=== PATIENT | male | born 1985 | race African-American/Black ===

== ENCOUNTER 2021-06-07 03:09 | Inpatient (IN) | payer MEDICAID ==
[~2021-06-07] VITALS: Ht 170.2 cm; Wt 75.0 kg
[2021-06-07 03:46] LABS: CLARITY,URINE CLEAR (Clear); COLOR,URINE YELLOW (Yellow); GLUCOSE, URINE NEGATIVE (Neg); KETONES,URINE NEGATIVE (Neg); LEUKOCYTE ESTERASE ,URINE NEGATIVE (Neg); NITRITES, URINE NEGATIVE (Neg); OCCULT BLOOD,URINE SMALL (Neg); PROTEIN,URINE 100 mg/dl (Neg); UROBILINOGEN,URINE 0.2 E.U/dL (0.2-1.0)
[2021-06-07 04:01] LABS: UA COLLECTION TYPE NON-SPECIFIED
[2021-06-07 04:18] LABS: SQUAMOUS EPITHELIAL CELL,UR FEW /LPF (FEW)
[2021-06-07 04:19] LABS: HYALINE CASTS 0-3 /LPF (NEGATIVE); WBC CLUMPS,URINE FEW /HPF (NEGATIVE)
[2021-06-07 04:22] LABS: BACTERIA,URINE NONE SEEN /HPF (Neg); SPERM FEW /HPF (NEGATIVE)
[2021-06-07 04:25] LABS: BASOPHILS # (AUTO) 0.1 X10'3 (0-0.2); BASOPHILS % (AUTO) 0.5 % (0-1); EOSINOPHILS # (AUTO) 0.1 X10'3 (0-0.9); EOSINOPHILS % (AUTO) 0.7 % (0-6); HEMOGLOBIN 14.4 g/dl (14.0-17.9); LYMPHOCYTES % (AUTO) 13.8 % (21-51); MEAN CORPUSCULAR HEMOGLOBIN 32.1 PG (27.0-31.0); MEAN CORPUSCULAR HGB CONC 33.5 g/dL (33.0-36.5); MEAN CORPUSCULAR VOLUME 95.9 FL (78-98); MEAN PLATELET VOLUME 7.2 FL (7.4-10.4); MONOCYTES # (AUTO) 2.2 X10'3 (0-0.9); MONOCYTES % (AUTO) 15.2 % (2-12); NEUTROPHILS # (AUTO) 9.9 X10'3 (1.8-7.7); NEUTROPHILS % (AUTO) 69.8 % (42-75); PLATELET COUNT 272 X10'3 (140-440); RED BLOOD COUNT 4.48 X10'6 (4.70-6.10); RED CELL DISTRIBUTION WIDTH 14.5 % (11.5-14.5); WHITE BLOOD COUNT 14.3 X10'3 (4.5-11.0)
[2021-06-07 04:38] LABS: ALANINE AMINOTRANSFERASE 15 U/L (12-78); ALBUMIN 3.4 G/DL (3.4-5.0); ALKALINE PHOSPHATASE 77 IU/L (46-116); ANION GAP 10 (8-16); ASPARTATE AMINO TRANSFERASE 18 U/L (10-37); BILIRUBIN,TOTAL 0.5 MG/DL (0.1-1.0); BLOOD UREA NITROGEN 32 MG/DL (7-18); BUN/CREATININE RATIO 6.9 (5.4-32.0); CHLORIDE 102 MMOL/L (99-107); CREATININE 4.64 MG/DL (0.60-1.10); GLUCOSE 85 MG/DL (70-104); POTASSIUM 4.3 MMOL/L (3.5-5.1); SODIUM 135 MMOL/L (135-145); TOTAL CARBON DIOXIDE 23.1 MMOL/L (24-32); TOTAL PROTEIN 6.8 G/DL (6.4-8.2); eGFR 17 ML/MIN
[2021-06-07] MEDS ORDERED: morphine 4 MG/ML inj SYRINge IV ONE (04:45)
[2021-06-07] MEDS ORDERED: ondansetron/PF 4mg/2ml inj IV ONE (04:45)
[2021-06-07 05:11] LABS: TOTAL CELLS COUNTED 100
[2021-06-07 05:12] LABS: PLATELET ESTIMATE NORMAL; STOMATOCYTES FEW
[2021-06-07] MEDS ORDERED: CefTRIAXone/D5W-Rocephin 1gm 50 ML IV ONE ×2 (06:05→07:00)
--- NOTE | 2021-06-07 06:30 | NUR ---
first contact with pt. found supine in bed, reports abd pain 02/05. will inform md. no distress. awaiting bed assignement.
[2021-06-07] MEDS ORDERED: normal saline 1000ml 1,000 ML IV ONE (07:05)
[2021-06-07] MEDS ORDERED: magnesium 2GM in 50ml NS 50 ML IV PRN (07:15)
[2021-06-07] MEDS ORDERED: bisacodyl 10mg suppository rectal RC PRN (07:15)
[2021-06-07] MEDS ORDERED: potassium Cl 20 mEq SR tablet PO PRN ×2 (07:15)
[2021-06-07] MEDS ORDERED: HYDROcodone/acetaminophen 5mg/325mg tablet PO PRN (07:15)
[2021-06-07] MEDS ORDERED: acetaminophen 325mg tablet PO PRN ×2 (07:15)
[2021-06-07] MEDS ORDERED: magnesium 4gm in 100ml NS 100 ML IV PRN (07:15)
[2021-06-07] MEDS ORDERED: mag hydrox/Alum hydrox/simeth 30ml oral suspension PO PRN (07:15)
[2021-06-07] MEDS ORDERED: magnesium Cl slow-release 64mg tablet PO PRN (07:15)
[2021-06-07] MEDS ORDERED: magnesium hydroxide 30ml (MOM) UD suspension PO PRN (07:15)
[2021-06-07] MEDS: normal saline 1000ml 1,000 ML IV SCH ×3 (07:15→22:58)
[2021-06-07] MEDS ORDERED: potassium CL 10mEq/100ml bag 100 ML IV PRN (07:15)
[2021-06-07] MEDS ORDERED: HYDROcodone/acetaminophen 10/325mg tab PO PRN (07:15)
[2021-06-07] MEDS ORDERED: ondansetron/PF 4mg/2ml inj IV PRN (07:15)
[2021-06-07] MEDS: docusate sod 100mg capsule PO SCH ×2 (07:42→20:30)
--- NOTE | 2021-06-07 07:56 | NUR ---
SPOKE WITH DR ALFREDO AND RECEIVED ORDER FOR REGULAR DIET FOR PATIENT.
[2021-06-07] MEDS ORDERED: CefTRIAXone/D5W-Rocephin 1gm 50 ML IV SCH (08:00)
[2021-06-07] MEDS: K and/or MAG REPLACEMENT MC SCH ×2 (08:00→20:00)
[2021-06-07 08:23] LABS: MAGNESIUM 1.6 MG/DL (1.5-2.4); POTASSIUM 5.1 MMOL/L (3.5-5.1)
--- NOTE | 2021-06-07 08:30 | NUR ---
breakfast tray provided for pt.
[2021-06-07] MEDS: heparin, porcine 5000 units/ml vial SQ SCH ×3 (09:15→20:26)
[2021-06-07] MEDS ORDERED: SERT-433 PO (09:29)
[2021-06-07] MEDS ORDERED: FLO0.4C PO (09:29)
[2021-06-07] MEDS ORDERED: SILD100T70 PO (09:29)
--- NOTE | 2021-06-07 10:00 | NUR ---
HOSPITALIST PAGED REGARDING IV PAIN MEDS. PT REQUESTING IV PAIN MEDS, STATES NORCO DID NOT WORK AND DOES NOT WANT NORCO.
--- NOTE | 2021-06-07 12:00 | NUR ---
LAB AT BEDSIDE.
--- NOTE | 2021-06-07 13:15 | NUR ---
DR CALDERA AT BEDSIDE FOR EVALUATION
--- NOTE | 2021-06-07 13:30 | NUR ---
IV PAIN MED ORDER RECEIVED, WILL CARRY OUT.
[2021-06-07] MEDS ORDERED: piperacillin/tazo 3.375gm/50ml 50 ML IV SCH (14:25)
[2021-06-07] MEDS: HYDROmorphone inj. 0.5 MG/0.5 ML DISP.SYRIN IV PRN ×2 (15:33→20:24)
[2021-06-07 15:42] LABS: TOTAL PROTEIN,URINE RANDOM 202.7 MG/DL
[2021-06-07] MEDS ORDERED: non-formulary drug (Sildenafil Citrate 1 TAB) PO PRN (16:25)
--- NOTE | 2021-06-07 16:52 | NUR ---
TELEPHONE REPORT TO PHIL DOSS.
[2021-06-07] MEDS ORDERED: thiamine 100mg tablet PO ONE (17:10)
--- NOTE | 2021-06-07 17:37 | NUR ---
TELEPHONE REPORT received from ER NURSE PHIL LANE.
--- NOTE | 2021-06-07 17:38 | NUR ---
Patient admitted to room 355A AAOX4. no distress noted at this time, denied pain V/S as follow T98.3 P88 R20 02 98RA B/P 184/91
[2021-06-07 17:55] VITALS: BP 180/88
[2021-06-07 20:00] VITALS: BP 182/118
[2021-06-07] MEDS ORDERED: temazepam 15mg capsule PO PRN (21:00)
[2021-06-08] VITALS: BP 163/99
[2021-06-08] MEDS: HYDROmorphone inj. 0.5 MG/0.5 ML DISP.SYRIN IV PRN ×3 (01:14→09:23)
[2021-06-08] MEDS: folic acid/vitamin B complex w/vitamin C 0.8mg tablet PO SCH ×2 (05:19→08:21)
[2021-06-08] MEDS: normal saline 1000ml 1,000 ML IV SCH ×3 (05:38→21:20)
[2021-06-08 06:16] LABS: BASOPHILS % (AUTO) 0.4 % (0-1); EOSINOPHILS # (AUTO) 0.1 X10'3 (0-0.9); EOSINOPHILS % (AUTO) 0.6 % (0-6); HEMATOCRIT 40.9 % (42.0-52.0); HEMOGLOBIN 13.7 g/dl (14.0-17.9); LYMPHOCYTES # (AUTO) 1.3 X10'3 (1.1-4.8); LYMPHOCYTES % (AUTO) 11.6 % (21-51); MEAN CORPUSCULAR HEMOGLOBIN 31.9 PG (27.0-31.0); MEAN CORPUSCULAR HGB CONC 33.5 g/dL (33.0-36.5); MEAN CORPUSCULAR VOLUME 95.1 FL (78-98); MEAN PLATELET VOLUME 7.4 FL (7.4-10.4); MONOCYTES # (AUTO) 1.3 X10'3 (0-0.9); MONOCYTES % (AUTO) 11.9 % (2-12); NEUTROPHILS # (AUTO) 8.6 X10'3 (1.8-7.7); NEUTROPHILS % (AUTO) 75.5 % (42-75); PLATELET COUNT 248 X10'3 (140-440); RED CELL DISTRIBUTION WIDTH 14.1 % (11.5-14.5); WHITE BLOOD COUNT 11.4 X10'3 (4.5-11.0)
[2021-06-08 06:46] LABS: ALANINE AMINOTRANSFERASE 13 U/L (12-78); ALBUMIN 3.1 G/DL (3.4-5.0); ALKALINE PHOSPHATASE 84 IU/L (46-116); ANION GAP 10 (8-16); ASPARTATE AMINO TRANSFERASE 14 U/L (10-37); BILIRUBIN,TOTAL 0.8 MG/DL (0.1-1.0); BLOOD UREA NITROGEN 41 MG/DL (7-18); BUN/CREATININE RATIO 8.1 (5.4-32.0); CALCIUM 7.3 MG/DL (8.5-10.1); CHLORIDE 102 MMOL/L (99-107); CREATININE 5.09 MG/DL (0.60-1.10); GLUCOSE 104 MG/DL (70-104); MAGNESIUM 1.5 MG/DL (1.5-2.4); POTASSIUM 4.2 MMOL/L (3.5-5.1); SODIUM 135 MMOL/L (135-145); TOTAL CARBON DIOXIDE 22.7 MMOL/L (24-32); TOTAL PROTEIN 6.1 G/DL (6.4-8.2); eGFR 16 ML/MIN
[2021-06-08] MEDS: heparin, porcine 5000 units/ml vial SQ SCH ×2 (08:00→19:42)
[2021-06-08] MEDS: K and/or MAG REPLACEMENT MC SCH ×2 (08:00→20:00)
[2021-06-08] MEDS: sertraline 50mg tablet PO SCH (08:21)
[2021-06-08] MEDS: tamsulosin 0.4mg capsule PO SCH (08:21)
[2021-06-08] MEDS: docusate sod 100mg capsule PO SCH ×2 (08:21→20:39)
[2021-06-08 09:09] VITALS: BP 171/98
[2021-06-08] MEDS: hydrALAZINE 20mg/ml inj. IV PRN (09:32)
[2021-06-08] MEDS: piperacillin/tazo 3.375gm/50ml 50 ML IV SCH ×2 (11:48)
[2021-06-08 13:08] VITALS: BP 164/107
[2021-06-08] MEDS: HYDROmorphone 1 mg/ml syringe IV PRN ×3 (13:21→21:17)
[2021-06-08 14:40] LABS: CREATINE KINASE 52 U/L (39-308)
[2021-06-08 20:52] VITALS: BP 154/97
[2021-06-09] MEDS: piperacillin/tazo 3.375gm/50ml 50 ML IV SCH ×3 (00:10→11:38)
[2021-06-09] MEDS: normal saline 1000ml 1,000 ML IV SCH ×3 (01:38→20:48)
[2021-06-09] MEDS: HYDROmorphone 1 mg/ml syringe IV PRN ×6 (02:07→20:52)
[2021-06-09] MEDS: hydrALAZINE 20mg/ml inj. IV PRN ×2 (04:15→11:39)
[2021-06-09 05:50] LABS: BASOPHILS % (AUTO) 0.3 % (0-1); EOSINOPHILS # (AUTO) 0.1 X10'3 (0-0.9); EOSINOPHILS % (AUTO) 0.8 % (0-6); HEMATOCRIT 42.5 % (42.0-52.0); HEMOGLOBIN 14.2 g/dl (14.0-17.9); LYMPHOCYTES # (AUTO) 1.8 X10'3 (1.1-4.8); MEAN CORPUSCULAR HEMOGLOBIN 32.1 PG (27.0-31.0); MEAN CORPUSCULAR HGB CONC 33.5 g/dL (33.0-36.5); MEAN CORPUSCULAR VOLUME 95.7 FL (78-98); MEAN PLATELET VOLUME 7.5 FL (7.4-10.4); MONOCYTES # (AUTO) 1.2 X10'3 (0-0.9); MONOCYTES % (AUTO) 10.1 % (2-12); NEUTROPHILS # (AUTO) 8.8 X10'3 (1.8-7.7); NEUTROPHILS % (AUTO) 73.8 % (42-75); PLATELET COUNT 256 X10'3 (140-440); RED BLOOD COUNT 4.44 X10'6 (4.70-6.10); RED CELL DISTRIBUTION WIDTH 13.9 % (11.5-14.5)
[2021-06-09 06:34] LABS: ALANINE AMINOTRANSFERASE 16 U/L (12-78); ALBUMIN 3.2 G/DL (3.4-5.0); ALBUMIN/GLOBULIN RATIO 0.9 (1.1-1.5); ALKALINE PHOSPHATASE 85 IU/L (46-116); ANION GAP 12 (8-16); ASPARTATE AMINO TRANSFERASE 14 U/L (10-37); BILIRUBIN,TOTAL 0.7 MG/DL (0.1-1.0); BLOOD UREA NITROGEN 38 MG/DL (7-18); BUN/CREATININE RATIO 8.6 (5.4-32.0); CALCIUM 8.1 MG/DL (8.5-10.1); CHLORIDE 105 MMOL/L (99-107); GLUCOSE 106 MG/DL (70-104); MAGNESIUM 1.8 MG/DL (1.5-2.4); POTASSIUM 3.7 MMOL/L (3.5-5.1); SODIUM 139 MMOL/L (135-145); TOTAL CARBON DIOXIDE 21.7 MMOL/L (24-32); TOTAL PROTEIN 6.7 G/DL (6.4-8.2); eGFR 19 ML/MIN
[2021-06-09] MEDS: tamsulosin 0.4mg capsule PO SCH (07:36)
[2021-06-09] MEDS: folic acid/vitamin B complex w/vitamin C 0.8mg tablet PO SCH (07:36)
[2021-06-09] MEDS: docusate sod 100mg capsule PO SCH ×2 (07:37→19:58)
[2021-06-09] MEDS: sertraline 50mg tablet PO SCH (07:37)
[2021-06-09] MEDS: heparin, porcine 5000 units/ml vial SQ SCH ×2 (07:37→19:54)
[2021-06-09] MEDS: K and/or MAG REPLACEMENT MC SCH ×2 (08:00→20:00)
[2021-06-09] MEDS ORDERED: LORazepam 0.5 MG tablet PO PRN (15:00)
[2021-06-09] MEDS: amLODIPine 5mg tablet PO SCH (15:38)
[2021-06-09 20:00] VITALS: BP 175/95
[2021-06-09] MEDS: diatr meglu/diatrizoate 30ml oral sol.-(3 dose) bottle PO SCH (21:25)
[2021-06-10] VITALS: BP 180/102
[2021-06-10 00:02] VITALS: BP 160/94
[2021-06-10] MEDS: piperacillin/tazo 3.375gm/50ml 50 ML IV SCH ×2 (00:24→12:33)
[2021-06-10] MEDS: HYDROmorphone 1 mg/ml syringe IV PRN ×5 (01:21→21:06)
[2021-06-10] MEDS: normal saline 1000ml 1,000 ML IV SCH ×2 (05:02→21:04)
[2021-06-10 06:32] LABS: BASOPHILS % (AUTO) 0.3 % (0-1); EOSINOPHILS # (AUTO) 0.2 X10'3 (0-0.9); HEMATOCRIT 39.9 % (42.0-52.0); HEMOGLOBIN 13.4 g/dl (14.0-17.9); LYMPHOCYTES # (AUTO) 1.3 X10'3 (1.1-4.8); LYMPHOCYTES % (AUTO) 14.3 % (21-51); MEAN CORPUSCULAR HEMOGLOBIN 32.3 PG (27.0-31.0); MEAN CORPUSCULAR HGB CONC 33.6 g/dL (33.0-36.5); MEAN PLATELET VOLUME 7.7 FL (7.4-10.4); MONOCYTES # (AUTO) 1.2 X10'3 (0-0.9); NEUTROPHILS # (AUTO) 6.4 X10'3 (1.8-7.7); NEUTROPHILS % (AUTO) 70.4 % (42-75); PLATELET COUNT 272 X10'3 (140-440); RED BLOOD COUNT 4.16 X10'6 (4.70-6.10); RED CELL DISTRIBUTION WIDTH 14.1 % (11.5-14.5); WHITE BLOOD COUNT 9.1 X10'3 (4.5-11.0)
[2021-06-10] MEDS: hydrALAZINE 20mg/ml inj. IV PRN ×2 (06:32→19:43)
[2021-06-10 06:57] LABS: ALANINE AMINOTRANSFERASE 11 U/L (12-78); ALBUMIN 2.9 G/DL (3.4-5.0); ALKALINE PHOSPHATASE 67 IU/L (46-116); ANION GAP 14 (8-16); ASPARTATE AMINO TRANSFERASE 13 U/L (10-37); BILIRUBIN,TOTAL 0.5 MG/DL (0.1-1.0); BLOOD UREA NITROGEN 28 MG/DL (7-18); BUN/CREATININE RATIO 10.3 (5.4-32.0); CALCIUM 8.2 MG/DL (8.5-10.1); CHLORIDE 109 MMOL/L (99-107); CREATININE 2.73 MG/DL (0.60-1.10); GLUCOSE 99 MG/DL (70-104); MAGNESIUM 1.6 MG/DL (1.5-2.4); POTASSIUM 4.3 MMOL/L (3.5-5.1); SODIUM 142 MMOL/L (135-145); TOTAL CARBON DIOXIDE 19.3 MMOL/L (24-32); TOTAL PROTEIN 5.8 G/DL (6.4-8.2); eGFR 32 ML/MIN
[2021-06-10] MEDS: diatr meglu/diatrizoate 30ml oral sol.-(3 dose) bottle PO SCH ×2 (07:27→10:01)
[2021-06-10 07:47] VITALS: BP 137/84
[2021-06-10] MEDS: heparin, porcine 5000 units/ml vial SQ SCH ×2 (08:20→19:37)
[2021-06-10] MEDS: tamsulosin 0.4mg capsule PO SCH (08:21)
[2021-06-10] MEDS: folic acid/vitamin B complex w/vitamin C 0.8mg tablet PO SCH (08:21)
[2021-06-10] MEDS: sertraline 50mg tablet PO SCH (08:21)
[2021-06-10] MEDS: amLODIPine 5mg tablet PO SCH (08:21)
[2021-06-10] MEDS: docusate sod 100mg capsule PO SCH ×2 (08:21→19:44)
[2021-06-10] MEDS: K and/or MAG REPLACEMENT MC SCH ×2 (08:36→19:45)
[2021-06-10 12:00] VITALS: BP 157/101
[2021-06-10 20:42] VITALS: BP 171/97
[2021-06-11] VITALS: BP 150/90
[2021-06-11] MEDS: piperacillin/tazo 3.375gm/50ml 50 ML IV SCH ×4 (00:42→23:46)
[2021-06-11] MEDS: HYDROmorphone 1 mg/ml syringe IV PRN ×3 (01:05→09:19)
[2021-06-11 06:36] LABS: BASOPHILS % (AUTO) 0.3 % (0-1); EOSINOPHILS # (AUTO) 0.2 X10'3 (0-0.9); EOSINOPHILS % (AUTO) 2.1 % (0-6); HEMATOCRIT 44.1 % (42.0-52.0); HEMOGLOBIN 14.7 g/dl (14.0-17.9); LYMPHOCYTES # (AUTO) 1.1 X10'3 (1.1-4.8); LYMPHOCYTES % (AUTO) 11.5 % (21-51); MEAN CORPUSCULAR HEMOGLOBIN 32.1 PG (27.0-31.0); MEAN CORPUSCULAR HGB CONC 33.2 g/dL (33.0-36.5); MEAN CORPUSCULAR VOLUME 96.7 FL (78-98); MEAN PLATELET VOLUME 7.5 FL (7.4-10.4); MONOCYTES # (AUTO) 1.3 X10'3 (0-0.9); MONOCYTES % (AUTO) 13.4 % (2-12); NEUTROPHILS # (AUTO) 6.9 X10'3 (1.8-7.7); NEUTROPHILS % (AUTO) 72.7 % (42-75); PLATELET COUNT 319 X10'3 (140-440); RED BLOOD COUNT 4.57 X10'6 (4.70-6.10); RED CELL DISTRIBUTION WIDTH 14.4 % (11.5-14.5); WHITE BLOOD COUNT 9.5 X10'3 (4.5-11.0)
[2021-06-11 06:48] LABS: ALANINE AMINOTRANSFERASE 12 U/L (12-78); ALBUMIN/GLOBULIN RATIO 0.9 (1.1-1.5); ALKALINE PHOSPHATASE 71 IU/L (46-116); ANION GAP 12 (8-16); ASPARTATE AMINO TRANSFERASE 11 U/L (10-37); BILIRUBIN,TOTAL 0.4 MG/DL (0.1-1.0); BLOOD UREA NITROGEN 16 MG/DL (7-18); BUN/CREATININE RATIO 9.4 (5.4-32.0); CALCIUM 8.5 MG/DL (8.5-10.1); CHLORIDE 110 MMOL/L (99-107); GLUCOSE 92 MG/DL (70-104); MAGNESIUM 1.2 MG/DL (1.5-2.4); POTASSIUM 4.4 MMOL/L (3.5-5.1); SODIUM 143 MMOL/L (135-145); TOTAL CARBON DIOXIDE 21.2 MMOL/L (24-32); TOTAL PROTEIN 6.2 G/DL (6.4-8.2); eGFR 55 ML/MIN
[2021-06-11 07:00] VITALS: BP 163/97
[2021-06-11] MEDS: K and/or MAG REPLACEMENT MC SCH ×2 (08:00→20:00)
[2021-06-11] MEDS: sertraline 50mg tablet PO SCH (08:19)
[2021-06-11] MEDS: docusate sod 100mg capsule PO SCH ×2 (08:19→19:38)
[2021-06-11] MEDS: tamsulosin 0.4mg capsule PO SCH (08:20)
[2021-06-11] MEDS: heparin, porcine 5000 units/ml vial SQ SCH ×2 (08:20→19:39)
[2021-06-11] MEDS: folic acid/vitamin B complex w/vitamin C 0.8mg tablet PO SCH (08:20)
[2021-06-11] MEDS: amLODIPine 5mg tablet PO SCH (08:20)
[2021-06-11] MEDS ORDERED: amLODIPine 5mg tablet PO ONE (08:35)
[2021-06-11] MEDS: normal saline 1000ml 1,000 ML IV SCH ×2 (09:19→23:31)
--- NOTE | 2021-06-11 09:53 | NUR ---
VO from dr jailene khalil for PO mg replacement
[2021-06-11] MEDS ORDERED: magnesium 4gm in 100ml NS 100 ML IV PRN (10:55)
[2021-06-11] MEDS ORDERED: potassium Cl 40MEQ/1/2NS 520ml 520 ML IV PRN (10:55)
[2021-06-11 11:49] VITALS: BP 167/101
[2021-06-11] MEDS: magnesium Cl slow-release 64mg tablet PO PRN ×3 (12:11→23:18)
[2021-06-11] MEDS: hydrALAZINE 20mg/ml inj. IV PRN (12:11)
--- NOTE | 2021-06-11 12:39 | NUR ---
message to dr jailene hernandez"PAGER ID: [phone] MESSAGE: [place] requesting Letcher be changed to another PO med, maybe Percocet. ~Jeannette [phone]"
[2021-06-11] MEDS: oxyCODONE/APAP 5-325mg tablet PO PRN (17:39)
[2021-06-11 18:00] VITALS: BP 135/89
[2021-06-11 20:47] VITALS: BP 135/89
[2021-06-12 00:10] VITALS: BP 145/85
[2021-06-12] MEDS: oxyCODONE/APAP 5-325mg tablet PO PRN ×3 (00:44→09:34)
[2021-06-12 06:12] LABS: BASOPHILS % (AUTO) 0.2 % (0-1); EOSINOPHILS # (AUTO) 0.2 X10'3 (0-0.9); EOSINOPHILS % (AUTO) 2.2 % (0-6); HEMOGLOBIN 15.1 g/dl (14.0-17.9); LYMPHOCYTES # (AUTO) 1.9 X10'3 (1.1-4.8); LYMPHOCYTES % (AUTO) 20.9 % (21-51); MEAN CORPUSCULAR HEMOGLOBIN 32.7 PG (27.0-31.0); MEAN CORPUSCULAR HGB CONC 34.3 g/dL (33.0-36.5); MEAN CORPUSCULAR VOLUME 95.1 FL (78-98); MEAN PLATELET VOLUME 7.1 FL (7.4-10.4); MONOCYTES # (AUTO) 1.3 X10'3 (0-0.9); MONOCYTES % (AUTO) 15.1 % (2-12); NEUTROPHILS # (AUTO) 5.5 X10'3 (1.8-7.7); NEUTROPHILS % (AUTO) 61.6 % (42-75); PLATELET COUNT 340 X10'3 (140-440); RED BLOOD COUNT 4.63 X10'6 (4.70-6.10); RED CELL DISTRIBUTION WIDTH 14.1 % (11.5-14.5); WHITE BLOOD COUNT 8.9 X10'3 (4.5-11.0)
[2021-06-12 06:39] LABS: ALANINE AMINOTRANSFERASE 14 U/L (12-78); ALBUMIN 2.9 G/DL (3.4-5.0); ALBUMIN/GLOBULIN RATIO 0.9 (1.1-1.5); ANION GAP 8 (8-16); ASPARTATE AMINO TRANSFERASE 15 U/L (10-37); BILIRUBIN,TOTAL 0.4 MG/DL (0.1-1.0); BLOOD UREA NITROGEN 10 MG/DL (7-18); BUN/CREATININE RATIO 7.2 (5.4-32.0); CALCIUM 8.2 MG/DL (8.5-10.1); CHLORIDE 109 MMOL/L (99-107); CREATININE 1.39 MG/DL (0.60-1.10); GLUCOSE 81 MG/DL (70-104); POTASSIUM 3.9 MMOL/L (3.5-5.1); SODIUM 141 MMOL/L (135-145); TOTAL CARBON DIOXIDE 23.8 MMOL/L (24-32); TOTAL PROTEIN 6.2 G/DL (6.4-8.2); eGFR 70 ML/MIN
[2021-06-12 06:48] LABS: PLATELET ESTIMATE NORMAL; TOTAL CELLS COUNTED 100
--- NOTE | 2021-06-12 06:48 | NUR ---
Patient in room NADIA 351. I have received report from VENITA VILLARREAL, and had the opportunity to ask questions and assume patient care.
[2021-06-12 06:49] LABS: ALKALINE PHOSPHATASE 64 IU/L (46-116)
[2021-06-12 07:26] VITALS: BP 138/96
[2021-06-12] MEDS: K and/or MAG REPLACEMENT MC SCH (07:37)
[2021-06-12] MEDS: docusate sod 100mg capsule PO SCH (07:49)
[2021-06-12] MEDS: tamsulosin 0.4mg capsule PO SCH (07:49)
[2021-06-12] MEDS: sertraline 50mg tablet PO SCH (07:49)
[2021-06-12] MEDS: folic acid/vitamin B complex w/vitamin C 0.8mg tablet PO SCH (07:52)
[2021-06-12] MEDS: heparin, porcine 5000 units/ml vial SQ SCH (07:52)
[2021-06-12] MEDS ORDERED: amLODIPine 5mg tablet PO SCH (08:00)
[2021-06-12] MEDS: normal saline 1000ml 1,000 ML IV SCH (11:18)
[2021-06-12 11:52] VITALS: BP 133/81
[2021-06-12] MEDS: piperacillin/tazo 3.375gm/50ml 50 ML IV SCH (12:33)
[2021-06-12] MEDS ORDERED: CIPR-260 PO (14:41)
--- NOTE | 2021-06-12 15:26 | NUR ---
Patient discharged home with friend BRENDA4. no distress/SOB noted at this time.
== END 2021-06-12 15:17 | disposition home or self-care (01) | DRG 463 ==
LOC: ER 03:11 → ED HOLD 07:20 → EEVIPCON 07:20 → SUR 3N 17:32
PROVIDERS: ADMIT Family Medicine; ATTEND Family Medicine
DX: N10 Acute pyelonephritis (principal); N17.9 Acute kidney failure, unspecified; F10.20 Alcohol dependence, uncomplicated; F14.90 Cocaine use, unspecified, uncomplicated; I10 Essential (primary) hypertension; F17.210 Nicotine dependence, cigarettes, uncomplicated; Z56.0 Unemployment, unspecified; Z79.899 Other long term (current) drug therapy
CPT/HCPCS: 36415; 74176; 76770; 80053; 81001; 82550; 82570; 83605; 83735; 83935; 84132; 84133; 84156; 84300; 85007; 85025; 87040; 87081; 87088; 93975; 96365; 99285; G0378; J0360; J0696; J1170; J1644; J2270; J2405; J2543; J7030; Q9963

== ENCOUNTER 2022-01-31 11:00 | Emergency (ER) | payer MEDICAID ==
[~2022-01-31] VITALS: Ht 170.2 cm; Wt 79.5 kg
[~2022-01-31 11:00] MED LIST: CIPR-260 PO; FLO0.4C PO; SERT-433 PO; SILD100T70 PO
[2022-01-31 11:22] VITALS: BP 158/90
--- NOTE | 2022-01-31 11:36 | NUR ---
per vicky briggs in triage, removed catheter, there was 8cc fluid in blub. 50cc red urine in leg bag. pt is a smoker.
--- NOTE | 2022-01-31 11:46 | NUR ---
pt reports relief from pain after catheter removed. pt voided 50cc in cup
[2022-01-31] MEDS ORDERED: HYDROcodone/acetaminophen 5mg/325mg tablet PO ONE (13:50)
== END 2022-01-31 14:11 | disposition home or self-care (01) ==
LOC: ER 11:01
DX: T85.9XXA Unspecified complication of internal prosthetic device, implant and graft, initial encounter (principal); R33.9 Retention of urine, unspecified; N32.89 Other specified disorders of bladder
CPT/HCPCS: 99283

== ENCOUNTER 2022-02-14 16:22 | Emergency (ER) | payer MEDICAID ==
[~2022-02-14] VITALS: Ht 167.6 cm; Wt 74.3 kg
[2022-02-14 16:49] VITALS: BP 145/100
--- NOTE | 2022-02-14 21:10 | NUR ---
pt. bladder scanned. no urine seen. pt stated that he has kidney failure.
[2022-02-14 21:52] LABS: CLARITY,URINE SLIGHTLY CLOUDY (Clear); COLOR,URINE YELLOW (Yellow); GLUCOSE, URINE NEGATIVE (Neg); KETONES,URINE NEGATIVE (Neg); LEUKOCYTE ESTERASE ,URINE NEGATIVE (Neg); NITRITES, URINE NEGATIVE (Neg); OCCULT BLOOD,URINE NEGATIVE (Neg); PROTEIN,URINE TRACE mg/dl (Neg); UROBILINOGEN,URINE 0.2 E.U/dL (0.2-1.0)
[2022-02-14 21:59] LABS: UA COLLECTION TYPE CLN CATCH MIDSTREAM
[2022-02-14 22:13] LABS: BACTERIA,URINE FEW /HPF (Neg); MUCUS STRANDS FEW /LPF (Neg); SPERM MANY /HPF (NEGATIVE); SQUAMOUS EPITHELIAL CELL,UR NONE SEEN /LPF (FEW)
[2022-02-15 01:37] LABS: URINE AMPHETAMINE SCREEN POSITIVE (Neg); URINE BARBITUATE SCREEN NEGATIVE (Neg); URINE BENZODIAZEPINES SCREEN NEGATIVE (Neg); URINE CANNABINOID SCREEN NEGATIVE (Neg); URINE COCAINE SCREEN NEGATIVE (Neg); URINE METHADONE SCREEN NEGATIVE (Neg); URINE OPIATE SCREEN NEGATIVE (Neg); URINE PHENCYCLIDINE SCREEN NEGATIVE (Neg)
--- NOTE | 2022-02-15 01:48 | NUR ---
blood sent to lab
[2022-02-15 01:56] LABS: BASOPHILS # (AUTO) 0.1 X10'3 (0-0.2); BASOPHILS % (AUTO) 0.9 % (0-1); EOSINOPHILS # (AUTO) 0.1 X10'3 (0-0.9); EOSINOPHILS % (AUTO) 1.3 % (0-6); HEMATOCRIT 42.8 % (42.0-52.0); HEMOGLOBIN 15.1 g/dl (14.0-17.9); LYMPHOCYTES # (AUTO) 2.9 X10'3 (1.1-4.8); MEAN CORPUSCULAR HEMOGLOBIN 33.7 PG (27.0-31.0); MEAN CORPUSCULAR HGB CONC 35.2 g/dL (33.0-36.5); MEAN CORPUSCULAR VOLUME 95.8 FL (78-98); MEAN PLATELET VOLUME 6.4 FL (7.4-10.4); MONOCYTES % (AUTO) 11.5 % (2-12); NEUTROPHILS # (AUTO) 4.7 X10'3 (1.8-7.7); NEUTROPHILS % (AUTO) 53.3 % (42-75); PLATELET COUNT 327 X10'3 (140-440); RED BLOOD COUNT 4.46 X10'6 (4.70-6.10); RED CELL DISTRIBUTION WIDTH 14.1 % (11.5-14.5); WHITE BLOOD COUNT 8.8 X10'3 (4.5-11.0)
[2022-02-15 02:06] LABS: ALANINE AMINOTRANSFERASE 23 U/L (12-78); ALBUMIN 3.7 G/DL (3.4-5.0); ALBUMIN/GLOBULIN RATIO 1.1 (1.1-1.5); ALKALINE PHOSPHATASE 88 IU/L (46-116); ANION GAP 3 (8-16); ASPARTATE AMINO TRANSFERASE 36 U/L (10-37); BILIRUBIN,TOTAL 0.6 MG/DL (0.1-1.0); BLOOD UREA NITROGEN 22 MG/DL (7-18); BUN/CREATININE RATIO 23.4 (5.4-32.0); CALCIUM 9.1 MG/DL (8.5-10.1); CHLORIDE 100 MMOL/L (99-107); CREATININE 0.94 MG/DL (0.60-1.10); GLUCOSE 99 MG/DL (70-104); POTASSIUM 4.2 MMOL/L (3.5-5.1); SODIUM 133 MMOL/L (135-145); TOTAL CARBON DIOXIDE 29.7 MMOL/L (24-32); TOTAL PROTEIN 7.2 G/DL (6.4-8.2); eGFR > 90 ML/MIN
[2022-02-15] MEDS ORDERED: levoFLOXACIN 250mg tablet PO ONE (02:20)
[2022-02-15] MEDS ORDERED: CIPR-202 PO (02:20)
== END 2022-02-15 02:42 | disposition home or self-care (01) ==
LOC: ER 16:23
DX: N39.0 Urinary tract infection, site not specified (principal); M54.89 Other dorsalgia; F14.90 Cocaine use, unspecified, uncomplicated; Z72.89 Other problems related to lifestyle; Z56.0 Unemployment, unspecified; Z88.8 Allergy status to other drugs, medicaments and biological substances; Z79.2 Long term (current) use of antibiotics; Z79.899 Other long term (current) drug therapy
CPT/HCPCS: 36415; 80053; 80305; 81001; 85025; 87088; 99283

== ENCOUNTER 2022-03-16 14:31 | Emergency (ER) | payer MEDICAID ==
[~2022-03-16] VITALS: Ht 167.6 cm; Wt 90.0 kg
[~2022-03-16 14:31] MED LIST changes: +CIPR-202 PO
[2022-03-16 14:40] VITALS: BP 154/82
== END 2022-03-16 16:45 | disposition left against medical advice (07) ==
LOC: ER 14:32
DX: Z76.0 Encounter for issue of repeat prescription (principal); Z53.21 Procedure and treatment not carried out due to patient leaving prior to being seen by health care provider

== ENCOUNTER 2022-06-27 17:57 | Emergency (ER) | payer MEDICAID ==
[~2022-06-27] VITALS: Ht 167.6 cm; Wt 77.3 kg
[~2022-06-27 17:57] MED LIST changes: -CIPR-202 PO
[2022-06-27 18:07] VITALS: BP 138/109
== END 2022-06-27 20:43 | disposition home or self-care (01) ==
LOC: ER 17:58
DX: M25.562 Pain in left knee (principal); R07.89 Other chest pain; M25.552 Pain in left hip; F17.210 Nicotine dependence, cigarettes, uncomplicated; F14.90 Cocaine use, unspecified, uncomplicated; Z72.89 Other problems related to lifestyle; Z56.0 Unemployment, unspecified; Z88.8 Allergy status to other drugs, medicaments and biological substances; Z79.899 Other long term (current) drug therapy; W01.0XXA Fall on same level from slipping, tripping and stumbling without subsequent striking against object, initial encounter; Y93.89 Activity, other specified; Y92.89 Other specified places as the place of occurrence of the external cause; Y99.8 Other external cause status
CPT/HCPCS: 71250; 74176; 99284

== ENCOUNTER 2022-09-14 10:45 | Emergency (ER) | payer MEDICAID, OTHER ==
[~2022-09-14] VITALS: Ht 167.6 cm; Wt 77.3 kg
[2022-09-14 10:47] VITALS: BP 139/96
[2022-09-14] MEDS ORDERED: ibuprofen tablet 400 MG TABLET PO ONE (11:15)
[2022-09-14] MEDS ORDERED: IBUP-1986 PO (11:18)
== END 2022-09-14 11:31 | disposition home or self-care (01) ==
LOC: ER 10:46
DX: M25.562 Pain in left knee (principal); F11.10 Opioid abuse, uncomplicated; Z79.899 Other long term (current) drug therapy; Z88.6 Allergy status to analgesic agent; Z79.1 Long term (current) use of non-steroidal anti-inflammatories (NSAID); W19.XXXA Unspecified fall, initial encounter; Y93.89 Activity, other specified; Y92.89 Other specified places as the place of occurrence of the external cause; Y99.8 Other external cause status
CPT/HCPCS: 73564; 99283

== ENCOUNTER 2023-10-19 12:12 | Emergency (ER) | payer MEDICAID ==
[~2023-10-19] VITALS: Ht 167.6 cm; Wt 68.5 kg
[~2023-10-19 12:12] MED LIST changes: +IBUP-1986 PO
[2023-10-19 14:04] VITALS: BP 137/100; PULSE 83; RESP 16; TEMP 98; O2SAT 99
== END 2023-10-19 14:01 | disposition home or self-care (01) ==
LOC: ER 12:13
DX: G56.01 Carpal tunnel syndrome, right upper limb (principal); R00.2 Palpitations; F10.90 Alcohol use, unspecified, uncomplicated; F14.90 Cocaine use, unspecified, uncomplicated; Z79.899 Other long term (current) drug therapy; Z79.2 Long term (current) use of antibiotics; Z88.8 Allergy status to other drugs, medicaments and biological substances
CPT/HCPCS: 93005; 99283

== ENCOUNTER 2023-11-06 00:31 | Emergency (ER) | payer MEDICAID ==
[~2023-11-06] VITALS: Ht 170.2 cm; Wt 68.4 kg
[2023-11-06 01:10] LABS: BASOPHILS % (AUTO) 0.6 % (0-1); EOSINOPHILS # (AUTO) 0.1 X10'3 (0-0.9); HEMATOCRIT 38.8 % (42.0-52.0); HEMOGLOBIN 13.1 g/dl (14.0-17.9); LYMPHOCYTES # (AUTO) 2.5 X10'3 (1.1-4.8); LYMPHOCYTES % (AUTO) 32.3 % (21-51); MEAN CORPUSCULAR HEMOGLOBIN 35.7 PG (27.0-31.0); MEAN CORPUSCULAR HGB CONC 33.8 g/dL (33.0-36.5); MEAN CORPUSCULAR VOLUME 105.6 FL (78-98); MEAN PLATELET VOLUME 6.9 FL (7.4-10.4); MONOCYTES # (AUTO) 0.8 X10'3 (0-0.9); MONOCYTES % (AUTO) 10.5 % (2-12); NEUTROPHILS # (AUTO) 4.3 X10'3 (1.8-7.7); NEUTROPHILS % (AUTO) 55.6 % (42-75); PLATELET COUNT 252 X10'3 (140-440); RED BLOOD COUNT 3.68 X10'6 (4.70-6.10); RED CELL DISTRIBUTION WIDTH 13.2 % (11.5-14.5); WHITE BLOOD COUNT 7.7 X10'3 (4.5-11.0)
[2023-11-06 01:28] LABS: ALANINE AMINOTRANSFERASE 50 U/L (12-78); ALBUMIN 3.6 G/DL (3.4-5.0); ALBUMIN/GLOBULIN RATIO 0.9 (1.1-1.5); ALKALINE PHOSPHATASE 99 IU/L (46-116); ANION GAP 9 (8-16); ASPARTATE AMINO TRANSFERASE 76 U/L (10-37); BILIRUBIN,TOTAL 0.8 MG/DL (0.1-1.0); BLOOD UREA NITROGEN 10 MG/DL (7-18); BUN/CREATININE RATIO 13.9 (10.0-20.0); CALCIUM 8.7 MG/DL (8.5-10.1); CHLORIDE 107 MMOL/L (99-107); CREATININE 0.72 MG/DL (0.60-1.10); GLUCOSE 96 MG/DL (70-104); POTASSIUM 3.3 MMOL/L (3.5-5.1); SODIUM 142 MMOL/L (135-145); TOTAL CARBON DIOXIDE 25.7 MMOL/L (24-32); TOTAL PROTEIN 7.7 G/DL (6.4-8.2); eCRCL 129 ML/MIN; eGFR > 90 ML/MIN
[2023-11-06 06:56] VITALS: BP 128/55; PULSE 72; RESP 16; O2SAT 98
[2023-11-06 07:09] VITALS: TEMP 98.1
[2023-11-06] MEDS ORDERED: LEVO-65 PO (08:24)
[2023-11-06] MEDS ORDERED: CefTRIAXone 2gm/D5W 50ml BAG 50 ML IV ONE (08:25)
[2023-11-06 08:37] LABS: BILIRUBIN,URINE SMALL (Neg); CLARITY,URINE SLIGHTLY CLOUDY (Clear); COLOR,URINE YELLOW (Yellow); GLUCOSE, URINE NEGATIVE (Neg); KETONES,URINE TRACE mg/dl (Neg); LEUKOCYTE ESTERASE ,URINE NEGATIVE (Neg); NITRITES, URINE NEGATIVE (Neg); OCCULT BLOOD,URINE NEGATIVE (Neg); PROTEIN,URINE TRACE mg/dl (Neg)
[2023-11-06 08:39] LABS: UA COLLECTION TYPE NON-SPECIFIED
[2023-11-06 08:45] LABS: CAL OXALATE CRYSTALS FEW /HPF (NEGATIVE); SQUAMOUS EPITHELIAL CELL,UR NONE SEEN /LPF (FEW)
[2023-11-06 08:46] LABS: BACTERIA,URINE FEW /HPF (Neg); MUCUS STRANDS FEW /LPF (Neg); RBC,URINE NONE SEEN /HPF (0-2)
== END 2023-11-06 09:19 | disposition home or self-care (01) ==
LOC: ER 00:32
DX: K52.89 Other specified noninfective gastroenteritis and colitis (principal); F10.90 Alcohol use, unspecified, uncomplicated; Z88.8 Allergy status to other drugs, medicaments and biological substances; Z79.2 Long term (current) use of antibiotics; Z79.899 Other long term (current) drug therapy; Z79.1 Long term (current) use of non-steroidal anti-inflammatories (NSAID)
CPT/HCPCS: 36415; 74176; 80053; 81001; 85025; 87088; 87186; 99285

== ENCOUNTER 2024-03-14 16:13 | Emergency (ER) | payer MEDICAID ==
[~2024-03-14] VITALS: Ht 167.6 cm; Wt 68.9 kg
[2024-03-14 16:14] VITALS: BP 168/116; PULSE 106; O2SAT 100
[2024-03-14 17:05] VITALS: RESP 16
[2024-03-14] MEDS: ondansetron 4mg rapidly disintigrating tab PO ONE (17:05)
[2024-03-14] MEDS: proparacaine 0.5% ophthalmic drops 15ml EACHEYE ONE (17:05)
[2024-03-14] MEDS: oxyCODONE/APAP 5-325mg tablet PO ONE (17:05)
[2024-03-14] MEDS: LIDOcaine 1% W/epiNEPHrine 1:100,000 20ml vial SQ ONE (17:20)
[2024-03-14] MEDS ORDERED: CIPR10DR RIGHT EAR (17:52)
[2024-03-14 17:57] VITALS: TEMP 98.6
== END 2024-03-14 17:58 | disposition home or self-care (01) ==
LOC: ER 16:13
DX: T16.1XXA Foreign body in right ear, initial encounter (principal); F14.90 Cocaine use, unspecified, uncomplicated; F10.90 Alcohol use, unspecified, uncomplicated; Z88.8 Allergy status to other drugs, medicaments and biological substances; Z79.899 Other long term (current) drug therapy; Z79.1 Long term (current) use of non-steroidal anti-inflammatories (NSAID); W44.8XXA Other foreign body entering into or through a natural orifice, initial encounter; Y93.89 Activity, other specified; Y92.89 Other specified places as the place of occurrence of the external cause; Y99.8 Other external cause status
CPT/HCPCS: 99283

== ENCOUNTER 2024-03-15 03:07 | Emergency (ER) | payer MEDICAID ==
[~2024-03-15] VITALS: Ht 167.6 cm; Wt 71.2 kg
[~2024-03-15 03:07] MED LIST changes: +CIPR10DR RIGHT EAR
[2024-03-15 03:09] VITALS: TEMP 98.2
[2024-03-15] MEDS: mag hydrox/Alum hydrox/simeth 30ml oral suspension PO ONE (04:53)
[2024-03-15] MEDS: LIDOcaine 2% Viscous 15ml cup MM ONE (04:53)
[2024-03-15 04:59] VITALS: BP 176/118; PULSE 86; RESP 16; O2SAT 98
== END 2024-03-15 05:01 | disposition home or self-care (01) ==
LOC: ER 03:07
DX: K14.0 Glossitis (principal); F17.210 Nicotine dependence, cigarettes, uncomplicated; F14.90 Cocaine use, unspecified, uncomplicated; F10.90 Alcohol use, unspecified, uncomplicated; Z88.8 Allergy status to other drugs, medicaments and biological substances; Z79.1 Long term (current) use of non-steroidal anti-inflammatories (NSAID); Z79.899 Other long term (current) drug therapy
CPT/HCPCS: 99283

== ENCOUNTER 2024-04-05 11:14 | Emergency (ER) | payer MEDICAID ==
[~2024-04-05] VITALS: Ht 167.6 cm; Wt 69.6 kg
[~2024-04-05 11:14] MED LIST changes: -CIPR10DR RIGHT EAR
[2024-04-05 11:18] VITALS: BP 164/118; PULSE 88; RESP 18; TEMP 97.8; O2SAT 100
[2024-04-05 12:17] LABS: APTT 28 SECONDS (22-32); BASOPHILS # (AUTO) 0.1 X10'3 (0-0.2); BASOPHILS % (AUTO) 1.3 % (0-1); EOSINOPHILS # (AUTO) 0.1 X10'3 (0-0.9); EOSINOPHILS % (AUTO) 1.7 % (0-6); HEMATOCRIT 40.8 % (42.0-52.0); HEMOGLOBIN 13.9 g/dl (14.0-17.9); LYMPHOCYTES # (AUTO) 2.5 X10'3 (1.1-4.8); LYMPHOCYTES % (AUTO) 47.7 % (21-51); MEAN CORPUSCULAR HEMOGLOBIN 36.9 PG (27.0-31.0); MEAN CORPUSCULAR HGB CONC 34.2 g/dL (33.0-36.5); MEAN CORPUSCULAR VOLUME 107.9 FL (78-98); MEAN PLATELET VOLUME 7.4 FL (7.4-10.4); MONOCYTES # (AUTO) 0.8 X10'3 (0-0.9); MONOCYTES % (AUTO) 14.9 % (2-12); NEUTROPHILS # (AUTO) 1.8 X10'3 (1.8-7.7); NEUTROPHILS % (AUTO) 34.4 % (42-75); PLATELET COUNT 203 X10'3 (140-440); PROTHROMBIN TIME 10.6 SECONDS (9.0-12.0); RED BLOOD COUNT 3.78 X10'6 (4.70-6.10); RED CELL DISTRIBUTION WIDTH 15.5 % (11.5-14.5); WHITE BLOOD COUNT 5.2 X10'3 (4.5-11.0)
[2024-04-05 12:21] LABS: ALBUMIN 3.4 G/DL (3.4-5.0); ANION GAP 10 (8-16); BLOOD UREA NITROGEN 9 MG/DL (7-18); BUN/CREATININE RATIO 11.1 (10.0-20.0); CALCIUM 8.3 MG/DL (8.5-10.1); CHLORIDE 103 MMOL/L (99-107); CREATININE 0.81 MG/DL (0.60-1.10); GLUCOSE 93 MG/DL (70-104); POTASSIUM 3.5 MMOL/L (3.5-5.1); SODIUM 139 MMOL/L (135-145); TOTAL CARBON DIOXIDE 25.7 MMOL/L (24-32); eCRCL 110 ML/MIN; eGFR > 90 ML/MIN
== END 2024-04-05 13:05 | disposition left against medical advice (07) ==
LOC: ER 11:14
DX: H53.8 Other visual disturbances (principal); I10 Essential (primary) hypertension; H57.13 Ocular pain, bilateral; R79.1 Abnormal coagulation profile; Z88.6 Allergy status to analgesic agent; Z79.2 Long term (current) use of antibiotics; Z79.899 Other long term (current) drug therapy; Z53.21 Procedure and treatment not carried out due to patient leaving prior to being seen by health care provider
CPT/HCPCS: 70450; 71045; 80048; 82948; 84484; 85025; 85610; 85730; 93005

== ENCOUNTER 2024-06-10 01:48 | Emergency (ER) | payer MEDICAID ==
[~2024-06-10] VITALS: Ht 167.6 cm; Wt 65.9 kg
[2024-06-10 02:29] LABS: BASOPHILS # (AUTO) 0.1 X10'3 (0-0.2); EOSINOPHILS % (AUTO) 0.6 % (0-6); HEMATOCRIT 36.6 % (42.0-52.0); HEMOGLOBIN 12.6 g/dl (14.0-17.9); LYMPHOCYTES % (AUTO) 35.1 % (21-51); MEAN CORPUSCULAR HEMOGLOBIN 35.8 PG (27.0-31.0); MEAN CORPUSCULAR HGB CONC 34.5 g/dL (33.0-36.5); MEAN CORPUSCULAR VOLUME 103.8 FL (78-98); MEAN PLATELET VOLUME 9.1 FL (7.4-10.4); MONOCYTES % (AUTO) 17.6 % (2-12); NEUTROPHILS # (AUTO) 2.5 X10'3 (1.8-7.7); NEUTROPHILS % (AUTO) 45.7 % (42-75); PLATELET COUNT 173 X10'3 (140-440); RED BLOOD COUNT 3.53 X10'6 (4.70-6.10); RED CELL DISTRIBUTION WIDTH 17.4 % (11.5-14.5); WHITE BLOOD COUNT 5.6 X10'3 (4.5-11.0)
[2024-06-10 02:48] LABS: ALBUMIN 3.4 G/DL (3.4-5.0); ANION GAP 10 (8-16); BLOOD UREA NITROGEN 5 MG/DL (7-18); BUN/CREATININE RATIO 5.3 (10.0-20.0); CALCIUM 8.2 MG/DL (8.5-10.1); CHLORIDE 95 MMOL/L (99-107); CREATININE 0.95 MG/DL (0.60-1.10); GLUCOSE 90 MG/DL (70-104); MAGNESIUM 1.1 MG/DL (1.5-2.4); POTASSIUM 3.2 MMOL/L (3.5-5.1); PRO BRAIN NATRIURETIC PEPTIDE < 30 PG/ML (0-125); SODIUM 132 MMOL/L (135-145); eCRCL 94 ML/MIN; eGFR > 90 ML/MIN
[2024-06-10 03:05] LABS: NUCLEATED RED BLOOD CELLS 1 /100WBC (0-0); TOTAL CELLS COUNTED 100
[2024-06-10] MEDS: potassium Cl 20 mEq SR tablet PO STA (03:17)
[2024-06-10] MEDS ORDERED: AMLO-315 PO (03:19)
[2024-06-10 03:25] VITALS: BP 114/79; PULSE 68; RESP 17; TEMP 97; O2SAT 99
== END 2024-06-10 03:32 | disposition home or self-care (01) ==
LOC: ER 01:48
DX: I10 Essential (primary) hypertension (principal); R00.2 Palpitations; F14.90 Cocaine use, unspecified, uncomplicated; F10.90 Alcohol use, unspecified, uncomplicated; Y90.9 Presence of alcohol in blood, level not specified; Z88.8 Allergy status to other drugs, medicaments and biological substances; Z79.1 Long term (current) use of non-steroidal anti-inflammatories (NSAID); Z79.899 Other long term (current) drug therapy
CPT/HCPCS: 71045; 80048; 83735; 83880; 84484; 85007; 85025; 93005; 99285

== ENCOUNTER 2024-06-17 17:47 | Emergency (ER) | payer MEDICAID ==
[~2024-06-17] VITALS: Ht 167.6 cm; Wt 66.0 kg
[~2024-06-17 17:47] MED LIST changes: +AMLO-315 PO
[2024-06-17 17:58] VITALS: BP 117/85; PULSE 89; RESP 18; TEMP 98.3; O2SAT 98
[2024-06-17 18:29] LABS: BASOPHILS # (AUTO) 0.1 X10'3 (0-0.2); BASOPHILS % (AUTO) 0.8 % (0-1); EOSINOPHILS % (AUTO) 0.1 % (0-6); HEMATOCRIT 34.7 % (42.0-52.0); HEMOGLOBIN 11.6 g/dl (14.0-17.9); LYMPHOCYTES # (AUTO) 4.5 X10'3 (1.1-4.8); LYMPHOCYTES % (AUTO) 36.4 % (21-51); MEAN CORPUSCULAR HEMOGLOBIN 35.3 PG (27.0-31.0); MEAN CORPUSCULAR HGB CONC 33.4 g/dL (33.0-36.5); MEAN CORPUSCULAR VOLUME 105.9 FL (78-98); MEAN PLATELET VOLUME 9.4 FL (7.4-10.4); MONOCYTES # (AUTO) 1.1 X10'3 (0-0.9); MONOCYTES % (AUTO) 8.9 % (2-12); NEUTROPHILS # (AUTO) 6.6 X10'3 (1.8-7.7); NEUTROPHILS % (AUTO) 53.8 % (42-75); PLATELET COUNT 277 X10'3 (140-440); RED BLOOD COUNT 3.27 X10'6 (4.70-6.10); RED CELL DISTRIBUTION WIDTH 19.4 % (11.5-14.5); WHITE BLOOD COUNT 12.3 X10'3 (4.5-11.0)
[2024-06-17 18:37] LABS: ALANINE AMINOTRANSFERASE 124 U/L (12-78); ALBUMIN 3.3 G/DL (3.4-5.0); ALKALINE PHOSPHATASE 256 IU/L (46-116); ANION GAP 10 (8-16); ASPARTATE AMINO TRANSFERASE 392 U/L (10-37); BILIRUBIN,TOTAL 4.9 MG/DL (0.1-1.0); BLOOD UREA NITROGEN 9 MG/DL (7-18); BUN/CREATININE RATIO 9.9 (10.0-20.0); CALCIUM 7.6 MG/DL (8.5-10.1); CHLORIDE 91 MMOL/L (99-107); CREATININE 0.91 MG/DL (0.60-1.10); GLUCOSE 109 MG/DL (70-104); POTASSIUM 3.4 MMOL/L (3.5-5.1); SODIUM 129 MMOL/L (135-145); TOTAL CARBON DIOXIDE 28.4 MMOL/L (24-32); eCRCL 98 ML/MIN; eGFR > 90 ML/MIN
[2024-06-17 18:44] LABS: PRO BRAIN NATRIURETIC PEPTIDE 36 PG/ML (0-125)
[2024-06-17 18:45] LABS: ALBUMIN/GLOBULIN RATIO 0.8 (1.1-1.5); TOTAL PROTEIN 7.5 G/DL (6.4-8.2)
== END 2024-06-17 19:19 | disposition left against medical advice (07) ==
LOC: ER 17:48
DX: R42 Dizziness and giddiness (principal); R00.2 Palpitations; Z53.21 Procedure and treatment not carried out due to patient leaving prior to being seen by health care provider
CPT/HCPCS: 36415; 71045; 80053; 83880; 84484; 85025; 93005

== ENCOUNTER 2024-09-05 09:55 | Inpatient (IN) | payer MEDICAID ==
[~2024-09-05] VITALS: Ht 167.6 cm; Wt 64.8 kg
--- NOTE | 2024-09-05 10:23 | ELECTROCARDIOGRAPH REPORT ---
[facility] Test Date: 2024-09-05 Test Time: 10:21:32 Pat Name: TOMMY WHITE Department: [facility] Patient ID: [id number] Room: [place] [address] Gender: M Vp Client Services: : 1985 Requested By: PARVEZ FLORES Order Number: [id number] Reading MD: Dr. South Chaparro Measurements Intervals [place] Rate: 101 P: 39 SC: 133 QRS: 51 QRSD: 92 T: -77 QT: 340 QTc: 441 Interpretive Statements Sinus tachycardia Borderline repolarization abnormality Electronically Signed On 09-16-2024 21:42:[address] [place] Chaparro Please click the below link to view image of tracing.
--- NOTE | 2024-09-05 10:46 | RADIOLOGY REPORT ---
EXAM: XR Chest, 1 View CLINICAL INDICATION: aloc TECHNIQUE: Frontal view of the chest. COMPARISON: DI CHEST,SINGLE VIEW on DOS: 06/17/24, DI CHEST,SINGLE VIEW on DOS: 06/10/24, DI CHEST,SI NGLE VIEW on DOS: 04/05/24 FINDINGS: LUNGS AND PLEURAL SPACES: Unremarkable. No consolidation. No pneumothorax. HEART: Unremarkable. No cardiomegaly. MEDIASTINUM: Unremarkable. Normal mediastinal contour. BONES/JOINTS: Unremarkable. No acute fracture. OTHER FINDINGS: . IMPRESSION: No acute cardiopulmonary process.
[2024-09-05 10:48] LABS: BASOPHILS # (AUTO) 0.2 X10'3 (0-0.2); BASOPHILS % (AUTO) 1.2 % (0-1); EOSINOPHILS # (AUTO) 0.1 X10'3 (0-0.9); EOSINOPHILS % (AUTO) 0.5 % (0-6); HEMATOCRIT 33.6 % (42.0-52.0); HEMOGLOBIN 11.5 g/dl (14.0-17.9); LYMPHOCYTES # (AUTO) 2.7 X10'3 (1.1-4.8); LYMPHOCYTES % (AUTO) 19.6 % (21-51); MEAN CORPUSCULAR HEMOGLOBIN 34.6 PG (27.0-31.0); MEAN CORPUSCULAR HGB CONC 34.2 g/dL (33.0-36.5); MEAN PLATELET VOLUME 8.1 FL (7.4-10.4); MONOCYTES % (AUTO) 14.1 % (2-12); NEUTROPHILS % (AUTO) 64.6 % (42-75); PLATELET COUNT 287 X10'3 (140-440); RED BLOOD COUNT 3.32 X10'6 (4.70-6.10); RED CELL DISTRIBUTION WIDTH 22.6 % (11.5-14.5); WHITE BLOOD COUNT 13.9 X10'3 (4.5-11.0)
[2024-09-05] MEDS: lactulose 20gm/30ml cup PO ONE (10:50)
[2024-09-05] MEDS: normal saline 1000ML IV soln IVB ONE (10:50)
[2024-09-05 11:00] LABS: ALANINE AMINOTRANSFERASE 57 U/L (12-78); ALBUMIN 2.1 G/DL (3.4-5.0); ALKALINE PHOSPHATASE 436 IU/L (46-116); ANION GAP 17 (8-16); BLOOD UREA NITROGEN 7 MG/DL (7-18); CALCIUM 7.2 MG/DL (8.5-10.1); CHLORIDE 91 MMOL/L (99-107); ETHANOL 65 MG/DL (<10); LIPASE 30 U/L (16-77); SODIUM 132 MMOL/L (135-145); TOTAL CARBON DIOXIDE 24.2 MMOL/L (24-32); eCRCL 128 ML/MIN; eGFR > 90 ML/MIN
[2024-09-05 11:01] LABS: ALBUMIN/GLOBULIN RATIO 0.4 (1.1-1.5); ASPARTATE AMINO TRANSFERASE 346 U/L (10-37); GLUCOSE 93 MG/DL (70-104)
[2024-09-05 11:07] LABS: POTASSIUM 2.7 MMOL/L (3.5-5.1)
--- NOTE | 2024-09-05 11:09 | RADIOLOGY REPORT ---
CT CT HEAD INDICATION: aloc EXAM DATE: 09/05/2024 10:40 AM COMPARISON: CT CT STROKE ALERT on DOS: 04/05/24 RADIATION DOSE: CTDIvol: 58 mGy, DLP: 988 mGy*cm PROCEDURE: CT scans of the head were obtained from the vertex to the skull base. Sagittal and coronal reconstructions were provided. All CT scans at this medical facility are performed using dose modulation techniques as appropriate t o a performed exam including the following: Automated exposure control was utilized; adjustment of th e MA and/or KV according to patient size; and use of iterative reconstruction technique. FINDINGS: There is sulcal and ventricular prominence. The brainshows normal morphology and patterson-whi te matter differentiation, without intracranial hemorrhage, extra-axial fluid collection, mass effect or acute large vessel infarct. The ventricles are normal in size. The basal cisterns are patent. The skull and visible facial bones are intact. The paranasal sinuses, mastoid air cells and middle ear c avities are well-aerated. The soft tissues of the scalp are unremarkable. IMPRESSION: No acute intracranial abnormality.
[2024-09-05 11:16] LABS: NUCLEATED RED BLOOD CELLS 1 /100WBC (0-0); TOTAL CELLS COUNTED 100
[2024-09-05 11:17] LABS: ANISOCYTOSIS 3+; PLATELET ESTIMATE NORMAL; ROULEAUX 1+
[2024-09-05 11:19] LABS: POLYCHROMASIA 1+
[2024-09-05 11:20] LABS: TARGET CELLS 2+
--- NOTE | 2024-09-05 11:32 | Physician Documentation ---
History of Present Illness ~ General Chief Complaint: Multiple Medical Complaints Stated Complaint: VISION ISSUES Time Seen by MD: 10:15 OK to notify your PCP?: Yes Primary Medical Doctor: NO PMD Source: patient, family Mode of Arrival: POV, Wheelchair Exam Limitations: no limitations History of Present Illness Initial Comments Chief Complaint: Eyes have turned yellow, lethargy Caveat: None Independent Historians: Girlfriend History of Present Illness: Patient is a 38-year-old man brought in by girlfriend because she noticed him to becoming more ill over the last week and noticed his eyes were yellow 4-5 days ago. Patient drinks alcohol daily. Patient's last alcohol consumption was a pt at 5:00 a.m.. Review of systems: All systems were reviewed and are negative except for what is indicated in the history of present illness. Past Medical History: Alcoholism Past Surgical History: Social History: Daily alcohol use, denies other drug use, no tobacco use Medications: Reviewed as documented Nursing Notes Allergies: Reviewed as documented in Nursing Notes Medication Reconciliation Allergies: Coded Allergies: ketorolac (Verified Allergy, Severe, Hives, 04/05/24) hydroxyzine (Unverified Allergy, Mild, hives, 04/05/24) Scheduled Amlodipine Besylate (Amlodipine Besylate), 1 TAB PO DAILY Ciprofloxacin HCl (Cipro), 1 TAB PO DAILY Ibuprofen (Ibuprofen), 1 TAB PO Q8H Sertraline HCl (Sertraline HCl), 1 TAB PO DAILY, (Reported) Tamsulosin Hcl (Flomax), 1 CAP PO DAILY, (Reported) Scheduled PRN Sildenafil Citrate (Sildenafil Citrate), 1 TAB PO DAILY PRN for ERECTILE DYSFUNCTION, (Reported) Past Medical History Past Medical History: No Pertinent History Past Surgical History: noncontributory Alcohol Use: Heavy Drug Use: cocaine Lives with: S/O Lives In: Home Occupation: employed Review of Systems All Other Systems at this time: Reviewed and Negative ROS Patient denies any other acute symptoms other than above. All other systems are negative Physical Exam Physical Exam Vital Signs: RN Vital Signs have been reviewed: Yes, Temperature: 98.0, Heart Rate: 113, Respiratory Rate: 16, BP: 120/86, Pulse Oximetry: 99, Weight: 64.750 Oxygen Flow Rate: 0 Pulse Oximetry Reflects: adequate oxygenation Physical Exam General Appearance: MODERATE DISTRESS, ACUTELY AND CHRONICALLY ILL-APPEARING HEENT: Normal OP, moist oral mucosa, PERRL, EOMI, AND FACE APPEAR ATRAUMATIC, SCLERAL ICTERUS Neck: supple, normal ROM, trachea midline Pulmonary: No respiratory distress, CTA, BS equal Cardiac: RRR, no murmur, rub or gallop, GI: DISTENDED AND SOFT, nontender, normal bowel sounds, no guarding, no rebound Extremities: normal ROM, no swelling, non-tender Skin: intact, dry, warm, JAUNDICE Neuro: LETHARGIC ORIENTED X3, SPEECH IS SLOW BUT CLEAR, NO FOCAL MOTOR WEAKNESS BUT IS GENERALLY AND DIFFUSELY WEAK Psych: normal affect, good eye contact, no apparent hallucination, normal speech Progress Results/Orders Results/Orders Orders - PARVEZ FLORES MD Urinalysis, Cult If Indicated (09/05/24 10:07) Accucheck (09/05/24 10:15) Chest,Single View (09/05/24 10:15) Ct Head (09/05/24 10:15) Drug Screen, Urine (09/05/24 10:15) Monitor (09/05/24 10:15) Saline Lock (09/05/24 10:15) Potassium Cl 40meq/1/2ns 520ml ([place] (09/05/24 11:25) Page Hospitalist (09/05/24 11:36) Fill Out Med Reconciliation (09/05/24 11:36) Ct Abdomen Pelvis (09/05/24 11:40) Normal Saline 1000ml (Sodium Chloride 10 (09/05/24 11:40) Completed Orders - PARVEZ FLORES MD Cbc/Diff (09/05/24 10:07) Lipase (09/05/24 10:07) CMP (09/05/24 10:07) Ammonia (09/05/24 10:07) Electrocardiogram (09/05/24 10:15) Chest,Single View (09/05/24 10:15) Ct Head (09/05/24 10:15) Ethanol (09/05/24 10:15) Normal Saline 1000ml (Sodium Chloride 10 (09/05/24 10:15) Lactulose Oral Solution (Cephulac Oral S (09/05/24 10:15) Man Diff (09/05/24 10:23) Potassium Bicarb 20meq Eff Tab (Effer-K (09/05/24 11:25) Ct Abdomen Pelvis (09/05/24 11:40) Medications Received in ER Medications (Trade) Dose Ordered Sig/Katie Route PRN Reason Start Time Stop Time Status Last Admin Dose Admin (sodium chloride 1000ml IV soln) 500 ml ONCE ONCE IVB 09/05/24 10:15 09/05/24 10:17 DC 09/05/24 10:50 500 ML (cephulac oral solution) 20 gm ONCE ONCE PO 09/05/24 10:15 09/05/24 10:17 DC 09/05/24 10:50 20 GM (Effer-K 20 Meq Tablet Eff) 20 meq ONCE ONCE PO 09/05/24 11:25 09/05/24 11:29 DC 09/05/24 12:07 20 MEQ Potassium Chloride 520 ml @ 130 mls/hr ONCE ONCE IV 09/05/24 11:25 09/05/24 15:24 09/05/24 12:07 130 MLS/HR Sodium Chloride 1,000 ml @ 200 mls/hr Q5H ONCE IV 09/05/24 11:40 09/05/24 16:39 09/05/24 11:48 200 MLS/HR Vital Signs 09/05/24 09/05/24 09/05/24 09:57 10:15 11:41 Temp 98.0 Pulse 113 106 Resp 16 15 B/P (MAP) 120/86 106/81 (89) Pulse Ox 99 96 O2 Flow Rate 0 0 Laboratory Tests Test 09/05/24 10:00 09/05/24 10:23 09/05/24 10:27 Glucometer 147 H White Blood Count 13.9 H Red Blood Count 3.32 L Hemoglobin 11.5 L Hematocrit 33.6 L Mean Corpuscular Volume 101.0 H Mean Corpuscular Hemoglobin 34.6 H Mean Corpuscular Hemoglobin Concent 34.2 Red Cell Distribution Width 22.6 H Platelet Count 287 Mean Platelet Volume 8.1 Neutrophils (%) (Auto) 64.6 Lymphocytes (%) (Auto) 19.6 L Monocytes (%) (Auto) 14.1 H Eosinophils (%) (Auto) 0.5 Basophils (%) (Auto) 1.2 H Neutrophils # (Auto) 9.0 H Lymphocytes # (Auto) 2.7 Monocytes # (Auto) 2.0 H Eosinophils # (Auto) 0.1 Basophils # (Auto) 0.2 CBC Comment Differential Total Cells Counted 100 Neutrophils % (Manual) 62.0 Band Neutrophils % 1.0 Lymphocytes % (Manual) 18.0 L Monocytes % (Manual) 13.0 H Eosinophils % (Manual) 2.0 Basophils % (Manual) 1.0 Metamyelocytes % 1.0 H Nucleated Red Blood Cells 1 H Reactive Lymphocytes 2.0 H Platelet Estimate Normal Red Blood Cell Morphology Perf Polychromasia 1+ Basophilic Stippling Anisocytosis 3+ Macrocytosis 1+ Target Cells 2+ Rouleau 1+ Sodium Level 132 L Potassium Level 2.7 *L Chloride Level 91 L Carbon Dioxide Level 24.2 Anion Gap 17 H Blood Urea Nitrogen 7 Creatinine 0.70 Estimated GFR/1.73 m2 > 90 BUN/Creatinine Ratio 10.0 Glucose Level 93 Calcium Level 7.2 L Total Bilirubin 15.0 H Aspartate Amino Transf (AST/SGOT) 346 H Alanine Aminotransferase (ALT/SGPT) 57 Alkaline Phosphatase 436 H Ammonia 95 H Total Protein 7.0 Albumin 2.1 L Globulin 4.9 H Albumin/Globulin Ratio 0.4 L Lipase 30 Chemistry Comments Ethyl Alcohol Level 65 H Prothrombin Time 15.5 H INR International Normalized Ratio 1.6 Coagulation Comments Medical Decision Making Additional info obtained from: old records, family Findings Differential diagnosis includes but is not limited to: Hepatic encephalopathy, hemorrhagic stroke, subdural, sepsis, urinary tract infection, subacute bacterial peritonitis, hepatitis, gastritis, GI bleed EKG independent interpretation: Performed at 10:21 a.m.. Sinus tachycardia, heart rate 101, normal axis, nonspecific ST segments Chest x-ray, single view, indication: Altered mental status Independent interpretation: Lungs are clear, normal mediastinum, normal cardiac silhouette, normal soft tissues and bones. No acute cardiopulmonary process Head CT without IV contrast, indication: Altered mental status Impression: No acute intracranial abnormality Laboratory data independent interpretation: CBC: Leukocytosis of 13.9. Mild anemia with a hemoglobin of 11.5 and hematocrit 33.6, platelet count is normal at 287 CMP: Sodium is mildly low at 132, potassium is low at 2.7, bicarb is normal at 24, anion gap of 17, BUN normal at seven, creatinine normal at 0.7, serum glucose is normal at 93 LFTs: Total bilirubin elevated at 15, AST elevated at 346, ALT normal at 57, alk-phos elevated at 436 Toxicology: Alcohol 65 Ammonia level: 95 Coags: PT 15.5, INR 1.6 which is elevated. Emergency department course/medical decision-making: Patient is a 38-year-old man who presents with lethargy and jaundice. Patient is a heavy alcohol drinker and presents with hepatic encephalopathy. Patient has a mild leukocytosis with no infection source identified. Chest x-ray is clear. Head CT is negative acute. Patient is afebrile and hemodynamically sta ble. Patient is mildly hypokalemic. Oral and IV potassium has been ordered. Lactulose has also been ordered. Patient will require admission. Patient's abdominal exam is remarkable for some mild ascites but no significant tenderness. Do not suspect subacute bacterial peritonitis. Patient will require admission. Hospitalist/resident in his aware. Departure Time of Disposition: 11:29 Admission Level of Care: Med/Surg with Tele Impression: Primary Impression: Hepatic encephalopathy Additional Impressions: Hypokalemia Leukocytosis Qualified Codes: D72.829 - Elevated white blood cell count, unspecified Alcoholism Condition: Guarded Education Educated: Patient, Family Educated regarding: diagnosis, treatment Signature Scribe Signature: No scribe Attestation: No scribe PARVEZ FLORES MD September 05, 2024 11:32
[2024-09-05] MEDS: normal saline 1000ml 1,000 ML IV ONE (11:48)
[2024-09-05] MEDS ORDERED: acetaminophen 325mg tablet PO PRN (12:05)
[2024-09-05] MEDS ORDERED: CefTRIAXone/D5W-Rocephin 1gm 50 ML IV ONE (12:05)
[2024-09-05] MEDS ORDERED: mag hydrox/Alum hydrox/simeth 30ml oral suspension PO PRN (12:05)
[2024-09-05] MEDS ORDERED: ondansetron/PF 4mg/2ml inj IV PRN (12:05)
[2024-09-05] MEDS: POTASSIUM BICARB 20meq eff tab 20 MEQ TABLET.EFF PO ONE (12:07)
[2024-09-05] MEDS: potassium Cl 40MEQ/1/2NS 520ml 520 ML IV ONE (12:07)
[2024-09-05 12:32] LABS: INR 1.6 INR; PROTHROMBIN TIME 15.5 SECONDS (9.0-12.0)
--- NOTE | 2024-09-05 12:42 | RADIOLOGY REPORT ---
EXAM: CT Abdomen and Pelvis Without Intravenous Contrast CLINICAL INDICATION: Abdominal Pain TECHNIQUE: Axial computed tomography images of the abdomen and pelvis without intravenous contrast. This CT exam was performed using one or more of the following dose reduction techniques: automated exposure control, adjustment of the mA and/or kV according to patient size, and/or use of iterative r econstruction technique. CONTRAST: COMPARISON: CT CT ABDOMEN PELVIS on DOS: 11/06/23, CT CHEST ABDOMEN PELVIS on DOS: 06/27/22, CT ABDOME N PELVIS on DOS: 06/10/21, CT ABDOMEN PELVIS on DOS: 06/07/21 FINDINGS: LUNG BASES: Unremarkable. No mass. No consolidation. ABDOMEN: LIVER: Hepatomegaly with fatty infiltration. GALLBLADDER AND BILE DUCTS: Distended gallbladder with possible mild fat stranding. Correlation fo r acute cholecystitis recommended. If indicated, further evaluation with ultrasound would be benefici al. No ductal dilation. PANCREAS: Unremarkable. No ductal dilation. SPLEEN: Unremarkable. No splenomegaly. ADRENALS: Unremarkable. No mass. KIDNEYS AND URETERS: Unremarkable. No stones within either kidney. No hydronephrosis. STOMACH AND BOWEL: Fecal retention in the colon consistent with constipation. No obstruction. No mucosal thickening. PELVIS: APPENDIX: No findings to suggest acute appendicitis. BLADDER: Unremarkable. No stones. REPRODUCTIVE: Unremarkable as visualized. ABDOMEN and PELVIS: INTRAPERITONEAL SPACE: Small ascites. No free air. BONES/JOINTS: No acute fracture. No dislocation. SOFT TISSUES: Umbilical hernia containing fat. VASCULATURE: Unremarkable. No abdominal aortic aneurysm. LYMPH NODES: Unremarkable. No enlarged lymph nodes. OTHER FINDINGS: . . . . IMPRESSION: 1. Distended gallbladder with possible mild fat stranding. Correlation for acute cholecystitis clarence mmended. If indicated, further evaluation with ultrasound would be beneficial. 2. Hepatomegaly with fatty infiltration. 3. Fecal retention in the colon consistent with constipation. 4. No obstructive uropathy. 5. Umbilical hernia containing fat.
[2024-09-05] MEDS ORDERED: HYDROmorphone inj. 0.5 MG/0.5 ML DISP.SYRIN IV PRN (13:40)
[2024-09-05] MEDS: lactulose 20gm/30ml cup PO SCH (14:33)
[2024-09-05] MEDS ORDERED: metroNIDAZOLE-Flagyl 500mg/NS 100 ML IV SCH (16:00)
[2024-09-05] MEDS: heparin, porcine 5000 units/ml vial SQ SCH (16:00)
[2024-09-05] MEDS: diazepam inj 5 MG/ML inj. IV PRN (16:55)
[2024-09-05] MEDS: piperacillin/tazo 4.5gm/100ml 100 ML IV SCH (17:00)
[2024-09-05 17:18] VITALS: RESP 18
[2024-09-05 17:24] VITALS: BP 143/105; PULSE 97; RESP 16; O2SAT 95
[2024-09-05 18:00] VITALS: BP 143/105; PULSE 96; RESP 15; TEMP 97.5; O2SAT 95
[2024-09-05] MEDS: LORazepam 1 MG tablet PO PRN (19:50)
[2024-09-05] MEDS: docusate sod 100mg capsule PO SCH (19:50)
[2024-09-05] MEDS: potassium Cl 40MEQ/1/2NS 520ml 520 ML IV PRN (19:51)
[2024-09-05] MEDS: K and/or MAG REPLACEMENT MC SCH (19:57)
--- NOTE | 2024-09-05 21:00 | HISTORY AND PHYSICAL ---
History & Physical Providers to CC ~ History of Present Illness Reason for Admit\\Complaint: Hepatic encephalopathy\\blurry vision History of Present Illness This is a 38-year-old male who was brought in by his girlfriend this morning the patient has been getting more weak and has been jaundice. The patient is a heavy alcoholic though he has cut back to a pt today used to drink a 5th of vodka a day last time the patient drank any alcohol was at 5:00 a.m.. The patient states that his vision was blurry this morning however it is improving- pertinent findings serum ammonia level of 95 serum potassium 2.7 bilirubin of 15 and a INR of 1.6, CT scan of the abdomen and pelvis demonstrated distended gallbladder possible mild fat stranding likely secondary to cholecystitis. The patient is admitted to the ortho floor on a phototypesetting equipment monitor with the alcohol withdrawal protocol in place Allergies: Coded Allergies: ketorolac (Verified Allergy, Severe, Hives, 04/05/24) hydroxyzine (Unverified Allergy, Mild, hives, 04/05/24) heparin (Verified Adverse Reaction, Intermediate, 09/05/24) "makes my head feel weird" Home Medications Home Medications Active Amlodipine Besylate 5 Mg Tablet 1 Tab PO DAILY 30 Days Ibuprofen 800 Mg Tablet 1 Tab PO Q8H 10 Days Cipro (Ciprofloxacin HCl) 250 Mg Tablet 1 Tab PO DAILY 30 Days Reported Sertraline HCl 50 Mg Tablet 1 Tab PO DAILY Sildenafil Citrate 100 Mg Tablet 1 Tab PO DAILY PRN Flomax (Tamsulosin HCl) 0.4 Mg Cap.sr.24h 1 Cap PO DAILY Past Medical History Past Medical History Alcoholism Past Surgical History Surgical History Comment Hip surgery, appendectomy, right inguinal hernia repair Family History Family History: Patient reports no known family medical history. Past Social History Social History Comment Quit smoking cigarettes 1/2 months ago, drinks one pt of vodka daily previously drank a 5th of vodka daily, previous cocaine use clean. Full code status. ROS ROS Except for positives in the HPI the rest of the 14 point review systems is negative Exam Vitals: Vital Signs Date Time Temp Pulse Resp B/P (MAP) Pulse Ox O2 Delivery O2 Flow Rate FiO2 09/05/24 18:30 85 09/05/24 17:24 16 143/105 (118) 95 09/05/24 17:18 Room Air 09/05/24 11:41 0 09/05/24 09:57 98.0 General: Gen. No acute distress alert and oriented 4 HEENT: Significant scleral icterus is present Lungs clear to ascultation bilaterally, no wheezes rales or rhonchi appreciated Heart normal sinus rhythm no murmurs rubs or clicks noted Abdomen distended, significant right upper quadrant tenderness, bowel sounds are normoactive Lower extremities no clubbing cyanosis, nor edema appreciated bilaterally Diagnostic Data Last Recorded Lab Results: 09/05/24 1023 09/05/24 1023 Diagnostic Data: Laboratory Tests Test 09/05/24 10:27 Prothrombin Time 15.5 SECONDS (9.0-12.0) H INR International Normalized Ratio 1.6 INR Coagulation Comments Advance Care Planning Advanced Care plannin - 30 Minutes Problems: (1) Hepatic encephalopathy Status: Acute Additional Plan # hepatic encephalopathy/ metabolic encephalopathy- Daily ammonia levels Lactulose #alcoholic hepatitis Strongly advise the patient to quit drinking alcohol MELD score of 22- which gives the patient has a three-month mortality rate of 19.6% # likely cholecystitis- Abdominal ultrasounds ordered IV Zosyn # hypokalemia On potassium replacement protocol # DVT prophylaxis SQ heparin I spent a total of 17 minutes on reviewing various resuscitative measures/ ACP with the patient at the time of admission. The patient has decided on full code status. Date of Service: September 05, 2024 Billing Provider: ROHAN GEORGE DO Common Visit Codes: [id number] INP/OBS CARE (HIGH) Secondary Visit Codes: [id number] CARE PLAN 30 MINUTES ROHAN GEORGE DO September 05, 2024 21:00
[2024-09-05 22:00] VITALS: BP 101/66; PULSE 95; RESP 16; TEMP 98.8; O2SAT 97
[2024-09-05] MEDS: normal saline 1000ml 1,000 ML IV SCH (23:35)
[2024-09-06 02:57] LABS: BILIRUBIN,URINE LARGE (Neg); CLARITY,URINE CLEAR (Clear); COLOR,URINE YELLOW (Yellow); GLUCOSE, URINE NEGATIVE (Neg); KETONES,URINE NEGATIVE (Neg); LEUKOCYTE ESTERASE ,URINE NEGATIVE (Neg); NITRITES, URINE NEGATIVE (Neg); OCCULT BLOOD,URINE TRACE-INTACT (Neg); PROTEIN,URINE NEGATIVE (Neg); UROBILINOGEN,URINE 0.2 E.U/dL (0.2-1.0)
[2024-09-06 03:02] LABS: UA COLLECTION TYPE CLN CATCH MIDSTREAM
[2024-09-06 03:05] LABS: BACTERIA,URINE NONE SEEN /HPF (Neg); RBC,URINE 0-2 /HPF (0-2); SQUAMOUS EPITHELIAL CELL,UR NONE SEEN /LPF (FEW); WBC,URINE NONE SEEN /HPF (0-4)
[2024-09-06 03:19] LABS: URINE AMPHETAMINE SCREEN NEGATIVE (Neg); URINE BARBITUATE SCREEN NEGATIVE (Neg); URINE BENZODIAZEPINES SCREEN NEGATIVE (Neg); URINE CANNABINOID SCREEN NEGATIVE (Neg); URINE COCAINE SCREEN NEGATIVE (Neg); URINE METHADONE SCREEN NEGATIVE (Neg); URINE OPIATE SCREEN NEGATIVE (Neg); URINE PHENCYCLIDINE SCREEN NEGATIVE (Neg)
[2024-09-06 06:00] VITALS: BP 134/93; PULSE 97; RESP 18; TEMP 97.6; O2SAT 97
[2024-09-06 06:30] LABS: BASOPHILS # (AUTO) 0.1 X10'3 (0-0.2); BASOPHILS % (AUTO) 0.7 % (0-1); EOSINOPHILS # (AUTO) 0.1 X10'3 (0-0.9); EOSINOPHILS % (AUTO) 0.4 % (0-6); HEMATOCRIT 32.1 % (42.0-52.0); HEMOGLOBIN 10.9 g/dl (14.0-17.9); LYMPHOCYTES # (AUTO) 1.2 X10'3 (1.1-4.8); LYMPHOCYTES % (AUTO) 10.3 % (21-51); MEAN CORPUSCULAR HEMOGLOBIN 34.5 PG (27.0-31.0); MEAN CORPUSCULAR HGB CONC 34.1 g/dL (33.0-36.5); MEAN CORPUSCULAR VOLUME 101.3 FL (78-98); MONOCYTES # (AUTO) 1.2 X10'3 (0-0.9); MONOCYTES % (AUTO) 9.6 % (2-12); NEUTROPHILS # (AUTO) 9.6 X10'3 (1.8-7.7); PLATELET COUNT 296 X10'3 (140-440); RED BLOOD COUNT 3.17 X10'6 (4.70-6.10); WHITE BLOOD COUNT 12.1 X10'3 (4.5-11.0)
[2024-09-06 06:49] LABS: ALANINE AMINOTRANSFERASE 50 U/L (12-78); ALBUMIN 1.9 G/DL (3.4-5.0); ALKALINE PHOSPHATASE 363 IU/L (46-116); ANION GAP 13 (8-16); BILIRUBIN,TOTAL 15.1 MG/DL (0.1-1.0); BLOOD UREA NITROGEN 5 MG/DL (7-18); BUN/CREATININE RATIO 7.5 (10.0-20.0); CHLORIDE 101 MMOL/L (99-107); CREATININE 0.67 MG/DL (0.60-1.10); LIPASE 28 U/L (16-77); MAGNESIUM 1.2 MG/DL (1.5-2.4); SODIUM 141 MMOL/L (135-145); TOTAL CARBON DIOXIDE 27.5 MMOL/L (24-32); eCRCL 134 ML/MIN; eGFR > 90 ML/MIN
[2024-09-06 06:55] LABS: INR 1.7 INR; PROTHROMBIN TIME 16.2 SECONDS (9.0-12.0)
[2024-09-06 06:57] LABS: ALBUMIN/GLOBULIN RATIO 0.4 (1.1-1.5); ASPARTATE AMINO TRANSFERASE 298 U/L (10-37); GLUCOSE 78 MG/DL (70-104); PHOSPHORUS 1.4 MG/DL (2.3-4.5); POTASSIUM 3.2 MMOL/L (3.5-5.1); TOTAL PROTEIN 6.2 G/DL (6.4-8.2)
[2024-09-06] MEDS: amLODIPine 5mg tablet PO SCH (07:36)
[2024-09-06] MEDS: sertraline 50mg tablet PO SCH (07:36)
[2024-09-06] MEDS: tamsulosin 0.4mg capsule PO SCH (07:36)
[2024-09-06] MEDS: multivitamins, therapeutics tablet PO SCH (07:37)
[2024-09-06] MEDS: folic acid 1mg/0.2ml inj IV SCH (07:37)
[2024-09-06 08:00] VITALS: RESP 16; O2SAT 98
[2024-09-06] MEDS ORDERED: CefTRIAXone/D5W-Rocephin 1gm 50 ML IV SCH (08:00)
[2024-09-06] MEDS: sodium phosphate inj. 30 MMOL in dextrose 5%-water 250 ML IV ONE (08:15)
[2024-09-06] MEDS: magnesium Cl slow-release 64mg tablet PO PRN (08:32)
[2024-09-06] MEDS: potassium Cl 20 mEq SR tablet PO PRN (08:32)
--- NOTE | 2024-09-06 08:50 | RADIOLOGY REPORT ---
EXAM: US ULTRASOUND OF ABDOMEN HISTORY: Eval for cholecystitis COMPARISON: None TECHNIQUE: Right upper quadrant ultrasound was performed. FINDINGS: Sludge and gallstones are identified in the gallbladder, with wall thickening measuring 3-5 mm. The patient was not tender to transducer pressure over the gallbladder. No intrahepatic biliary ductal dilatation or liver mass. The liver is echogenic with nodular margins. The liver measures 18 c m longitudinal. There is moderate volume perihepatic free fluid. There is hepatopetal portal venous c olor Doppler flow. The common duct measures 7.1 mm in diameter. The pancreas, IVC, and abdominal aort a are not well visualized sonographically, possibly due to overlying bowel gas. The right kidney pedro ures 9.5 cm in length and is normal in appearance. IMPRESSION: 1. Hepatomegaly and nodular hepatic margins suggestive of cirrhosis. The liver may be diffusely fatt y density. 2. Moderate volume upper abdominal ascites. 3. Cholelithiasis with gallbladder wall thickening, which may be due to acute cholecystitis or relate d to hepatic cirrhosis or ascites.
[2024-09-06 10:00] VITALS: BP 103/73; PULSE 104; RESP 15; TEMP 97.1; O2SAT 92
[2024-09-06] MEDS ORDERED: diazepam inj 5 MG/ML inj. IV PRN (17:10)
--- NOTE | 2024-09-06 17:12 | PROGRESS NOTE ---
Daily Progress Note Providers to CC ~ Antibiotic Timeout Antibiotic Ordered?: Yes Subjective The patient is more confused today and significantly tremulous I am going to add scheduled Librium 100 mg q.6 hours and increase the PRN dose of diazepam IV to 10 mg every 4 hours as needed and the PRN lorazepam dose to 2 mg every 1 hour as needed. The patient had six loose stools today I am backing down on his lactulose to every 8 hours. Objective Vital Signs Date Time Temp Pulse Resp B/P (MAP) Pulse Ox O2 Delivery O2 Flow Rate FiO2 09/06/24 10:00 97.1 104 15 103/73 (83) 92 Room Air 09/05/24 11:41 0 Result Diagram: 09/06/2441 09/06/24 0541 Gen. Significant generalized tremors, confused. HEENT significant scleral icterus appreciated Lungs clear to ascultation bilaterally, no wheezes rales or rhonchi appreciated Heart normal sinus rhythm no murmurs rubs or clicks noted Abdomen soft nontender bowel sounds are normoactive Lower extremities no clubbing cyanosis, nor edema appreciated bilaterally Coagulation Studies Laboratory Tests Test 09/06/24 05:41 Prothrombin Time 16.2 SECONDS (9.0-12.0) H INR International Normalized Ratio 1.7 INR Coagulation Comments Problem\Assessment\Plan Problems/Diagnosis: (1) Hepatic encephalopathy # cristel DTs PRN IV diazepam PRN p.o. lorazepam 09/06 Added scheduled Librium 100 mg q.6 hours # hepatic encephalopathy/ metabolic encephalopathy- Daily ammonia levels Lactulose 09/06 ammonia level is downtrending- patient had six loose bowel movements decrease lactulose to every 8 hours #alcoholic hepatitis Strongly advise the patient to quit drinking alcohol MELD score of 22- which gives the patient has a three-month mortality rate of 19.6% #cholecystitis- Abdominal ultrasound is consistent with a acute cholecystitis IV Zosyn Note that the patient is not a candidate for a cholecystectomy due to his cirrhosis of the liver seen on ultrasound # hypokalemia On potassium replacement protocol # hypophosphatemia- Continue monitor daily phosphorus levels IV phosphorus was replaced Date of Service: September 06, 2024 Billing Provider: ROHAN GEORGE DO Common Visit Codes: [id number] INP/OBS CARE(HIGH) ROHAN GEORGE DO September 06, 2024 17:12
[2024-09-06 20:00] VITALS: RESP 14; O2SAT 93
[2024-09-06] MEDS: LORazepam 1 MG tablet PO PRN (20:17)
[2024-09-06] MEDS: chlordiazePOXIDE 25mg capsule PO SCH (20:22)
[2024-09-06] MEDS: lactulose 20gm/30ml cup PO SCH (20:22)
[2024-09-06 22:00] VITALS: BP 97/63; PULSE 88; RESP 17; TEMP 96.9; O2SAT 92
[2024-09-07 06:00] VITALS: BP 114/80; PULSE 103; RESP 16; TEMP 97.4; O2SAT 96
[2024-09-07 06:05] LABS: BASOPHILS # (AUTO) 0.1 X10'3 (0-0.2); BASOPHILS % (AUTO) 0.5 % (0-1); EOSINOPHILS # (AUTO) 0.1 X10'3 (0-0.9); EOSINOPHILS % (AUTO) 0.5 % (0-6); HEMOGLOBIN 9.7 g/dl (14.0-17.9); LYMPHOCYTES # (AUTO) 0.9 X10'3 (1.1-4.8); LYMPHOCYTES % (AUTO) 7.5 % (21-51); MEAN CORPUSCULAR HEMOGLOBIN 34.3 PG (27.0-31.0); MEAN CORPUSCULAR HGB CONC 33.5 g/dL (33.0-36.5); MEAN CORPUSCULAR VOLUME 102.2 FL (78-98); MEAN PLATELET VOLUME 8.1 FL (7.4-10.4); MONOCYTES # (AUTO) 1.2 X10'3 (0-0.9); MONOCYTES % (AUTO) 10.2 % (2-12); NEUTROPHILS # (AUTO) 9.8 X10'3 (1.8-7.7); NEUTROPHILS % (AUTO) 81.3 % (42-75); PLATELET COUNT 275 X10'3 (140-440); RED BLOOD COUNT 2.84 X10'6 (4.70-6.10); RED CELL DISTRIBUTION WIDTH 23.2 % (11.5-14.5); WHITE BLOOD COUNT 12.1 X10'3 (4.5-11.0)
[2024-09-07 06:11] LABS: INR 1.8 INR; PROTHROMBIN TIME 17.3 SECONDS (9.0-12.0)
[2024-09-07 06:31] LABS: ALANINE AMINOTRANSFERASE 44 U/L (12-78); ALBUMIN 1.5 G/DL (3.4-5.0); ALKALINE PHOSPHATASE 261 IU/L (46-116); ANION GAP 11 (8-16); ASPARTATE AMINO TRANSFERASE 237 U/L (10-37); BILIRUBIN,TOTAL 13.3 MG/DL (0.1-1.0); BLOOD UREA NITROGEN 6 MG/DL (7-18); BUN/CREATININE RATIO 7.5 (10.0-20.0); CALCIUM 6.8 MG/DL (8.5-10.1); CHLORIDE 104 MMOL/L (99-107); GLUCOSE 94 MG/DL (70-104); LIPASE 24 U/L (16-77); MAGNESIUM 1.2 MG/DL (1.5-2.4); SODIUM 139 MMOL/L (135-145); TOTAL CARBON DIOXIDE 23.6 MMOL/L (24-32); eCRCL 112 ML/MIN; eGFR > 90 ML/MIN
[2024-09-07 07:22] LABS: ALBUMIN/GLOBULIN RATIO 0.4 (1.1-1.5); PHOSPHORUS 3.1 MG/DL (2.3-4.5); TOTAL PROTEIN 5.4 G/DL (6.4-8.2)
[2024-09-07 07:33] LABS: POTASSIUM 2.8 MMOL/L (3.5-5.1)
[2024-09-07 08:00] VITALS: RESP 17; O2SAT 94
[2024-09-07] MEDS ORDERED: lactulose 20gm/30ml cup PO SCH (08:00)
[2024-09-07] MEDS: potassium Cl 20 mEq SR tablet PO PRN (08:32)
[2024-09-07 10:00] VITALS: BP 92/55; PULSE 92; RESP 15; TEMP 97.6; O2SAT 98
[2024-09-07] MEDS: magnesium sulf-water 2g/50mL 50 ML IV PRN (12:47)
[2024-09-07] MEDS: magnesium sulf-water 4G/100mL 100 ML IV PRN (15:22)
[2024-09-07 18:00] VITALS: BP 114/78; PULSE 92; RESP 16; TEMP 98.3; O2SAT 96
--- NOTE | 2024-09-07 18:39 | PROGRESS NOTE ---
Daily Progress Note Providers to CC ~ Antibiotic Timeout Antibiotic Ordered?: Yes Subjective The patient was asleep today I could not awaken him- his serum ammonia level is downtrending in his having significant less loose stools than yesterday. There were no complaints voiced by nursing staff Objective Vital Signs Date Time Temp Pulse Resp B/P (MAP) Pulse Ox O2 Delivery O2 Flow Rate FiO2 09/07/24 10:00 97.6 92 15 92/55 (67) 98 Room Air 09/06/24 20:00 0.0 Result Diagram: 09/07/24 0530 09/07/24 0530 Gen. Significant generalized tremors, confused. HEENT significant scleral icterus appreciated Lungs clear to ascultation bilaterally, no wheezes rales or rhonchi appreciated Heart normal sinus rhythm no murmurs rubs or clicks noted Abdomen soft nontender bowel sounds are normoactive Lower extremities no clubbing cyanosis, nor edema appreciated bilaterally Coagulation Studies Laboratory Tests Test 09/07/24 05:30 Prothrombin Time 17.3 SECONDS (9.0-12.0) H INR International Normalized Ratio 1.8 INR Coagulation Comments Problem\Assessment\Plan Problems/Diagnosis: (1) Hepatic encephalopathy # cristel DTs PRN IV diazepam PRN p.o. lorazepam 09/06 Added scheduled Librium 100 mg q.6 hours 09/07 the patient was sleeping # hepatic encephalopathy/ metabolic encephalopathy- Daily ammonia levels Lactulose 09/06 ammonia level is downtrending- patient had six loose bowel movements decrease lactulose to every 8 hours 09/07 serum ammonia continues to downtrend #alcoholic hepatitis Strongly advise the patient to quit drinking alcohol MELD score of 22- which gives the patient has a three-month mortality rate of 19.6% #cholecystitis- Abdominal ultrasound is consistent with a acute cholecystitis IV Zosyn Note that the patient is not a candidate for a cholecystectomy due to his cirrhosis of the liver seen on ultrasound # hypokalemia On potassium replacement protocol # hypophosphatemia- Continue monitor daily phosphorus levels IV phosphorus was replaced 09/07 serum phosphorus has normalized. Date of Service: September 07, 2024 Billing Provider: ROHAN GEORGE DO Common Visit Codes: [id number] INP/OBS CARE(HIGH) ROHAN GEORGE DO September 07, 2024 18:39
[2024-09-07 22:00] VITALS: BP 98/68; PULSE 72; RESP 18; TEMP 96.9; O2SAT 98
[2024-09-08 06:00] VITALS: BP 94/65; PULSE 72; RESP 18; TEMP 96.4; O2SAT 97
[2024-09-08 06:08] LABS: BASOPHILS # (AUTO) 0.1 X10'3 (0-0.2); BASOPHILS % (AUTO) 0.8 % (0-1); EOSINOPHILS # (AUTO) 0.1 X10'3 (0-0.9); EOSINOPHILS % (AUTO) 0.7 % (0-6); HEMATOCRIT 28.9 % (42.0-52.0); HEMOGLOBIN 9.7 g/dl (14.0-17.9); LYMPHOCYTES # (AUTO) 1.1 X10'3 (1.1-4.8); LYMPHOCYTES % (AUTO) 8.6 % (21-51); MEAN CORPUSCULAR HEMOGLOBIN 34.3 PG (27.0-31.0); MEAN CORPUSCULAR HGB CONC 33.6 g/dL (33.0-36.5); MEAN CORPUSCULAR VOLUME 102.2 FL (78-98); MEAN PLATELET VOLUME 7.7 FL (7.4-10.4); MONOCYTES # (AUTO) 1.3 X10'3 (0-0.9); MONOCYTES % (AUTO) 10.1 % (2-12); NEUTROPHILS # (AUTO) 10.5 X10'3 (1.8-7.7); NEUTROPHILS % (AUTO) 79.8 % (42-75); PLATELET COUNT 294 X10'3 (140-440); RED BLOOD COUNT 2.83 X10'6 (4.70-6.10); RED CELL DISTRIBUTION WIDTH 23.5 % (11.5-14.5); WHITE BLOOD COUNT 13.1 X10'3 (4.5-11.0)
[2024-09-08 06:15] LABS: INR 1.7 INR; PROTHROMBIN TIME 16.2 SECONDS (9.0-12.0)
[2024-09-08 06:29] LABS: ALANINE AMINOTRANSFERASE 44 U/L (12-78); ALBUMIN 1.4 G/DL (3.4-5.0); ALKALINE PHOSPHATASE 253 IU/L (46-116); ANION GAP 9 (8-16); ASPARTATE AMINO TRANSFERASE 234 U/L (10-37); BILIRUBIN,TOTAL 11.8 MG/DL (0.1-1.0); BLOOD UREA NITROGEN 7 MG/DL (7-18); BUN/CREATININE RATIO 9.2 (10.0-20.0); CALCIUM 7.1 MG/DL (8.5-10.1); CHLORIDE 110 MMOL/L (99-107); CREATININE 0.76 MG/DL (0.60-1.10); GLUCOSE 101 MG/DL (70-104); LIPASE 22 U/L (16-77); MAGNESIUM 2.1 MG/DL (1.5-2.4); SODIUM 142 MMOL/L (135-145); TOTAL CARBON DIOXIDE 23.2 MMOL/L (24-32); eCRCL 118 ML/MIN; eGFR > 90 ML/MIN
[2024-09-08 06:33] LABS: ALBUMIN/GLOBULIN RATIO 0.4 (1.1-1.5); PHOSPHORUS 2.5 MG/DL (2.3-4.5); POTASSIUM 3.6 MMOL/L (3.5-5.1); TOTAL PROTEIN 5.3 G/DL (6.4-8.2)
[2024-09-08 07:48] LABS: ANISOCYTOSIS 3+; PLATELET ESTIMATE NORMAL; TARGET CELLS FEW
[2024-09-08 10:00] VITALS: BP 96/66; PULSE 67; RESP 15; TEMP 97; O2SAT 99
[2024-09-08 11:15] LABS: HBSAG SCREEN Negative (Negative); HEP B CORE AB, IGM Negative (Negative); HEP B CORE AB, TOT Negative (Negative)
[2024-09-08] MEDS: LORazepam 1 MG tablet PO PRN ×2 (16:49→16:50)
[2024-09-08 18:00] VITALS: BP 110/73; PULSE 81; RESP 12; TEMP 97.2; O2SAT 94
[2024-09-08] MEDS: lactulose 20gm/30ml cup PO SCH (18:36)
--- NOTE | 2024-09-08 20:38 | PROGRESS NOTE ---
Daily Progress Note Providers to CC ~ Antibiotic Timeout Antibiotic Ordered?: Yes Subjective The patient is significantly lethargic today he did work with physical therapy a little bit- I have stopped scheduled Librium he continues to have diarrhea and I have back down on scheduled lactulose to b.i.d. dosing. Objective Vital Signs Date Time Temp Pulse Resp B/P (MAP) Pulse Ox O2 Delivery O2 Flow Rate FiO2 09/08/24 10:00 97.0 67 15 96/66 (76) 99 Nasal Cannula 0.5 Result Diagram: 09/08/2451609/08/24516 Gen. Significant generalized tremors, confused. HEENT significant scleral icterus appreciated Lungs clear to ascultation bilaterally, no wheezes rales or rhonchi appreciated Heart normal sinus rhythm no murmurs rubs or clicks noted Abdomen soft nontender bowel sounds are normoactive Lower extremities no clubbing cyanosis, nor edema appreciated bilaterally Coagulation Studies Laboratory Tests Test 09/08/24 05:17 Prothrombin Time 16.2 SECONDS (9.0-12.0) H INR International Normalized Ratio 1.7 INR Coagulation Comments Problem\Assessment\Plan Problems/Diagnosis: (1) Hepatic encephalopathy # cristel DTs PRN IV diazepam PRN p.o. lorazepam 09/06 Added scheduled Librium 100 mg q.6 hours 09/07 the patient was sleeping 09/08 DTs have resolved discontinue scheduled Librium, and PRN p.o. lorazepam and PRN diazepam is continued # hepatic encephalopathy/ metabolic encephalopathy- Daily ammonia levels Lactulose 09/06 ammonia level is downtrending- patient had six loose bowel movements decrease lactulose to every 8 hours 09/07 serum ammonia continues to downtrend 09/08 serum ammonia has normalized- with continuing significant diarrhea I have back down on the patient's lactulose to b.i.d. dosing #alcoholic hepatitis/ cirrhosis Strongly advise the patient to quit drinking alcohol MELD score of 22- which gives the patient has a three-month mortality rate of 19.6% #cholecystitis- Abdominal ultrasound is consistent with a acute cholecystitis IV Zosyn Note that the patient is not a candidate for a cholecystectomy due to his cirrhosis of the liver seen on ultrasound # hypokalemia On potassium replacement protocol # hypophosphatemia- Continue monitor daily phosphorus levels IV phosphorus was replaced 09/07 serum phosphorus has normalized. Date of Service: September 08, 2024 Billing Provider: ROHAN GEORGE DO Common Visit Codes: [id number] INP/OBS CARE(HIGH) ROHAN GEORGE DO September 08, 2024 20:37
[2024-09-08 22:00] VITALS: BP 105/76; PULSE 79; RESP 16; TEMP 97.3; O2SAT 95
[2024-09-09 05:00] VITALS: BP 100/66; PULSE 76; RESP 16; TEMP 97.9; O2SAT 95
[2024-09-09 05:40] LABS: BASOPHILS # (AUTO) 0.1 X10'3 (0-0.2); BASOPHILS % (AUTO) 0.9 % (0-1); EOSINOPHILS # (AUTO) 0.1 X10'3 (0-0.9); EOSINOPHILS % (AUTO) 0.9 % (0-6); HEMATOCRIT 30.4 % (42.0-52.0); HEMOGLOBIN 10.3 g/dl (14.0-17.9); LYMPHOCYTES # (AUTO) 1.6 X10'3 (1.1-4.8); LYMPHOCYTES % (AUTO) 12.8 % (21-51); MEAN CORPUSCULAR HEMOGLOBIN 34.8 PG (27.0-31.0); MEAN CORPUSCULAR HGB CONC 33.8 g/dL (33.0-36.5); MEAN CORPUSCULAR VOLUME 103.1 FL (78-98); MEAN PLATELET VOLUME 7.6 FL (7.4-10.4); MONOCYTES # (AUTO) 1.1 X10'3 (0-0.9); MONOCYTES % (AUTO) 8.8 % (2-12); NEUTROPHILS # (AUTO) 9.7 X10'3 (1.8-7.7); NEUTROPHILS % (AUTO) 76.6 % (42-75); PLATELET COUNT 333 X10'3 (140-440); RED BLOOD COUNT 2.94 X10'6 (4.70-6.10); RED CELL DISTRIBUTION WIDTH 23.8 % (11.5-14.5); WHITE BLOOD COUNT 12.6 X10'3 (4.5-11.0)
[2024-09-09 05:51] LABS: INR 1.6 INR; PROTHROMBIN TIME 15.3 SECONDS (9.0-12.0)
[2024-09-09 05:57] LABS: ALANINE AMINOTRANSFERASE 52 U/L (12-78); ALBUMIN 1.3 G/DL (3.4-5.0); ALKALINE PHOSPHATASE 260 IU/L (46-116); ANION GAP 10 (8-16); ASPARTATE AMINO TRANSFERASE 248 U/L (10-37); BILIRUBIN,TOTAL 9.7 MG/DL (0.1-1.0); BLOOD UREA NITROGEN 9 MG/DL (7-18); BUN/CREATININE RATIO 12.9 (10.0-20.0); CHLORIDE 110 MMOL/L (99-107); GLUCOSE 70 MG/DL (70-104); LIPASE 22 U/L (16-77); MAGNESIUM 1.5 MG/DL (1.5-2.4); SODIUM 143 MMOL/L (135-145); TOTAL CARBON DIOXIDE 23.2 MMOL/L (24-32); eCRCL 128 ML/MIN; eGFR > 90 ML/MIN
[2024-09-09 06:06] LABS: ALBUMIN/GLOBULIN RATIO 0.3 (1.1-1.5); PHOSPHORUS 2.4 MG/DL (2.3-4.5); POTASSIUM 3.4 MMOL/L (3.5-5.1); TOTAL PROTEIN 5.1 G/DL (6.4-8.2)
[2024-09-09 07:08] LABS: ANISOCYTOSIS 3+; PLATELET ESTIMATE NORMAL; TARGET CELLS FEW
[2024-09-09] MEDS: dextrose 50%-water 50ml dispensing syringe IV ONE (07:32)
[2024-09-09 08:00] VITALS: RESP 16; O2SAT 95
[2024-09-09] MEDS: potassium Cl 20 mEq SR tablet PO STA (08:18)
[2024-09-09] MEDS ORDERED: LORazepam 1 MG tablet PO PRN (12:05)
[2024-09-09] MEDS: CefTRIAXone/D5W-Rocephin 1gm 50 ML IV SCH (12:44)
--- NOTE | 2024-09-09 14:34 | PROGRESS NOTE ---
Daily Progress Note Providers to CC ~ Antibiotic Timeout Antibiotic Ordered?: Yes If Yes, Indications: ascites Subjective No acute events overnight. Patient examined at bedside. No new complaints, not in acute distress. Patient is lethargic, arousable, but not alert or oriented. Vss, labs notable for downtrending t.bili. Started ceftriaxone given moderate ascites, started propranolol, Lasix/spironolactone 40mg/100mg. Objective Vital Signs Date Time Temp Pulse Resp B/P (MAP) Pulse Ox O2 Delivery O2 Flow Rate FiO2 09/09/24 08:11 76 09/09/24 08:00 16 95 Room Air 09/09/24 05:00 97.9 100/66 (77) 09/08/24 10:00 0.5 Result Diagram: 09/09/2452409/09/24524 Physical Exam General: Generalized weakness, drowsy, arousable, NAD HEENT: Normocephalic, PERRLA Neck: Supple, trachea midline, no JVD Chest: Clear to auscultation bilaterally Cardiovascular: RRR, S1&S2 GI: Distended, nontender Extremities: No cyanosis/clubbing/or edema POST GRADUATE INTERN: CN II-XII intact, no focal deficits Musculoskeletal: No paraspinal muscle tenderness, no muscle spasm Skin: Warm and intact Coagulation Studies Laboratory Tests Test 09/09/24 05:25 Prothrombin Time 15.3 SECONDS (9.0-12.0) H INR International Normalized Ratio 1.6 INR Coagulation Comments Problem\Assessment\Plan Problems/Diagnosis: (1) Hepatic encephalopathy # Acute decompensated liver failure, MELD score 22- POA # Hepatic encephalopathy # Alcohol-induced hepatitis # Cirrhosis # Alcohol withdrawal # DTs # Hypokalemia # Hypophosphatemia # Ascites, moderate -09/08 DTs have resolved discontinue on scheduled Librium, lactulose, potassium replacement protocol -09/09: start ceftriaxone given moderate upper abd ascites, started propranolol, Lasix/spironolactone 40mg/100mg; paracentesis ordered # Cholecystitis -US shows cholelithiasis with gallbladder wall thickening; lipase normal, t.bili downtrending -Note that the patient is not a candidate for a cholecystectomy due to his cirrhosis of the liver seen on ultrasound -Dorina # Hypokalemia -potassium replacement protocol Code Status: Full code Date of Service: September 09, 2024 Billing Provider: PARAM LAY Common Visit Codes: [id number] INP/OBS CARE(HIGH) PARAM LAY September 09, 2024 14:34
[2024-09-09] MEDS: furosemide 40mg/4ml inj IV ONE (14:40)
[2024-09-09] MEDS: spironolactone 50 MG tablet PO ONE (14:40)
[2024-09-09] MEDS: midodrine 5mg tablet PO PRN (16:45)
[2024-09-09 18:00] VITALS: BP 100/60; PULSE 90; RESP 20; TEMP 97.6; O2SAT 100
[2024-09-09 20:00] VITALS: RESP 20; O2SAT 100
[2024-09-09] MEDS: propranolol 10mg tablet PO SCH (20:00)
[2024-09-09 22:00] VITALS: BP 107/73; PULSE 78; RESP 16; TEMP 98.7; O2SAT 100
[2024-09-10 02:07] VITALS: BP 113/85; PULSE 77; RESP 16; TEMP 97.8; O2SAT 98
[2024-09-10 05:51] LABS: BASOPHILS # (AUTO) 0.1 X10'3 (0-0.2); BASOPHILS % (AUTO) 1.4 % (0-1); EOSINOPHILS # (AUTO) 0.1 X10'3 (0-0.9); EOSINOPHILS % (AUTO) 0.5 % (0-6); HEMATOCRIT 29.9 % (42.0-52.0); HEMOGLOBIN 10.3 g/dl (14.0-17.9); LYMPHOCYTES # (AUTO) 1.5 X10'3 (1.1-4.8); LYMPHOCYTES % (AUTO) 14.1 % (21-51); MEAN CORPUSCULAR HEMOGLOBIN 35.3 PG (27.0-31.0); MEAN CORPUSCULAR HGB CONC 34.3 g/dL (33.0-36.5); MEAN CORPUSCULAR VOLUME 102.9 FL (78-98); MEAN PLATELET VOLUME 7.3 FL (7.4-10.4); MONOCYTES # (AUTO) 1.3 X10'3 (0-0.9); MONOCYTES % (AUTO) 12.2 % (2-12); NEUTROPHILS # (AUTO) 7.5 X10'3 (1.8-7.7); NEUTROPHILS % (AUTO) 71.8 % (42-75); PLATELET COUNT 360 X10'3 (140-440); RED CELL DISTRIBUTION WIDTH 23.5 % (11.5-14.5); WHITE BLOOD COUNT 10.5 X10'3 (4.5-11.0)
[2024-09-10 06:00] VITALS: BP 116/86; PULSE 81; RESP 16; TEMP 97.6; O2SAT 96
[2024-09-10 06:10] LABS: INR 1.6 INR; PROTHROMBIN TIME 15.5 SECONDS (9.0-12.0)
[2024-09-10 06:17] LABS: ALANINE AMINOTRANSFERASE 54 U/L (12-78); ALBUMIN 1.3 G/DL (3.4-5.0); ALKALINE PHOSPHATASE 260 IU/L (46-116); ANION GAP 9 (8-16); ASPARTATE AMINO TRANSFERASE 217 U/L (10-37); BILIRUBIN,TOTAL 7.9 MG/DL (0.1-1.0); BLOOD UREA NITROGEN 11 MG/DL (7-18); BUN/CREATININE RATIO 13.6 (10.0-20.0); CALCIUM 7.6 MG/DL (8.5-10.1); CHLORIDE 114 MMOL/L (99-107); CREATININE 0.81 MG/DL (0.60-1.10); GLUCOSE 105 MG/DL (70-104); LIPASE 22 U/L (16-77); MAGNESIUM 1.4 MG/DL (1.5-2.4); SODIUM 145 MMOL/L (135-145); TOTAL CARBON DIOXIDE 22.3 MMOL/L (24-32); eCRCL 110 ML/MIN; eGFR > 90 ML/MIN
[2024-09-10 06:19] LABS: ALBUMIN/GLOBULIN RATIO 0.3 (1.1-1.5); POTASSIUM 3.1 MMOL/L (3.5-5.1); TOTAL PROTEIN 5.2 G/DL (6.4-8.2)
[2024-09-10 08:00] VITALS: RESP 16; O2SAT 96
[2024-09-10] MEDS ORDERED: furosemide 40mg/4ml inj IV SCH (08:00)
[2024-09-10] MEDS: spironolactone 50 MG tablet PO SCH (08:56)
[2024-09-10] MEDS: folic acid 1mg tablet PO SCH (08:57)
[2024-09-10 10:00] VITALS: BP 123/94; PULSE 85; RESP 14; TEMP 98.8; O2SAT 99
[2024-09-10 10:17] LABS: ANISOCYTOSIS 3+; PLATELET ESTIMATE NORMAL
[2024-09-10 10:18] LABS: TARGET CELLS FEW
[2024-09-10] MEDS ORDERED: spironolactone 25 MG tablet PO ONE (10:25)
[2024-09-10] MEDS ORDERED: potassium Cl 20 mEq SR tablet PO PRN (10:25)
[2024-09-10] MEDS ORDERED: potassium Cl 40MEQ/1/2NS 520ml 520 ML IV PRN (10:25)
--- NOTE | 2024-09-10 10:26 | PROGRESS NOTE ---
Daily Progress Note Providers to CC ~ Antibiotic Timeout Antibiotic Ordered?: Yes If Yes, Indications: ascites Subjective No acute events overnight. Patient examined at bedside. No new complaints, not in acute distress. Patient is lethargic, arousable, but not alert or oriented. Vss, labs notable for downtrending t.bili and normalized white count. On ceftriaxone given moderate ascites, continued on propranolol, Lasix/spironolactone, sodium-restricted diet. Objective Vital Signs Date Time Temp Pulse Resp B/P (MAP) Pulse Ox O2 Delivery O2 Flow Rate FiO2 09/10/24 02:07 97.8 77 16 113/85 (94) 98 Room Air 09/08/24 10:00 0.5 Result Diagram: 09/10/2452709/10/24527 Physical Exam General: Generalized weakness, generalized jaundice, drowsy, arousable, NAD HEENT: Normocephalic, PERRLA Neck: Supple, trachea midline, no JVD Chest: Clear to auscultation bilaterally Cardiovascular: RRR, S1&S2 GI: Distended, nontender Extremities: No cyanosis/clubbing/or edema SCALLOP RAKER: CN II-XII intact, no focal deficits Musculoskeletal: No paraspinal muscle tenderness, no muscle spasm Skin: Warm and intact Coagulation Studies Laboratory Tests Test 09/10/24 05:28 Prothrombin Time 15.5 SECONDS (9.0-12.0) H INR International Normalized Ratio 1.6 INR Coagulation Comments Problem\Assessment\Plan Problems/Diagnosis: (1) Hepatic encephalopathy # Acute decompensated liver failure, MELD score 22- POA # Hepatic encephalopathy # Alcohol-induced hepatitis # Cirrhosis # Alcohol withdrawal # DTs # Hypokalemia # Hypophosphatemia # Ascites, moderate -09/08 DTs have resolved discontinue on scheduled Librium, lactulose, potassium replacement protocol, alcohol withdrawal protocol -09/09: start ceftriaxone given moderate upper abd ascites, started propranolol, Lasix/spironolactone 40mg/100mg; paracentesis ordered -09/10: continued on current regimen, paracentesis pending # Cholecystitis -US shows cholelithiasis with gallbladder wall thickening; lipase normal, t.bili downtrending -Note that the patient is not a candidate for a cholecystectomy due to his cirrhosis of the liver seen on ultrasound -Zosyn # Hypokalemia -potassium replacement protocol Code Status: Full code Diet: Sodium-restricted diet Date of Service: September 10, 2024 Billing Provider: PARAM LAY Common Visit Codes: [id number] INP/OBS CARE(HIGH) PARAM LAY September 10, 2024 10:26
[2024-09-10] MEDS: furosemide 20 MG/2 ML vial IV ONE (10:43)
[2024-09-10] MEDS: magnesium sulf-water 2g/50mL 50 ML IV PRN (10:49)
[2024-09-10] MEDS: potassium Cl 20 mEq SR tablet PO PRN (10:50)
[2024-09-10 11:15] LABS: HEMATOCRIT 31.5 % (42.0-52.0); HEMOGLOBIN 10.5 g/dl (14.0-17.9); MEAN CORPUSCULAR HEMOGLOBIN 34.5 PG (27.0-31.0); MEAN CORPUSCULAR HGB CONC 33.3 g/dL (33.0-36.5); MEAN CORPUSCULAR VOLUME 103.8 FL (78-98); MEAN PLATELET VOLUME 7.8 FL (7.4-10.4); PLATELET COUNT 359 X10'3 (140-440); RED BLOOD COUNT 3.03 X10'6 (4.70-6.10); RED CELL DISTRIBUTION WIDTH 23.6 % (11.5-14.5); WHITE BLOOD COUNT 9.9 X10'3 (4.5-11.0)
[2024-09-10] MEDS: lactose-reduced food (Ensure Enlive) - 237ml bottle PO SCH (13:00)
--- NOTE | 2024-09-10 13:52 | PROGRESS NOTE ---
Progress Note - Angio Providers to CC ~ Angio Progress Note: Bedside ultrasound shows only one usable pocket unfortunately it is RUQ with liver too close for percutaneous access without risk of bleeding. Perhaps rescanning in a week, even as outpatient may be warranted if clinical symptoms persist. NAVARRO WALKER MD September 10, 2024 13:52
--- NOTE | 2024-09-10 13:56 | RADIOLOGY REPORT ---
Limited portable abdominal sonogram: Real-time ultrasound examination of the abdomen was done in order to evaluate for possible paracentesis. Only a small fluid collection is seen near the inferior margin of the liver right upper quadrant scan. All other quadrants demonstrate only small collections. Given the proximity to the liver this one pocket may not be advisable for paracentesis at this time given extra risks of bleeding with injury to the liver capsule. IMPRESSION: Limited abdominal sonogram demonstrates only a small pocket near the right upper quadrant. Perhaps rescanning in 1-2 weeks even as outpatient if clinical symptoms persist would be beneficial.
[2024-09-10 18:00] VITALS: BP 102/64; PULSE 71; RESP 14; TEMP 98.8; O2SAT 95
[2024-09-10 19:17] LABS: HEMOGLOBIN 10.4 g/dl (14.0-17.9); MEAN CORPUSCULAR HEMOGLOBIN 34.7 PG (27.0-31.0); MEAN CORPUSCULAR HGB CONC 33.4 g/dL (33.0-36.5); MEAN CORPUSCULAR VOLUME 103.7 FL (78-98); MEAN PLATELET VOLUME 7.4 FL (7.4-10.4); PLATELET COUNT 345 X10'3 (140-440); RED BLOOD COUNT 2.99 X10'6 (4.70-6.10); RED CELL DISTRIBUTION WIDTH 23.7 % (11.5-14.5); WHITE BLOOD COUNT 11.5 X10'3 (4.5-11.0)
[2024-09-10] MEDS: K and/or MAG REPLACEMENT MC SCH (20:00)
[2024-09-10] MEDS: magnesium sulf-water 4G/100mL 100 ML IV PRN (21:21)
[2024-09-10 22:00] VITALS: BP 132/87; PULSE 84; RESP 16; TEMP 98.7; O2SAT 95
[2024-09-10 22:07] LABS: HEMATOCRIT 31.2 % (42.0-52.0); HEMOGLOBIN 10.4 g/dl (14.0-17.9); MEAN CORPUSCULAR HEMOGLOBIN 34.6 PG (27.0-31.0); MEAN CORPUSCULAR HGB CONC 33.2 g/dL (33.0-36.5); MEAN CORPUSCULAR VOLUME 104.2 FL (78-98); MEAN PLATELET VOLUME 7.5 FL (7.4-10.4); PLATELET COUNT 354 X10'3 (140-440); RED BLOOD COUNT 2.99 X10'6 (4.70-6.10); RED CELL DISTRIBUTION WIDTH 23.5 % (11.5-14.5); WHITE BLOOD COUNT 11.7 X10'3 (4.5-11.0)
[2024-09-11] MEDS: piperacillin/tazobactam inj. 3.375 GM in NS 50ml IV SCH (00:39)
[2024-09-11 06:00] VITALS: BP 127/94; PULSE 65; RESP 16; TEMP 97.4; O2SAT 98
[2024-09-11 06:21] LABS: BASOPHILS # (AUTO) 0.2 X10'3 (0-0.2); BASOPHILS % (AUTO) 1.1 % (0-1); EOSINOPHILS # (AUTO) 0.1 X10'3 (0-0.9); EOSINOPHILS % (AUTO) 0.6 % (0-6); HEMATOCRIT 31.7 % (42.0-52.0); HEMOGLOBIN 10.7 g/dl (14.0-17.9); LYMPHOCYTES # (AUTO) 1.7 X10'3 (1.1-4.8); LYMPHOCYTES % (AUTO) 11.7 % (21-51); MEAN CORPUSCULAR HEMOGLOBIN 34.7 PG (27.0-31.0); MEAN CORPUSCULAR HGB CONC 33.7 g/dL (33.0-36.5); MEAN PLATELET VOLUME 7.6 FL (7.4-10.4); MONOCYTES # (AUTO) 1.5 X10'3 (0-0.9); MONOCYTES % (AUTO) 10.5 % (2-12); NEUTROPHILS # (AUTO) 11.1 X10'3 (1.8-7.7); NEUTROPHILS % (AUTO) 76.1 % (42-75); PLATELET COUNT 392 X10'3 (140-440); RED BLOOD COUNT 3.08 X10'6 (4.70-6.10); RED CELL DISTRIBUTION WIDTH 22.9 % (11.5-14.5); WHITE BLOOD COUNT 14.5 X10'3 (4.5-11.0)
[2024-09-11 06:43] LABS: ALANINE AMINOTRANSFERASE 57 U/L (12-78); ALBUMIN 1.4 G/DL (3.4-5.0); ALKALINE PHOSPHATASE 274 IU/L (46-116); ANION GAP 11 (8-16); ASPARTATE AMINO TRANSFERASE 209 U/L (10-37); BILIRUBIN,TOTAL 7.1 MG/DL (0.1-1.0); BLOOD UREA NITROGEN 10 MG/DL (7-18); BUN/CREATININE RATIO 14.5 (10.0-20.0); CALCIUM 7.9 MG/DL (8.5-10.1); CHLORIDE 111 MMOL/L (99-107); CREATININE 0.69 MG/DL (0.60-1.10); GLUCOSE 90 MG/DL (70-104); SODIUM 144 MMOL/L (135-145); TOTAL CARBON DIOXIDE 22.4 MMOL/L (24-32); eCRCL 130 ML/MIN; eGFR > 90 ML/MIN
[2024-09-11 06:46] LABS: ALBUMIN/GLOBULIN RATIO 0.3 (1.1-1.5); POTASSIUM 3.6 MMOL/L (3.5-5.1); TOTAL PROTEIN 5.5 G/DL (6.4-8.2)
[2024-09-11] MEDS: furosemide 20 MG/2 ML vial IV SCH (07:08)
[2024-09-11 08:00] VITALS: RESP 16; O2SAT 98
[2024-09-11 10:00] VITALS: BP 131/97; PULSE 66; RESP 16; TEMP 97.3; O2SAT 95
[2024-09-11] MEDS: spironolactone 50 MG tablet PO SCH (10:12)
--- NOTE | 2024-09-11 13:36 | PROGRESS NOTE ---
Daily Progress Note Providers to CC ~ Antibiotic Timeout Antibiotic Ordered?: Yes Subjective No acute events overnight. Patient examined at bedside. No new complaints. Patient is lethargic, unable to continue PT, awake but not alert or oriented. Patient denies chest pain, sob, palpitations, abdominal pain, n/v/d. Paracentesis not done due to location of ascites carrying higher risk of adverse events/bleeding with thoracentesis. Vss, labs notable for slightly uptrended white count, procal 0.47. Continued on empirical abx. Objective Vital Signs Date Time Temp Pulse Resp B/P (MAP) Pulse Ox O2 Delivery O2 Flow Rate FiO2 09/11/24 10:00 97.3 66 16 131/97 (108) 95 Room Air 09/08/24 10:00 0.5 Result Diagram: 09/11/2452109/11/24521 Physical Exam General: Generalized weakness, generalized jaundice, awake but not alert or oriented, NAD HEENT: Normocephalic, PERRLA Neck: Supple, trachea midline, no JVD Chest: Clear to auscultation bilaterally Cardiovascular: RRR, S1&S2 GI: Distended, nontender Extremities: No cyanosis/clubbing/or edema PROJECT PRODUCTION ENGINEER: CN II-XII intact, no focal deficits Musculoskeletal: No paraspinal muscle tenderness, no muscle spasm Skin: Warm and intact Coagulation Studies Laboratory Tests Test 09/10/24 05:28 Prothrombin Time 15.5 SECONDS (9.0-12.0) H INR International Normalized Ratio 1.6 INR Coagulation Comments Problem\Assessment\Plan Problems/Diagnosis: (1) Hepatic encephalopathy # Acute decompensated liver failure, MELD score 22- POA # Hepatic encephalopathy # Alcohol-induced hepatitis # Cirrhosis # Alcohol withdrawal # DTs # Hypokalemia # Hypophosphatemia # Ascites, moderate -09/08 DTs have resolved discontinue on scheduled Librium, lactulose, potassium replacement protocol, alcohol withdrawal protocol -09/09: start ceftriaxone given moderate upper abd ascites, started propranolol, Lasix/spironolactone 40mg/100mg; paracentesis ordered -09/10: continued on current regimen, paracentesis pending -09/11: eval for paracentesis done; para not done due to risks>benefits # Cholecystitis -US shows cholelithiasis with gallbladder wall thickening; lipase normal, t.bili downtrending -Note that the patient is not a candidate for a cholecystectomy due to his cirrhosis of the liver seen on ultrasound -Zosyn # Hypokalemia -potassium replacement protocol Code Status: Full code Diet: Sodium-restricted diet Date of Service: September 11, 2024 Billing Provider: PARAM LAY Common Visit Codes: [id number] INP/OBS CARE(HIGH) PARAM LAY September 11, 2024 13:36
[2024-09-11 18:00] VITALS: BP 96/69; PULSE 72; RESP 8; TEMP 97.5; O2SAT 95
[2024-09-11 18:30] VITALS: BP 96/69; PULSE 72; RESP 18; TEMP 97.5; O2SAT 95
[2024-09-11 21:10] LABS: MAGNESIUM 1.3 MG/DL (1.5-2.4)
[2024-09-11 21:14] LABS: POTASSIUM 3.9 MMOL/L (3.5-5.1)
[2024-09-11 22:00] VITALS: BP 167/72; PULSE 80; RESP 18; TEMP 97.8; O2SAT 93
[2024-09-12 06:00] VITALS: BP 104/62; PULSE 56; RESP 17; TEMP 97.2; O2SAT 98
[2024-09-12 06:57] LABS: BASOPHILS # (AUTO) 0.1 X10'3 (0-0.2); BASOPHILS % (AUTO) 1.1 % (0-1); EOSINOPHILS # (AUTO) 0.1 X10'3 (0-0.9); EOSINOPHILS % (AUTO) 0.7 % (0-6); HEMATOCRIT 31.3 % (42.0-52.0); HEMOGLOBIN 10.6 g/dl (14.0-17.9); LYMPHOCYTES # (AUTO) 1.9 X10'3 (1.1-4.8); LYMPHOCYTES % (AUTO) 16.7 % (21-51); MEAN CORPUSCULAR HEMOGLOBIN 35.2 PG (27.0-31.0); MEAN CORPUSCULAR VOLUME 103.6 FL (78-98); MEAN PLATELET VOLUME 7.5 FL (7.4-10.4); MONOCYTES # (AUTO) 1.3 X10'3 (0-0.9); MONOCYTES % (AUTO) 11.3 % (2-12); NEUTROPHILS # (AUTO) 8.1 X10'3 (1.8-7.7); NEUTROPHILS % (AUTO) 70.2 % (42-75); PLATELET COUNT 368 X10'3 (140-440); RED BLOOD COUNT 3.03 X10'6 (4.70-6.10); RED CELL DISTRIBUTION WIDTH 23.1 % (11.5-14.5); WHITE BLOOD COUNT 11.6 X10'3 (4.5-11.0)
[2024-09-12 07:23] LABS: ALANINE AMINOTRANSFERASE 56 U/L (12-78); ALBUMIN 1.2 G/DL (3.4-5.0); ALKALINE PHOSPHATASE 252 IU/L (46-116); ANION GAP 8 (8-16); ASPARTATE AMINO TRANSFERASE 172 U/L (10-37); BILIRUBIN,TOTAL 5.8 MG/DL (0.1-1.0); BLOOD UREA NITROGEN 12 MG/DL (7-18); BUN/CREATININE RATIO 17.4 (10.0-20.0); CALCIUM 8.2 MG/DL (8.5-10.1); CHLORIDE 112 MMOL/L (99-107); CREATININE 0.69 MG/DL (0.60-1.10); GLUCOSE 102 MG/DL (70-104); POTASSIUM 3.2 MMOL/L (3.5-5.1); SODIUM 143 MMOL/L (135-145); TOTAL CARBON DIOXIDE 23.4 MMOL/L (24-32); eCRCL 130 ML/MIN; eGFR > 90 ML/MIN
[2024-09-12 07:25] LABS: ALBUMIN/GLOBULIN RATIO 0.3 (1.1-1.5); TOTAL PROTEIN 5.4 G/DL (6.4-8.2)
[2024-09-12] MEDS ORDERED: magnesium sulf-water 2g/50mL 50 ML IV PRN (07:30)
[2024-09-12] MEDS ORDERED: potassium Cl 40MEQ/1/2NS 520ml 520 ML IV PRN (07:30)
[2024-09-12] MEDS ORDERED: potassium Cl 20 mEq SR tablet PO PRN ×2 (07:30)
[2024-09-12] MEDS ORDERED: magnesium sulf-water 4G/100mL 100 ML IV PRN (07:30)
[2024-09-12] MEDS: K and/or MAG REPLACEMENT MC SCH (08:00)
[2024-09-12 08:15] VITALS: BP 102/78; PULSE 52
[2024-09-12 08:28] LABS: PLATELET ESTIMATE NORMAL
[2024-09-12 08:29] LABS: ANISOCYTOSIS 3+; HYPOCHROMASIA 1+; POLYCHROMASIA 1+; SCHISTOCYTES FEW; TARGET CELLS 2+; TEAR DROP CELLS FEW
[2024-09-12 10:00] VITALS: BP 122/83; PULSE 59; RESP 14; TEMP 98.4; O2SAT 96
--- NOTE | 2024-09-12 10:19 | PROGRESS NOTE ---
Daily Progress Note Providers to CC ~ Antibiotic Timeout Antibiotic Ordered?: Yes If Yes, Indications: ascites Subjective No acute events overnight. Patient examined at bedside. No new complaints. Patient is lethargic, but awake and oriented. Patient denies chest pain, sob, palpitations, abdominal pain, n/v/d. Paracentesis not done due to location of ascites carrying higher risk of adverse events/bleeding with thoracentesis. Vss, labs unremarkable. Continued on empirical abx. Continue PT. Objective Vital Signs Date Time Temp Pulse Resp B/P (MAP) Pulse Ox O2 Delivery O2 Flow Rate FiO2 09/12/24 08:15 52 102/78 (86) 09/12/24 08:00 Room Air 0.5 09/12/24 06:00 97.2 17 98 Result Diagram: 09/12/2463509/12/24 0636 Physical Exam General: Generalized weakness, generalized jaundice, awake, A&Ox2, NAD HEENT: Normocephalic, PERRLA Neck: Supple, trachea midline, no JVD Chest: Clear to auscultation bilaterally Cardiovascular: RRR, S1&S2 GI: Distended, nontender Extremities: No cyanosis/clubbing/or edema ENVIRONMENTAL EMERGENCIES ASSISTANT: CN II-XII intact, no focal deficits Musculoskeletal: No paraspinal muscle tenderness, no muscle spasm Skin: Warm and intact Coagulation Studies Laboratory Tests Test 09/10/24 05:28 Prothrombin Time 15.5 SECONDS (9.0-12.0) H INR International Normalized Ratio 1.6 INR Coagulation Comments Problem\Assessment\Plan Problems/Diagnosis: (1) Hepatic encephalopathy # Acute decompensated liver failure, MELD score 22- POA # Hepatic encephalopathy # Alcohol-induced hepatitis # Cirrhosis # Alcohol withdrawal # DTs # Hypokalemia # Hypophosphatemia # Ascites, moderate -09/08 DTs have resolved discontinue on scheduled Librium, lactulose, potassium replacement protocol, alcohol withdrawal protocol -09/09: start ceftriaxone given moderate upper abd ascites, started propranolol, Lasix/spironolactone 40mg/100mg; paracentesis ordered -09/10: continued on current regimen, paracentesis pending -09/11: eval for paracentesis done; para not done due to risks>benefits -09/12: need to continue PT # Cholecystitis -US shows cholelithiasis with gallbladder wall thickening; lipase normal, t.bili downtrending -Note that the patient is not a candidate for a cholecystectomy due to his cirrhosis of the liver seen on ultrasound -Zosyn # Hypokalemia -potassium replacement protocol Code Status: Full code Diet: Sodium-restricted diet Date of Service: September 12, 2024 Billing Provider: PARAM LAY Common Visit Codes: [id number] INP/OBS CARE(HIGH) PARAM LAY September 12, 2024 10:19
[2024-09-12 18:00] VITALS: BP 95/74; PULSE 65; RESP 16; TEMP 98; O2SAT 98
[2024-09-12 20:00] VITALS: RESP 16; O2SAT 98
[2024-09-12 22:00] VITALS: BP 102/83; PULSE 63; RESP 18; TEMP 98.2; O2SAT 95
[2024-09-12] MEDS: morphine 2 MG/ML inj. syringe IV ONE (22:56)
[2024-09-13 06:00] VITALS: BP 98/65; PULSE 56; RESP 18; TEMP 98.6; O2SAT 98
[2024-09-13 06:20] LABS: BASOPHILS % (AUTO) 0.4 % (0-1); EOSINOPHILS # (AUTO) 0.2 X10'3 (0-0.9); EOSINOPHILS % (AUTO) 1.4 % (0-6); HEMATOCRIT 32.8 % (42.0-52.0); HEMOGLOBIN 10.8 g/dl (14.0-17.9); LYMPHOCYTES # (AUTO) 2.6 X10'3 (1.1-4.8); LYMPHOCYTES % (AUTO) 20.2 % (21-51); MEAN CORPUSCULAR HEMOGLOBIN 34.5 PG (27.0-31.0); MEAN CORPUSCULAR VOLUME 104.5 FL (78-98); MEAN PLATELET VOLUME 7.8 FL (7.4-10.4); MONOCYTES # (AUTO) 1.3 X10'3 (0-0.9); NEUTROPHILS # (AUTO) 8.6 X10'3 (1.8-7.7); PLATELET COUNT 306 X10'3 (140-440); RED BLOOD COUNT 3.14 X10'6 (4.70-6.10); RED CELL DISTRIBUTION WIDTH 22.8 % (11.5-14.5); WHITE BLOOD COUNT 12.7 X10'3 (4.5-11.0)
[2024-09-13 09:21] LABS: ALANINE AMINOTRANSFERASE 70 U/L (12-78); ALBUMIN 1.5 G/DL (3.4-5.0); ALKALINE PHOSPHATASE 283 IU/L (46-116); ANION GAP 9 (8-16); BILIRUBIN,TOTAL 6.1 MG/DL (0.1-1.0); BLOOD UREA NITROGEN 15 MG/DL (7-18); BUN/CREATININE RATIO 17.2 (10.0-20.0); CALCIUM 8.4 MG/DL (8.5-10.1); CHLORIDE 115 MMOL/L (99-107); CREATININE 0.87 MG/DL (0.60-1.10); GLUCOSE 70 MG/DL (70-104); SODIUM 146 MMOL/L (135-145); TOTAL CARBON DIOXIDE 22.1 MMOL/L (24-32); eCRCL 103 ML/MIN; eGFR > 90 ML/MIN
[2024-09-13 09:22] LABS: ALBUMIN/GLOBULIN RATIO 0.3 (1.1-1.5); ASPARTATE AMINO TRANSFERASE 188 U/L (10-37); POTASSIUM 4.3 MMOL/L (3.5-5.1); TOTAL PROTEIN 6.3 G/DL (6.4-8.2)
--- NOTE | 2024-09-13 09:55 | PROGRESS NOTE ---
Daily Progress Note Providers to CC ~ Antibiotic Timeout Antibiotic Ordered?: Yes Subjective No acute events overnight. Patient examined at bedside. No new complaints. Patient is lethargic, but awake and oriented. Patient denies chest pain, sob, palpitations, abdominal pain, n/v/d. Paracentesis not done due to location of ascites carrying higher risk of adverse events/bleeding with paracentesis. Vss, labs unremarkable. Continued on empirical abx. Continue PT. Objective Vital Signs Date Time Temp Pulse Resp B/P (MAP) Pulse Ox O2 Delivery O2 Flow Rate FiO2 09/13/24 06:00 98.6 56 18 98/65 (76) 98 Room Air 09/12/24 08:00 0.5 Result Diagram: 09/13/24 0536 09/13/24 0742 Physical Exam General: Generalized weakness, generalized jaundice, awake, A&Ox2, NAD HEENT: Normocephalic, PERRLA Neck: Supple, trachea midline, no JVD Chest: Clear to auscultation bilaterally Cardiovascular: RRR, S1&S2 GI: Distended, nontender Extremities: No cyanosis/clubbing/or edema HEADING SAW OPERATOR: CN II-XII intact, no focal deficits Musculoskeletal: No paraspinal muscle tenderness, no muscle spasm Skin: Warm and intact Coagulation Studies Laboratory Tests Test 09/10/24 05:28 Prothrombin Time 15.5 SECONDS (9.0-12.0) H INR International Normalized Ratio 1.6 INR Coagulation Comments Problem\Assessment\Plan Problems/Diagnosis: (1) Hepatic encephalopathy # Acute decompensated liver failure, MELD score 22- POA # Hepatic encephalopathy # Alcohol-induced hepatitis # Cirrhosis # Alcohol withdrawal # DTs # Hypokalemia # Hypophosphatemia # Ascites, moderate -09/08 DTs have resolved discontinue on scheduled Librium, lactulose, potassium replacement protocol, alcohol withdrawal protocol -09/09: start ceftriaxone given moderate upper abd ascites, started propranolol, Lasix/spironolactone 40mg/100mg; paracentesis ordered -09/10: continued on current regimen, paracentesis pending -09/11: eval for paracentesis done; para not done due to risks>benefits -09/12: need to continue PT # Cholecystitis -US shows cholelithiasis with gallbladder wall thickening; lipase normal, t.bili downtrending -Note that the patient is not a candidate for a cholecystectomy due to his cirrhosis of the liver seen on ultrasound -Zosyn # Hypokalemia -potassium replacement protocol Code Status: Full code Diet: Sodium-restricted diet Date of Service: September 13, 2024 Billing Provider: PARAM LAY Common Visit Codes: [id number] INP/OBS CARE(HIGH) PARAM LAY September 13, 2024 09:55
[2024-09-13 10:00] VITALS: BP 140/98; PULSE 64; RESP 16; TEMP 98.7; O2SAT 94
[2024-09-13 20:00] VITALS: BP 143/101; PULSE 75; RESP 16; TEMP 98; O2SAT 93; O2SAT 97
[2024-09-13 22:00] VITALS: BP 135/97; PULSE 72; RESP 16; TEMP 97.9; O2SAT 96
[2024-09-13 23:23] VITALS: RESP 18; O2SAT 98
[2024-09-14 06:33] VITALS: BP 129/85; PULSE 68; RESP 20; TEMP 97.7; O2SAT 91
[2024-09-14 06:58] LABS: BASOPHILS # (AUTO) 0.1 X10'3 (0-0.2); BASOPHILS % (AUTO) 0.8 % (0-1); EOSINOPHILS # (AUTO) 0.1 X10'3 (0-0.9); EOSINOPHILS % (AUTO) 0.4 % (0-6); HEMATOCRIT 35.3 % (42.0-52.0); HEMOGLOBIN 11.6 g/dl (14.0-17.9); LYMPHOCYTES # (AUTO) 2.8 X10'3 (1.1-4.8); LYMPHOCYTES % (AUTO) 15.1 % (21-51); MEAN CORPUSCULAR HEMOGLOBIN 34.8 PG (27.0-31.0); MEAN CORPUSCULAR HGB CONC 32.9 g/dL (33.0-36.5); MEAN PLATELET VOLUME 7.5 FL (7.4-10.4); MONOCYTES # (AUTO) 1.5 X10'3 (0-0.9); MONOCYTES % (AUTO) 8.1 % (2-12); NEUTROPHILS # (AUTO) 13.9 X10'3 (1.8-7.7); NEUTROPHILS % (AUTO) 75.6 % (42-75); PLATELET COUNT 319 X10'3 (140-440); RED BLOOD COUNT 3.33 X10'6 (4.70-6.10); RED CELL DISTRIBUTION WIDTH 22.6 % (11.5-14.5); WHITE BLOOD COUNT 18.4 X10'3 (4.5-11.0)
[2024-09-14 07:32] LABS: ALANINE AMINOTRANSFERASE 66 U/L (12-78); ALBUMIN 1.4 G/DL (3.4-5.0); ALKALINE PHOSPHATASE 272 IU/L (46-116); ANION GAP 10 (8-16); ASPARTATE AMINO TRANSFERASE 169 U/L (10-37); BILIRUBIN,TOTAL 5.3 MG/DL (0.1-1.0); BLOOD UREA NITROGEN 13 MG/DL (7-18); BUN/CREATININE RATIO 21.7 (10.0-20.0); CALCIUM 8.4 MG/DL (8.5-10.1); CHLORIDE 110 MMOL/L (99-107); GLUCOSE 98 MG/DL (70-104); SODIUM 141 MMOL/L (135-145); TOTAL CARBON DIOXIDE 21.5 MMOL/L (24-32); eCRCL 149 ML/MIN; eGFR > 90 ML/MIN
[2024-09-14 07:46] LABS: ALBUMIN/GLOBULIN RATIO 0.3 (1.1-1.5); POTASSIUM 3.7 MMOL/L (3.5-5.1); TOTAL PROTEIN 6.1 G/DL (6.4-8.2)
[2024-09-14 08:00] VITALS: RESP 16
[2024-09-14 10:00] VITALS: BP 141/102; PULSE 65; RESP 16; TEMP 97.3; O2SAT 97
[2024-09-14] MEDS: dextrose 50%-water 50ml dispensing syringe IV ONE ×2 (12:16→17:42)
--- NOTE | 2024-09-14 13:21 | PROGRESS NOTE ---
Daily Progress Note Providers to CC ~ Antibiotic Timeout Antibiotic Ordered?: Yes Subjective No acute events overnight. Patient examined at bedside. No new complaints. Patient is lethargic, but awake, alert, oriented. Patient denies chest pain, sob, palpitations, abdominal pain, n/v/d. Paracentesis not done due to location of ascites carrying higher risk of adverse events/bleeding with paracentesis. Vss, labs notable for uptrend of white count, downtrending transaminitis, continued on abx. Continue PT. Objective Vital Signs Date Time Temp Pulse Resp B/P (MAP) Pulse Ox O2 Delivery O2 Flow Rate FiO2 09/14/24 06:33 97.7 68 20 129/85 (100) 91 09/13/24 23:23 Room Air 09/12/24 08:00 0.5 Result Diagram: 09/14/24 0649 09/14/24 0649 Physical Exam General: Generalized weakness, generalized jaundice, awake, A&Ox2, NAD HEENT: Normocephalic, PERRLA Neck: Supple, trachea midline, no JVD Chest: Clear to auscultation bilaterally Cardiovascular: RRR, S1&S2 GI: Distended, nontender Extremities: No cyanosis/clubbing/or edema FILTER CHANGING TECHNICIAN: CN II-XII intact, no focal deficits Musculoskeletal: No paraspinal muscle tenderness, no muscle spasm Skin: Warm and intact Coagulation Studies Laboratory Tests Test 09/10/24 05:28 Prothrombin Time 15.5 SECONDS (9.0-12.0) H INR International Normalized Ratio 1.6 INR Coagulation Comments Problem\Assessment\Plan Problems/Diagnosis: (1) Hepatic encephalopathy # Acute decompensated liver failure, MELD score 22- POA # Hepatic encephalopathy # Alcohol-induced hepatitis # Cirrhosis # Alcohol withdrawal # DTs # Hypokalemia # Hypophosphatemia # Ascites, moderate -09/08 DTs have resolved discontinue on scheduled Librium, lactulose, potassium replacement protocol, alcohol withdrawal protocol -09/09: start ceftriaxone given moderate upper abd ascites, started propranolol, Lasix/spironolactone 40mg/100mg; paracentesis ordered -09/10: continued on current regimen, paracentesis pending -09/11: eval for paracentesis done; para not done due to risks>benefits -09/12: need to continue PT -09/14: uptrend of white count, continued on Zosyn # Cholecystitis -US shows cholelithiasis with gallbladder wall thickening; lipase normal, t.bili downtrending -Note that the patient is not a candidate for a cholecystectomy due to his cirrhosis of the liver seen on ultrasound -Zosyn # Hypokalemia -potassium replacement protocol Code Status: Full code Diet: Sodium-restricted diet Date of Service: September 14, 2024 Billing Provider: PARAM LAY Common Visit Codes: [id number] INP/OBS CARE(HIGH) PARAM LAY September 14, 2024 13:21
[2024-09-14 16:58] LABS: C DIFF ANTIGEN NEGATIVE (NEGATIVE); C DIFF SPECIMEN=DIARRHEA? ACCEPTABLE; C DIFFICILE TOXINS A&B NEGATIVE (Neg)
[2024-09-14 18:30] VITALS: BP 106/84; PULSE 78; RESP 14; TEMP 98.4; O2SAT 96
[2024-09-14 22:00] VITALS: BP 111/83; PULSE 73; RESP 15; TEMP 97.9; O2SAT 99
[2024-09-15] VITALS (13 sets, daily range): BP systolic 90–131; BP diastolic 55–84; PULSE 59–96; RESP 16–20; TEMP 97.9–98.7; O2SAT 93–99
[2024-09-15 04:21] LABS: BASOPHILS # (AUTO) 0.1 X10'3 (0-0.2); BASOPHILS % (AUTO) 0.9 % (0-1); EOSINOPHILS # (AUTO) 0.1 X10'3 (0-0.9); EOSINOPHILS % (AUTO) 0.8 % (0-6); HEMATOCRIT 32.4 % (42.0-52.0); HEMOGLOBIN 10.9 g/dl (14.0-17.9); LYMPHOCYTES # (AUTO) 3.3 X10'3 (1.1-4.8); LYMPHOCYTES % (AUTO) 21.5 % (21-51); MEAN CORPUSCULAR HEMOGLOBIN 34.7 PG (27.0-31.0); MEAN CORPUSCULAR HGB CONC 33.6 g/dL (33.0-36.5); MEAN CORPUSCULAR VOLUME 103.5 FL (78-98); MEAN PLATELET VOLUME 7.6 FL (7.4-10.4); MONOCYTES % (AUTO) 6.4 % (2-12); NEUTROPHILS # (AUTO) 10.9 X10'3 (1.8-7.7); NEUTROPHILS % (AUTO) 70.4 % (42-75); PLATELET COUNT 296 X10'3 (140-440); RED BLOOD COUNT 3.13 X10'6 (4.70-6.10); WHITE BLOOD COUNT 15.5 X10'3 (4.5-11.0)
[2024-09-15 04:34] LABS: ALANINE AMINOTRANSFERASE 58 U/L (12-78); ALBUMIN 1.4 G/DL (3.4-5.0); ALKALINE PHOSPHATASE 267 IU/L (46-116); ANION GAP 8 (8-16); ASPARTATE AMINO TRANSFERASE 133 U/L (10-37); BILIRUBIN,TOTAL 4.6 MG/DL (0.1-1.0); BLOOD UREA NITROGEN 15 MG/DL (7-18); BUN/CREATININE RATIO 18.8 (10.0-20.0); CHLORIDE 104 MMOL/L (99-107); GLUCOSE 94 MG/DL (70-104); POTASSIUM 3.3 MMOL/L (3.5-5.1); SODIUM 136 MMOL/L (135-145); TOTAL CARBON DIOXIDE 24.3 MMOL/L (24-32); eCRCL 112 ML/MIN; eGFR > 90 ML/MIN
[2024-09-15 04:35] LABS: ALBUMIN/GLOBULIN RATIO 0.3 (1.1-1.5); TOTAL PROTEIN 5.7 G/DL (6.4-8.2)
--- NOTE | 2024-09-15 08:29 | PROGRESS NOTE ---
Daily Progress Note Providers to CC ~ Antibiotic Timeout Antibiotic Ordered?: Yes Objective Vital Signs Date Time Temp Pulse Resp B/P (MAP) Pulse Ox O2 Delivery O2 Flow Rate FiO2 09/15/24 06:00 98.4 59 19 106/79 (88) 99 Room Air 09/12/24 08:00 0.5 Result Diagram: 09/15/24 0403 09/15/24 0403 General: Generalized weakness, generalized jaundice, awake, A&Ox2, NAD ANSWERS APPROPRIATELY THOUGH SLOWLY HEENT: Normocephalic, PERRLA POSITIVE SCLERA FOR ICTERUS POSITIVE CONJUNCTIVA FOR PALLOR RESPIRATORY Clear to auscultation bilaterally NO RALES RHONCHI CRACKLES OR WHEEZING Cardiovascular: RRR, S1&S2 ABDOMEN PLUS ONE DISTENDED NONTENDER NO FLUID THRILL APPRECIATED NO MASSES APPRECIATED Extremities: No cyanosis/clubbing/or edema Coagulation Studies Laboratory Tests Test 09/10/24 05:28 Prothrombin Time 15.5 SECONDS (9.0-12.0) H INR International Normalized Ratio 1.6 INR Coagulation Comments Problem\Assessment\Plan Problems/Diagnosis: (1) Hepatic encephalopathy # Acute decompensated liver failure, MELD score 22- POA # Hepatic encephalopathy # Alcohol-induced hepatitis # Cirrhosis # Alcohol withdrawal # DTs # Hypokalemia # Hypophosphatemia # Ascites, moderate # LEUKOCYTOSIS -09/08 DTs have resolved discontinue on scheduled Librium, lactulose, potassium replacement protocol, alcohol withdrawal protocol -09/09: start ceftriaxone given moderate upper abd ascites, started propranolol, Lasix/spironolactone 40mg/100mg; paracentesis ordered -09/10: continued on current regimen, paracentesis pending -09/11: eval for paracentesis done; para not done due to risks>benefits -09/12: need to continue PT -09/14: uptrend of white count, continued on Zosyn # Cholecystitis -US shows cholelithiasis with gallbladder wall thickening; lipase normal, t.bili downtrending -Note that the patient is not a candidate for a cholecystectomy due to his cirrhosis of the liver seen on ultrasound -Zosyn # leukocytosis downward trending # Hypokalemia -potassium replacement protocol CONTINUE WITH PT Code Status: Full code Diet: Sodium-restricted diet OVERALL POOR PROGNOSIS SECONDARY TO CIRRHOSIS SECONDARY TO ALCOHOLISM Date of Service: September 15, 2024 Billing Provider: JACKI VASQUEZ MD Common Visit Codes: [id number] INP/OBS CARE(HIGH) JACKI VASQUEZ MD September 15, 2024 08:29
[2024-09-15] MEDS ORDERED: potassium Cl 40MEQ/1/2NS 520ml 520 ML IV PRN (08:30)
[2024-09-15] MEDS ORDERED: potassium Cl 20 mEq SR tablet PO PRN (08:30)
[2024-09-15] MEDS: potassium Cl 20 mEq SR tablet PO PRN (08:57)
[2024-09-15] MEDS: K and/or MAG REPLACEMENT MC SCH (20:00)
[2024-09-15] MEDS: traMADol 50MG tablet PO PRN (21:28)
[2024-09-16 04:23] LABS: BASOPHILS # (AUTO) 0.1 X10'3 (0-0.2); BASOPHILS % (AUTO) 0.7 % (0-1); EOSINOPHILS # (AUTO) 0.1 X10'3 (0-0.9); EOSINOPHILS % (AUTO) 0.7 % (0-6); HEMATOCRIT 30.2 % (42.0-52.0); HEMOGLOBIN 10.2 g/dl (14.0-17.9); LYMPHOCYTES # (AUTO) 2.6 X10'3 (1.1-4.8); LYMPHOCYTES % (AUTO) 17.6 % (21-51); MEAN CORPUSCULAR HEMOGLOBIN 35.2 PG (27.0-31.0); MEAN CORPUSCULAR HGB CONC 33.7 g/dL (33.0-36.5); MEAN CORPUSCULAR VOLUME 104.3 FL (78-98); MONOCYTES # (AUTO) 0.8 X10'3 (0-0.9); MONOCYTES % (AUTO) 5.5 % (2-12); NEUTROPHILS # (AUTO) 11.3 X10'3 (1.8-7.7); NEUTROPHILS % (AUTO) 75.5 % (42-75); PLATELET COUNT 274 X10'3 (140-440); RED BLOOD COUNT 2.89 X10'6 (4.70-6.10); WHITE BLOOD COUNT 14.9 X10'3 (4.5-11.0)
[2024-09-16 04:37] LABS: ALANINE AMINOTRANSFERASE 52 U/L (12-78); ALBUMIN 1.3 G/DL (3.4-5.0); ALKALINE PHOSPHATASE 269 IU/L (46-116); ANION GAP 6 (8-16); ASPARTATE AMINO TRANSFERASE 114 U/L (10-37); BILIRUBIN,TOTAL 3.7 MG/DL (0.1-1.0); BLOOD UREA NITROGEN 15 MG/DL (7-18); BUN/CREATININE RATIO 21.7 (10.0-20.0); CALCIUM 7.9 MG/DL (8.5-10.1); CHLORIDE 103 MMOL/L (99-107); CREATININE 0.69 MG/DL (0.60-1.10); GLUCOSE 97 MG/DL (70-104); POTASSIUM 4.1 MMOL/L (3.5-5.1); SODIUM 135 MMOL/L (135-145); TOTAL CARBON DIOXIDE 26.2 MMOL/L (24-32); eCRCL 130 ML/MIN; eGFR > 90 ML/MIN
[2024-09-16 04:39] LABS: ALBUMIN/GLOBULIN RATIO 0.3 (1.1-1.5); TOTAL PROTEIN 5.4 G/DL (6.4-8.2)
[2024-09-16] MEDS: magnesium Cl slow-release 64mg tablet PO PRN (04:54)
[2024-09-16 06:00] VITALS: BP 99/67; PULSE 64; RESP 12; TEMP 97.9; O2SAT 99
[2024-09-16 08:00] VITALS: RESP 16; O2SAT 98
[2024-09-16 10:00] VITALS: BP 105/79; PULSE 74; RESP 17; TEMP 97.5; O2SAT 100
--- NOTE | 2024-09-16 15:40 | PROGRESS NOTE ---
Daily Progress Note Providers to CC ~ Antibiotic Timeout Antibiotic Ordered?: Yes Subjective Chief complaint none Review of systems negative for all 10 systems reviewed Objective Vital Signs Date Time Temp Pulse Resp B/P (MAP) Pulse Ox O2 Delivery O2 Flow Rate FiO2 09/16/24 11:38 15 09/16/24 10:00 97.5 74 105/79 (88) 100 Room Air 09/12/24 08:00 0.5 Result Diagram: 09/16/24 0356 09/16/24 0356 General: Generalized weakness, generalized jaundice, awake, A&Ox2, NAD ANSWERS APPROPRIATELY THOUGH SLOWLY HEENT: Normocephalic, PERRLA POSITIVE SCLERA FOR ICTERUS POSITIVE CONJUNCTIVA FOR PALLOR RESPIRATORY Clear to auscultation bilaterally NO RALES RHONCHI CRACKLES OR WHEEZING Cardiovascular: RRR, S1&S2 ABDOMEN PLUS ONE DISTENDED NONTENDER NO FLUID THRILL APPRECIATED NO MASSES APPRECIATED Extremities: No cyanosis/clubbing/or edema Coagulation Studies Laboratory Tests Test 09/10/24 05:28 Prothrombin Time 15.5 SECONDS (9.0-12.0) H INR International Normalized Ratio 1.6 INR Coagulation Comments Problem\Assessment\Plan Problems/Diagnosis: (1) Hepatic encephalopathy # Acute decompensated liver failure, MELD score 22- POA # Hepatic encephalopathy # Alcohol-induced hepatitis # Cirrhosis # Alcohol withdrawal # DTs # Hypokalemia # Hypophosphatemia # Ascites, moderate # LEUKOCYTOSIS -09/08 DTs have resolved discontinue on scheduled Librium, lactulose, potassium replacement protocol, alcohol withdrawal protocol -09/09: start ceftriaxone given moderate upper abd ascites, started propranolol, Lasix/spironolactone 40mg/100mg; paracentesis ordered -09/10: continued on current regimen, paracentesis pending -09/11: eval for paracentesis done; para not done due to risks>benefits -09/12: need to continue PT -09/14: uptrend of white count, continued on Zosyn # Cholecystitis -US shows cholelithiasis with gallbladder wall thickening; lipase normal, t.bili downtrending -Note that the patient is not a candidate for a cholecystectomy due to his cirrhosis of the liver seen on ultrasound -Zosyn # leukocytosis downward trending # Hypokalemia -potassium replacement protocol CONTINUE WITH PT Code Status: Full code Diet: Sodium-restricted diet OVERALL POOR PROGNOSIS SECONDARY TO CIRRHOSIS SECONDARY TO ALCOHOLISM Date of Service: September 16, 2024 Billing Provider: JACKI VASQUEZ MD Common Visit Codes: [id number] INP/OBS CARE(HIGH) JACKI VASQUEZ MD September 16, 2024 15:40
[2024-09-16 18:00] VITALS: BP 112/73; PULSE 79; RESP 17; TEMP 97.8; O2SAT 99
[2024-09-16 20:00] VITALS: RESP 18; O2SAT 96
[2024-09-16 22:00] VITALS: BP 104/71; PULSE 79; RESP 16; TEMP 98.3; O2SAT 98
[2024-09-17 04:27] LABS: BASOPHILS # (AUTO) 0.1 X10'3 (0-0.2); BASOPHILS % (AUTO) 0.6 % (0-1); EOSINOPHILS # (AUTO) 0.1 X10'3 (0-0.9); EOSINOPHILS % (AUTO) 0.7 % (0-6); HEMATOCRIT 31.9 % (42.0-52.0); HEMOGLOBIN 10.7 g/dl (14.0-17.9); LYMPHOCYTES # (AUTO) 2.5 X10'3 (1.1-4.8); LYMPHOCYTES % (AUTO) 13.6 % (21-51); MEAN CORPUSCULAR HEMOGLOBIN 35.1 PG (27.0-31.0); MEAN CORPUSCULAR HGB CONC 33.6 g/dL (33.0-36.5); MEAN CORPUSCULAR VOLUME 104.4 FL (78-98); MONOCYTES # (AUTO) 0.7 X10'3 (0-0.9); MONOCYTES % (AUTO) 3.8 % (2-12); NEUTROPHILS % (AUTO) 81.3 % (42-75); PLATELET COUNT 264 X10'3 (140-440); RED BLOOD COUNT 3.05 X10'6 (4.70-6.10); RED CELL DISTRIBUTION WIDTH 21.6 % (11.5-14.5); WHITE BLOOD COUNT 18.4 X10'3 (4.5-11.0)
[2024-09-17 04:48] LABS: ALANINE AMINOTRANSFERASE 55 U/L (12-78); ALBUMIN 1.5 G/DL (3.4-5.0); ALKALINE PHOSPHATASE 257 IU/L (46-116); ANION GAP 6 (8-16); ASPARTATE AMINO TRANSFERASE 122 U/L (10-37); BILIRUBIN,TOTAL 3.8 MG/DL (0.1-1.0); BLOOD UREA NITROGEN 17 MG/DL (7-18); BUN/CREATININE RATIO 25.4 (10.0-20.0); CALCIUM 8.1 MG/DL (8.5-10.1); CHLORIDE 101 MMOL/L (99-107); CREATININE 0.67 MG/DL (0.60-1.10); GLUCOSE 98 MG/DL (70-104); POTASSIUM 4.2 MMOL/L (3.5-5.1); SODIUM 135 MMOL/L (135-145); TOTAL CARBON DIOXIDE 28.3 MMOL/L (24-32); eCRCL 134 ML/MIN; eGFR > 90 ML/MIN
[2024-09-17 04:55] LABS: ALBUMIN/GLOBULIN RATIO 0.3 (1.1-1.5); TOTAL PROTEIN 6.3 G/DL (6.4-8.2)
[2024-09-17] MEDS: magnesium sulf-water 4G/100mL 100 ML IV PRN (05:23)
[2024-09-17 06:00] VITALS: BP 124/82; PULSE 75; RESP 14; TEMP 97.5; O2SAT 98
[2024-09-17 08:00] VITALS: RESP 17; O2SAT 96
--- NOTE | 2024-09-17 08:40 | PROGRESS NOTE ---
Daily Progress Note Providers to CC ~ Antibiotic Timeout Antibiotic Ordered?: Yes Subjective Chief complaint none Objective Vital Signs Date Time Temp Pulse Resp B/P (MAP) Pulse Ox O2 Delivery O2 Flow Rate FiO2 09/16/24 22:00 98.3 79 16 104/71 (82) 98 Room Air Result Diagram: 09/17/2440309/17/24403 General: Generalized weakness, generalized jaundice, awake, A&Ox2, NAD ANSWERS APPROPRIATELY THOUGH SLOWLY HEENT: Normocephalic, PERRLA POSITIVE SCLERA FOR ICTERUS POSITIVE CONJUNCTIVA FOR PALLOR RESPIRATORY Clear to auscultation bilaterally NO RALES RHONCHI CRACKLES OR WHEEZING Cardiovascular: RRR, S1&S2 ABDOMEN PLUS ONE DISTENDED NONTENDER NO FLUID THRILL APPRECIATED NO MASSES APPRECIATED Extremities: No cyanosis/clubbing/or edema Coagulation Studies Laboratory Tests Test 09/10/24 05:28 Prothrombin Time 15.5 SECONDS (9.0-12.0) H INR International Normalized Ratio 1.6 INR Coagulation Comments Problem\Assessment\Plan Problems/Diagnosis: (1) Hepatic encephalopathy # Acute decompensated liver failure, MELD score 22- POA # Hepatic encephalopathy # Alcohol-induced hepatitis # Cirrhosis # Alcohol withdrawal # DTs # Hypokalemia # Hypophosphatemia # Ascites, moderate # LEUKOCYTOSIS -09/08 DTs have resolved discontinue on scheduled Librium, lactulose, potassium replacement protocol, alcohol withdrawal protocol -09/09: start ceftriaxone given moderate upper abd ascites, started propranolol, Lasix/spironolactone 40mg/100mg; paracentesis ordered -09/10: continued on current regimen, paracentesis pending -09/11: eval for paracentesis done; para not done due to risks>benefits -09/12: need to continue PT -09/14: uptrend of white count, continued on Zosyn # Cholecystitis -US shows cholelithiasis with gallbladder wall thickening; lipase normal, t.bili downtrending -Note that the patient is not a candidate for a cholecystectomy due to his cirrhosis of the liver seen on ultrasound -Zosyn # leukocytosis increased again I ordered blood cultures chest x-ray UA # Hypokalemia -potassium replacement protocol # hypomagnesemia replace # severe protein calorie malnutrition Albumin is only 1.5 Poor prognostic sign CONTINUE WITH PT Code Status: Full code Diet: Sodium-restricted diet OVERALL POOR PROGNOSIS SECONDARY TO CIRRHOSIS SECONDARY TO ALCOHOLISM Date of Service: September 17, 2024 Billing Provider: JACKI VASQUEZ MD Common Visit Codes: [id number] INP/OBS CARE(HIGH) JACKI VASQUEZ MD September 17, 2024 08:40
[2024-09-17 10:00] VITALS: BP 134/102; PULSE 92; RESP 17; TEMP 96.6; O2SAT 99
--- NOTE | 2024-09-17 10:20 | RADIOLOGY REPORT ---
Procedure: US ULTRASOUND OF ABDOMEN 09/17/2024 09:12 AM Indication: Ascites Comparison: US ULTRASOUND OF ABDOMEN on DOS: 09/06/24 Technique: Sonogram of the all 4 abdominal quadrants was performed for fluid survey. FINDINGS: No fluid is throughout the abdomen IMPRESSION: No ascites.
--- NOTE | 2024-09-17 11:51 | RADIOLOGY REPORT ---
EXAM: DI CHEST,TWO VIEWS CLINICAL HISTORY: Leukocytosis COMPARISON: None TECHNIQUE: Frontal and lateral view of the chest was obtained FINDINGS: Lines and Tubes: None Lungs: No focal consolidation. Pleura: No effusion. No pneumothorax. Cardiomediastinal contours: Unremarkable Bones: No acute osseous abnormality. IMPRESSION: No acute cardiopulmonary disease.
[2024-09-17] MEDS: magnesium sulf-water 2g/50mL 50 ML IV PRN (11:59)
[2024-09-17 18:00] VITALS: BP 109/76; PULSE 96; RESP 17; TEMP 98.3; O2SAT 97
[2024-09-17 20:00] VITALS: RESP 17; O2SAT 97
[2024-09-17 22:00] VITALS: BP 120/83; PULSE 102; RESP 20; TEMP 98.7; O2SAT 95
[2024-09-18 05:25] LABS: MAGNESIUM 1.4 MG/DL (1.5-2.4)
[2024-09-18 06:00] VITALS: BP 109/65; PULSE 84; RESP 16; TEMP 98; O2SAT 97
[2024-09-18 08:00] VITALS: RESP 17; O2SAT 97
[2024-09-18 10:00] VITALS: BP 113/84; PULSE 84; RESP 17; TEMP 97.9; O2SAT 96
[2024-09-18] MEDS: magnesium sulf-water 4G/100mL 100 ML IV ONE (12:38)
--- NOTE | 2024-09-18 13:36 | PROGRESS NOTE ---
Daily Progress Note Providers to CC ~ Antibiotic Timeout Antibiotic Ordered?: Yes Subjective Chief complaint I have a rash in in my private area and I really want to tested for STDs Review of systems negative for all 10 systems reviewed Objective Vital Signs Date Time Temp Pulse Resp B/P (MAP) Pulse Ox O2 Delivery O2 Flow Rate FiO2 09/18/24 06:00 98.0 84 16 109/65 (80) 97 Room Air Result Diagram: 09/17/24 0404 09/18/24 0418 General: Generalized weakness, generalized jaundice is decreasing, awake, A&Ox3, NAD HEENT: Normocephalic, PERRLA POSITIVE SCLERA FOR ICTERUS is improving POSITIVE CONJUNCTIVA FOR PALLOR RESPIRATORY Clear to auscultation bilaterally NO RALES RHONCHI CRACKLES OR WHEEZING Cardiovascular: RRR, S1&S2 ABDOMEN PLUS ONE DISTENDED NONTENDER NO FLUID THRILL APPRECIATED NO MASSES APPRECIATED Extremities: No cyanosis/clubbing/or edema Coagulation Studies Laboratory Tests Test 09/10/24 05:28 Prothrombin Time 15.5 SECONDS (9.0-12.0) H INR International Normalized Ratio 1.6 INR Coagulation Comments Problem\Assessment\Plan Problems/Diagnosis: (1) Hepatic encephalopathy # Acute decompensated liver failure, MELD score 22- POA # Hepatic encephalopathy # Alcohol-induced hepatitis # Cirrhosis # Alcohol withdrawal # DTs # Hypokalemia # Hypophosphatemia # Ascites, moderate # LEUKOCYTOSIS WORSENING # GROIN RASH PROBABLY HERPES SUPERIMPOSED WITH ERWIN I HAVE ORDERED A FULL STD PANEL START THE PATIENT ON ACYCLOVIR AND NYSTATIN POWDER # Cholecystitis -US shows cholelithiasis with gallbladder wall thickening; lipase normal, t.bili downtrending -Note that the patient is not a candidate for a cholecystectomy due to his cirrhosis of the liver seen on ultrasound -Zosyn CONTINUE # leukocytosis increased again I ordered blood cultures chest x-ray UA # Hypokalemia -potassium replacement protocol # hypomagnesemia replace with IV magnesium has a improved only slightly from 1- 1.4 # severe protein calorie malnutrition Albumin is only 1.5 Poor prognostic sign CONTINUE WITH PT Code Status: Full code Diet: Sodium-restricted diet OVERALL POOR PROGNOSIS SECONDARY TO CIRRHOSIS SECONDARY TO ALCOHOLISM Date of Service: September 18, 2024 Billing Provider: JACKI VASQUEZ MD Common Visit Codes: [id number] INP/OBS CARE(HIGH) JACKI VASQUEZ MD September 18, 2024 13:36
[2024-09-18 14:41] LABS: BASOPHILS # (AUTO) 0.1 X10'3 (0-0.2); BASOPHILS % (AUTO) 0.5 % (0-1); EOSINOPHILS # (AUTO) 0.1 X10'3 (0-0.9); EOSINOPHILS % (AUTO) 0.7 % (0-6); HEMATOCRIT 29.7 % (42.0-52.0); LYMPHOCYTES # (AUTO) 2.5 X10'3 (1.1-4.8); LYMPHOCYTES % (AUTO) 15.1 % (21-51); MEAN CORPUSCULAR HEMOGLOBIN 35.4 PG (27.0-31.0); MEAN CORPUSCULAR HGB CONC 33.7 g/dL (33.0-36.5); MEAN CORPUSCULAR VOLUME 104.9 FL (78-98); MEAN PLATELET VOLUME 8.5 FL (7.4-10.4); MONOCYTES # (AUTO) 0.9 X10'3 (0-0.9); MONOCYTES % (AUTO) 5.4 % (2-12); NEUTROPHILS # (AUTO) 13.1 X10'3 (1.8-7.7); NEUTROPHILS % (AUTO) 78.3 % (42-75); PLATELET COUNT 235 X10'3 (140-440); RED BLOOD COUNT 2.83 X10'6 (4.70-6.10); RED CELL DISTRIBUTION WIDTH 21.1 % (11.5-14.5); WHITE BLOOD COUNT 16.8 X10'3 (4.5-11.0)
[2024-09-18 15:30] LABS: ANISOCYTOSIS 3+; PLATELET ESTIMATE NORMAL; TOTAL CELLS COUNTED 100
[2024-09-18 15:31] LABS: BURR CELLS FEW; STOMATOCYTES 1+; TARGET CELLS 2+; TEAR DROP CELLS FEW
[2024-09-18 18:00] VITALS: BP 101/57; PULSE 101; RESP 16; TEMP 98.3; O2SAT 95
[2024-09-18 20:00] VITALS: RESP 16; O2SAT 95
[2024-09-18] MEDS: nystatin 15 GM powder TP SCH (20:27)
[2024-09-18 22:00] VITALS: BP 116/75; PULSE 100; RESP 16; TEMP 99.2; O2SAT 96
[2024-09-19 06:20] LABS: BASOPHILS # (AUTO) 0.1 X10'3 (0-0.2); BASOPHILS % (AUTO) 0.4 % (0-1); EOSINOPHILS # (AUTO) 0.1 X10'3 (0-0.9); EOSINOPHILS % (AUTO) 0.5 % (0-6); HEMATOCRIT 28.6 % (42.0-52.0); HEMOGLOBIN 9.7 g/dl (14.0-17.9); LYMPHOCYTES # (AUTO) 2.4 X10'3 (1.1-4.8); MEAN CORPUSCULAR HEMOGLOBIN 35.7 PG (27.0-31.0); MEAN PLATELET VOLUME 8.7 FL (7.4-10.4); MONOCYTES % (AUTO) 5.8 % (2-12); NEUTROPHILS # (AUTO) 13.8 X10'3 (1.8-7.7); NEUTROPHILS % (AUTO) 79.3 % (42-75); PLATELET COUNT 226 X10'3 (140-440); RED BLOOD COUNT 2.72 X10'6 (4.70-6.10); RED CELL DISTRIBUTION WIDTH 20.5 % (11.5-14.5); WHITE BLOOD COUNT 17.4 X10'3 (4.5-11.0)
[2024-09-19 06:27] VITALS: BP 116/78; PULSE 91; RESP 18; TEMP 98.9; O2SAT 95
[2024-09-19 06:36] LABS: MAGNESIUM 1.4 MG/DL (1.5-2.4); POTASSIUM 3.7 MMOL/L (3.5-5.1)
[2024-09-19 06:52] LABS: HIV ANTIBODY 1&2 RAPID NON-REACTIVE (Neg)
[2024-09-19 07:57] LABS: ANISOCYTOSIS 3+; PLATELET ESTIMATE NORMAL; TARGET CELLS 1+
[2024-09-19 08:00] VITALS: RESP 17; O2SAT 97
[2024-09-19 10:00] VITALS: BP 119/97; PULSE 89; RESP 12; TEMP 97.6; O2SAT 97
--- NOTE | 2024-09-19 10:52 | PROGRESS NOTE ---
Daily Progress Note Providers to CC ~ Antibiotic Timeout Antibiotic Ordered?: Yes Subjective Chief complaint I need something stronger for pain this Toradol is not working any something IV that will really take away the pain I am in so much pain I do not know what to do and the pain is everywhere especially in my groin area Review of systems negative for all 10 systems reviewed Objective Vital Signs Date Time Temp Pulse Resp B/P (MAP) Pulse Ox O2 Delivery O2 Flow Rate FiO2 09/19/24 06:27 98.9 91 18 116/78 (91) 95 Room Air Result Diagram: 09/19/2419 09/19/24518 General: Generalized weakness, generalized jaundice is decreasing, awake, A&Ox3, NAD HEENT: Normocephalic, PERRLA POSITIVE SCLERA FOR ICTERUS is improving POSITIVE CONJUNCTIVA FOR PALLOR RESPIRATORY Clear to auscultation bilaterally NO RALES RHONCHI CRACKLES OR WHEEZING Cardiovascular: RRR, S1&S2 ABDOMEN PLUS ONE DISTENDED NONTENDER NO FLUID THRILL APPRECIATED NO MASSES APPRECIATED Extremities: No cyanosis/clubbing/or edema Patient is severely excoriated red skin in the entire groin as well as buttock Coagulation Studies Laboratory Tests Test 09/10/24 05:28 Prothrombin Time 15.5 SECONDS (9.0-12.0) H INR International Normalized Ratio 1.6 INR Coagulation Comments Problem\Assessment\Plan Problems/Diagnosis: (1) Hepatic encephalopathy # Acute decompensated liver failure, MELD score 22- POA # Hepatic encephalopathy # Alcohol-induced hepatitis longstanding history of EtOH abuse # Cirrhosis # Alcohol withdrawal # DTs # Hypokalemia # Hypophosphatemia # Ascites, moderate # LEUKOCYTOSIS WORSENING Etiology unclear I have requested a CT of the chest abdomen and pelvis Chest x-ray and urine negative Blood cultures ordered on the not done spoke to RN to get it done today # GROIN RASH PROBABLY HERPES SUPERIMPOSED WITH ERWIN I HAVE ORDERED A FULL STD PANEL START THE PATIENT ON ACYCLOVIR AND NYSTATIN POWDER # Cholecystitis -US shows cholelithiasis with gallbladder wall thickening; lipase normal, t.bili downtrending -Note that the patient is not a candidate for a cholecystectomy due to his cirrhosis of the liver seen on ultrasound -Zosyn CONTINUE # leukocytosis increased again I ordered blood cultures chest x-ray UA # excoriated red skin ran groin Get wound care consult # Hypokalemia -potassium replacement protocol # hypomagnesemia replace per protocol Continue to monitor # severe protein calorie malnutrition Albumin is only 1.5 Poor prognostic sign Started the patient on ensure # pain add morphine and [place] p.r.n. for pain control CONTINUE WITH PT Code Status: Full code Diet: Sodium-restricted diet OVERALL POOR PROGNOSIS SECONDARY TO CIRRHOSIS SECONDARY TO ALCOHOLISM Date of Service: September 19, 2024 Billing Provider: JACKI VASQUEZ MD Common Visit Codes: [id number] INP/OBS CARE(HIGH) JACKI VASQUEZ MD September 19, 2024 10:52
[2024-09-19] MEDS ORDERED: iohexol 300mg/ml 100ml inj. ONE (11:05)
[2024-09-19] MEDS: NUT.TX.IMPAIRED DIGEST FXN (Ensure Clear) 237 ML PO SCH (13:00)
[2024-09-19] MEDS ORDERED: HYDROcodone/acetaminophen 5mg/325mg tablet PO PRN (13:05)
[2024-09-19] MEDS: IOHEXOL 12MG/ML oral solution 500 ML BOTTLE PO ONE (13:20)
[2024-09-19] MEDS: morphine 2 MG/ML inj. syringe IV PRN (13:29)
--- NOTE | 2024-09-19 16:38 | RADIOLOGY REPORT ---
CT CT CHEST ABDOMEN PELVIS W/ IV ORAL CONTRAST INDICATION: Leukocytosis EXAM DATE: 09/19/2024 03:15 PM COMPARISON: CT CHEST ABDOMEN PELVIS on DOS: 06/27/22 RADIATION DOSE: CTDIvol: 11 mGy, DLP: 1019 mGy*cm PROCEDURE: Helical CT images were obtained of the chest, abdomen, and pelvis with intravenous contras t. Sagittal and coronal reconstructions are provided. ORAL CONTRAST: yes ADDITIONAL IMAGES / REFORMATS: None All CT scans at this medical facility are performed using dose modulation techniques as appropriate t o a performed exam including the following: Automated exposure control was utilized; adjustment of th e MA and/or KV according to patient size; and use of iterative reconstruction technique. FINDINGS: CHEST: BONES: Normal. CHEST WALL: Normal. SOFT TISSUES:Normal. MEDIASTINUM: Normal. HEART: Normal. VESSELS: Normal. LYMPH NODES: Normal. PLEURA: Normal. AIRWAYS: Normal. LUNG: Normal. ABDOMEN AND PELVIS: BONES: Left hip arthroplasty is seen. LIVER: Normal. GALLBLADDER AND BILIARY TREE: Gallstone. No intra- or extrahepatic biliary ductal dilation. PANCREAS: Normal. SPLEEN: Normal. BOWEL: Normal. Appendix not seen. ADRENALS: Normal. KIDNEYS AND URETER: Normal. BLADDER: Normal. REPRODUCTIVE ORGANS: Normal. LYMPH NODES:No lymphadenopathy. PERITONEUM: No ascites or free air. No other fluid collection. Trace pelvic fluid. VESSELS: Normal RETROPERITONEUM: Normal. ABDOMINAL WALL: Normal. IMPRESSION: No acute intrathoracic or intraabdominal abnormality. No focal fluid collection. Cholelithiasis.
[2024-09-19 20:00] VITALS: BP 118/73; PULSE 91; RESP 17; RESP 18; TEMP 98.5; O2SAT 96; O2SAT 98
[2024-09-19 22:00] VITALS: BP 128/92; PULSE 104; RESP 18; TEMP 99; O2SAT 98
[2024-09-20 05:49] LABS: BASOPHILS # (AUTO) 0.1 X10'3 (0-0.2); BASOPHILS % (AUTO) 0.5 % (0-1); EOSINOPHILS # (AUTO) 0.1 X10'3 (0-0.9); EOSINOPHILS % (AUTO) 0.6 % (0-6); HEMATOCRIT 29.6 % (42.0-52.0); LYMPHOCYTES # (AUTO) 1.2 X10'3 (1.1-4.8); LYMPHOCYTES % (AUTO) 9.8 % (21-51); MEAN CORPUSCULAR HEMOGLOBIN 35.6 PG (27.0-31.0); MEAN CORPUSCULAR HGB CONC 33.7 g/dL (33.0-36.5); MEAN CORPUSCULAR VOLUME 105.6 FL (78-98); MEAN PLATELET VOLUME 8.5 FL (7.4-10.4); MONOCYTES # (AUTO) 1.2 X10'3 (0-0.9); MONOCYTES % (AUTO) 9.6 % (2-12); NEUTROPHILS % (AUTO) 79.5 % (42-75); PLATELET COUNT 252 X10'3 (140-440); RED CELL DISTRIBUTION WIDTH 20.6 % (11.5-14.5); WHITE BLOOD COUNT 12.6 X10'3 (4.5-11.0)
[2024-09-20 06:00] VITALS: BP 126/82; PULSE 101; RESP 18; TEMP 98.7; O2SAT 95
[2024-09-20 06:13] LABS: ALANINE AMINOTRANSFERASE 48 U/L (12-78); ALBUMIN 1.6 G/DL (3.4-5.0); ALKALINE PHOSPHATASE 239 IU/L (46-116); ANION GAP 5 (8-16); ASPARTATE AMINO TRANSFERASE 106 U/L (10-37); BILIRUBIN,TOTAL 2.8 MG/DL (0.1-1.0); BLOOD UREA NITROGEN 10 MG/DL (7-18); BUN/CREATININE RATIO 13.7 (10.0-20.0); CALCIUM 8.2 MG/DL (8.5-10.1); CHLORIDE 99 MMOL/L (99-107); CREATININE 0.73 MG/DL (0.60-1.10); GLUCOSE 109 MG/DL (70-104); MAGNESIUM 1.3 MG/DL (1.5-2.4); POTASSIUM 4.2 MMOL/L (3.5-5.1); SODIUM 133 MMOL/L (135-145); TOTAL CARBON DIOXIDE 28.8 MMOL/L (24-32); eCRCL 123 ML/MIN; eGFR > 90 ML/MIN
[2024-09-20 06:18] LABS: ALBUMIN/GLOBULIN RATIO 0.3 (1.1-1.5); TOTAL PROTEIN 6.7 G/DL (6.4-8.2)
[2024-09-20 08:00] VITALS: RESP 17; O2SAT 97
[2024-09-20] MEDS: HYDROcodone/acetaminophen 5mg/325mg tablet PO PRN (09:07)
[2024-09-20 11:00] VITALS: BP 122/83; PULSE 73; RESP 18; TEMP 97.9; O2SAT 97
[2024-09-20] MEDS ORDERED: magnesium sulf-water 2g/50mL 50 ML IV PRN (13:50)
[2024-09-20] MEDS ORDERED: magnesium sulf-water 4G/100mL 100 ML IV PRN (13:50)
--- NOTE | 2024-09-20 14:54 | PROGRESS NOTE ---
Daily Progress Note Providers to CC ~ Antibiotic Timeout Antibiotic Ordered?: Yes Subjective Chief complaint-I need more pain meds Review of systems negative for all 10 systems reviewed Objective Vital Signs Date Time Temp Pulse Resp B/P (MAP) Pulse Ox O2 Delivery O2 Flow Rate FiO2 09/20/24 08:00 17 97 Room Air 09/20/24 06:00 98.7 101 126/82 (97) Result Diagram: 09/20/24 0511 09/20/24 0511 General: Generalized weakness, generalized jaundice is decreasing, awake, A&Ox3, NAD HEENT: Normocephalic, PERRLA POSITIVE SCLERA FOR ICTERUS is improving POSITIVE CONJUNCTIVA FOR PALLOR RESPIRATORY Clear to auscultation bilaterally NO RALES RHONCHI CRACKLES OR WHEEZING Cardiovascular: RRR, S1&S2 ABDOMEN PLUS ONE DISTENDED NONTENDER NO FLUID THRILL APPRECIATED NO MASSES APPRECIATED Extremities: No cyanosis/clubbing/or edema Patient is severely excoriated red skin in the entire groin as well as buttock yesterday which is difficult to see today as he has got a large quantity of nystatin powder all over himself which I actually think we will help him heal better Coagulation Studies Laboratory Tests Test 09/10/24 05:28 Prothrombin Time 15.5 SECONDS (9.0-12.0) H INR International Normalized Ratio 1.6 INR Coagulation Comments Problem\Assessment\Plan Problems/Diagnosis: (1) Hepatic encephalopathy # Acute decompensated liver failure, MELD score 22- POA # Hepatic encephalopathy # Alcohol-induced hepatitis longstanding history of EtOH abuse # Cirrhosis # Alcohol withdrawal # DTs # Hypokalemia # Hypophosphatemia # Ascites, moderate # LEUKOCYTOSIS improving Etiology unclear I have requested a CT of the chest abdomen and pelvis which is negative except for cholelithiasis Chest x-ray and urine negative Blood cultures ordered on the not done spoke to RN to get it done today # GROIN RASH PROBABLY HERPES SUPERIMPOSED WITH ERWIN I HAVE ORDERED A FULL STD PANEL START THE PATIENT ON ACYCLOVIR AND NYSTATIN POWDER # Cholecystitis -US shows cholelithiasis with gallbladder wall thickening; lipase normal, t.bili downtrending -Note that the patient is not a candidate for a cholecystectomy due to his cirrhosis of the liver seen on ultrasound -Zosyn CONTINUE # leukocytosis increased again I ordered blood cultures chest x-ray UA # excoriated red skin ran groin Get wound care consult # Hypokalemia -potassium replacement protocol # hypomagnesemia replace per protocol Continue to monitor # severe protein calorie malnutrition Albumin is only 1.5 Poor prognostic sign Started the patient on ensure # pain add morphine and [place] p.r.n. for pain control CONTINUE WITH PT Code Status: Full code Diet: Sodium-restricted diet OVERALL POOR PROGNOSIS SECONDARY TO CIRRHOSIS SECONDARY TO ALCOHOLISM Date of Service: September 20, 2024 Billing Provider: JACKI VASQUEZ MD Common Visit Codes: [id number] INP/OBS CARE(HIGH) JACKI VASQUEZ MD September 20, 2024 14:54
[2024-09-20] MEDS: magnesium sulf-water 4G/100mL 100 ML IV ONE (14:55)
[2024-09-20 18:00] VITALS: BP 111/69; PULSE 113; RESP 19; TEMP 98.4; O2SAT 95
[2024-09-20 22:00] VITALS: BP 104/67; PULSE 79; RESP 20; TEMP 97.9; O2SAT 92
[2024-09-21 05:20] LABS: BASOPHILS # (AUTO) 0.1 X10'3 (0-0.2); BASOPHILS % (AUTO) 0.8 % (0-1); EOSINOPHILS # (AUTO) 0.1 X10'3 (0-0.9); EOSINOPHILS % (AUTO) 0.8 % (0-6); HEMATOCRIT 32.3 % (42.0-52.0); HEMOGLOBIN 10.9 g/dl (14.0-17.9); LYMPHOCYTES # (AUTO) 2.2 X10'3 (1.1-4.8); LYMPHOCYTES % (AUTO) 16.3 % (21-51); MEAN CORPUSCULAR HEMOGLOBIN 35.5 PG (27.0-31.0); MEAN CORPUSCULAR HGB CONC 33.7 g/dL (33.0-36.5); MEAN CORPUSCULAR VOLUME 105.3 FL (78-98); MONOCYTES # (AUTO) 1.5 X10'3 (0-0.9); MONOCYTES % (AUTO) 11.5 % (2-12); NEUTROPHILS # (AUTO) 9.4 X10'3 (1.8-7.7); NEUTROPHILS % (AUTO) 70.6 % (42-75); PLATELET COUNT 280 X10'3 (140-440); RED BLOOD COUNT 3.07 X10'6 (4.70-6.10); RED CELL DISTRIBUTION WIDTH 19.8 % (11.5-14.5); WHITE BLOOD COUNT 13.4 X10'3 (4.5-11.0)
[2024-09-21 05:28] LABS: ALANINE AMINOTRANSFERASE 51 U/L (12-78); ALBUMIN 1.8 G/DL (3.4-5.0); ALKALINE PHOSPHATASE 267 IU/L (46-116); ANION GAP 3 (8-16); ASPARTATE AMINO TRANSFERASE 112 U/L (10-37); BILIRUBIN,TOTAL 2.8 MG/DL (0.1-1.0); BLOOD UREA NITROGEN 11 MG/DL (7-18); BUN/CREATININE RATIO 13.9 (10.0-20.0); CALCIUM 8.6 MG/DL (8.5-10.1); CHLORIDE 97 MMOL/L (99-107); CREATININE 0.79 MG/DL (0.60-1.10); GLUCOSE 95 MG/DL (70-104); MAGNESIUM 1.6 MG/DL (1.5-2.4); POTASSIUM 3.8 MMOL/L (3.5-5.1); SODIUM 134 MMOL/L (135-145); TOTAL CARBON DIOXIDE 33.8 MMOL/L (24-32); eCRCL 113 ML/MIN; eGFR > 90 ML/MIN
[2024-09-21 05:30] LABS: ALBUMIN/GLOBULIN RATIO 0.3 (1.1-1.5); TOTAL PROTEIN 7.4 G/DL (6.4-8.2)
[2024-09-21 07:16] VITALS: BP 105/75; PULSE 92; RESP 14; TEMP 98; O2SAT 95
[2024-09-21 08:00] VITALS: RESP 18
--- NOTE | 2024-09-21 10:21 | PROGRESS NOTE ---
Daily Progress Note Providers to CC ~ Antibiotic Timeout Antibiotic Ordered?: Yes Subjective Chief complaint none Objective Vital Signs Date Time Temp Pulse Resp B/P (MAP) Pulse Ox O2 Delivery O2 Flow Rate FiO2 09/21/24 09:27 16 09/21/24 07:16 98.0 92 105/75 (85) 95 Room Air 09/20/24 20:00 0.5 Result Diagram: 09/21/2444509/21/24445 General: Generalized weakness, generalized jaundice is decreasing, awake, A&Ox3, NAD HEENT: Normocephalic, PERRLA POSITIVE SCLERA FOR ICTERUS is improving POSITIVE CONJUNCTIVA FOR PALLOR RESPIRATORY Clear to auscultation bilaterally NO RALES RHONCHI CRACKLES OR WHEEZING Cardiovascular: RRR, S1&S2 ABDOMEN PLUS ONE DISTENDED NONTENDER NO FLUID THRILL APPRECIATED NO MASSES APPRECIATED Extremities: No cyanosis/clubbing/or edema Patient is severely excoriated red skin in the entire groin as well as buttock with hyperpigmentation. Coagulation Studies Laboratory Tests Test 09/10/24 05:28 Prothrombin Time 15.5 SECONDS (9.0-12.0) H INR International Normalized Ratio 1.6 INR Coagulation Comments Problem\Assessment\Plan Problems/Diagnosis: (1) Hepatic encephalopathy # Acute decompensated liver failure, MELD score 22- POA # Hepatic encephalopathy # Alcohol-induced hepatitis longstanding history of EtOH abuse # Cirrhosis # Alcohol withdrawal # DTs # Hypokalemia # Hypophosphatemia # Ascites, moderate # LEUKOCYTOSIS improving Etiology unclear I have requested a CT of the chest abdomen and pelvis which is negative except for cholelithiasis Chest x-ray and urine negative Blood cultures ordered on the not done spoke to RN to get it done today # GROIN RASH PROBABLY HERPES SUPERIMPOSED WITH ERWIN I HAVE ORDERED A FULL STD PANEL START THE PATIENT ON ACYCLOVIR AND NYSTATIN POWDER # Cholecystitis -US shows cholelithiasis with gallbladder wall thickening; lipase normal, t.bili downtrending -Note that the patient is not a candidate for a cholecystectomy due to his cirrhosis of the liver seen on ultrasound -Zosyn CONTINUE # leukocytosis increased again I ordered blood cultures chest x-ray UA # excoriated red skin ran groin Get wound care consult # Hypokalemia -potassium replacement protocol # hypomagnesemia replace per protocol Continue to monitor # severe protein calorie malnutrition Albumin is only 1.5 Poor prognostic sign Started the patient on ensure # pain add morphine and [place] p.r.n. for pain control CONTINUE WITH PT Code Status: Full code Diet: Sodium-restricted diet OVERALL POOR PROGNOSIS SECONDARY TO CIRRHOSIS SECONDARY TO ALCOHOLISM Requested discharge planning consult Date of Service: September 21, 2024 Billing Provider: JACKI VASQUEZ MD Common Visit Codes: [id number] INP/OBS CARE(HIGH) JACKI VASQUEZ MD September 21, 2024 10:21
[2024-09-21 12:05] VITALS: BP 122/89; PULSE 108; RESP 16; TEMP 97.3; O2SAT 97
[2024-09-21] MEDS: magnesium sulf-water 4G/100mL 100 ML IV ONE (14:25)
[2024-09-21 18:30] VITALS: BP 107/77; PULSE 85; RESP 19; TEMP 97.6; O2SAT 94
[2024-09-21 20:00] VITALS: RESP 19; O2SAT 94
[2024-09-21 22:00] VITALS: BP 132/93; PULSE 91; RESP 18; TEMP 98.7; O2SAT 97
[2024-09-21] MEDS: morphine 4 MG/ML inj SYRINge IV PRN (22:17)
[2024-09-22 06:00] VITALS: BP 130/95; PULSE 88; RESP 18; TEMP 98; O2SAT 96
[2024-09-22 06:08] LABS: BASOPHILS # (AUTO) 0.1 X10'3 (0-0.2); BASOPHILS % (AUTO) 1.2 % (0-1); EOSINOPHILS # (AUTO) 0.1 X10'3 (0-0.9); EOSINOPHILS % (AUTO) 1.1 % (0-6); HEMATOCRIT 30.3 % (42.0-52.0); HEMOGLOBIN 10.3 g/dl (14.0-17.9); LYMPHOCYTES # (AUTO) 1.9 X10'3 (1.1-4.8); LYMPHOCYTES % (AUTO) 17.4 % (21-51); MEAN CORPUSCULAR HEMOGLOBIN 35.7 PG (27.0-31.0); MEAN CORPUSCULAR HGB CONC 33.9 g/dL (33.0-36.5); MEAN CORPUSCULAR VOLUME 105.2 FL (78-98); MONOCYTES # (AUTO) 1.5 X10'3 (0-0.9); MONOCYTES % (AUTO) 13.4 % (2-12); NEUTROPHILS # (AUTO) 7.3 X10'3 (1.8-7.7); NEUTROPHILS % (AUTO) 66.9 % (42-75); PLATELET COUNT 291 X10'3 (140-440); RED BLOOD COUNT 2.88 X10'6 (4.70-6.10); RED CELL DISTRIBUTION WIDTH 19.3 % (11.5-14.5)
[2024-09-22 06:30] LABS: ALANINE AMINOTRANSFERASE 49 U/L (12-78); ALBUMIN 1.6 G/DL (3.4-5.0); ALBUMIN/GLOBULIN RATIO 0.3 (1.1-1.5); ALKALINE PHOSPHATASE 234 IU/L (46-116); ANION GAP 4 (8-16); ASPARTATE AMINO TRANSFERASE 96 U/L (10-37); BILIRUBIN,TOTAL 2.4 MG/DL (0.1-1.0); BLOOD UREA NITROGEN 9 MG/DL (7-18); BUN/CREATININE RATIO 9.8 (10.0-20.0); CALCIUM 8.2 MG/DL (8.5-10.1); CHLORIDE 99 MMOL/L (99-107); CREATININE 0.92 MG/DL (0.60-1.10); GLUCOSE 106 MG/DL (70-104); MAGNESIUM 1.4 MG/DL (1.5-2.4); POTASSIUM 3.7 MMOL/L (3.5-5.1); SODIUM 134 MMOL/L (135-145); TOTAL CARBON DIOXIDE 30.6 MMOL/L (24-32); TOTAL PROTEIN 6.8 G/DL (6.4-8.2); eCRCL 97 ML/MIN; eGFR > 90 ML/MIN
[2024-09-22] MEDS: magnesium Cl slow-release 64mg tablet PO PRN (09:55)
[2024-09-22 10:00] VITALS: BP 118/81; PULSE 84; RESP 19; TEMP 98.1; O2SAT 97
--- NOTE | 2024-09-22 11:40 | PROGRESS NOTE ---
Daily Progress Note Providers to CC ~ Antibiotic Timeout Antibiotic Ordered?: Yes Subjective No acute events overnight. Patient examined at bedside. No new complaints. Patient denies chest pain, sob, palpitations, abdominal pain, n/v/d. Vss, labs unremarkable. Pending rehab, continued PT. 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, no focal deficits Musculoskeletal: No paraspinal muscle tenderness, no muscle spasm Skin: Warm and intact Coagulation Studies Laboratory Tests Test 09/10/24 05:28 Prothrombin Time 15.5 SECONDS (9.0-12.0) H INR International Normalized Ratio 1.6 INR Coagulation Comments Problem\Assessment\Plan Problems/Diagnosis: (1) Hepatic encephalopathy # Acute decompensated liver failure, MELD score 22- POA # Hepatic encephalopathy # Alcohol-induced hepatitis longstanding history of EtOH abuse # Cirrhosis # Alcohol withdrawal # DTs # Hypokalemia # Hypophosphatemia # Ascites, moderate # LEUKOCYTOSIS improving Etiology unclear I have requested a CT of the chest abdomen and pelvis which is negative except for cholelithiasis Chest x-ray and urine negative Blood cultures ordered on the not done spoke to RN to get it done today # GROIN RASH PROBABLY HERPES SUPERIMPOSED WITH ERWIN I HAVE ORDERED A FULL STD PANEL START THE PATIENT ON ACYCLOVIR AND NYSTATIN POWDER # Cholecystitis -US shows cholelithiasis with gallbladder wall thickening; lipase normal, t.bili downtrending -Note that the patient is not a candidate for a cholecystectomy due to his cirrhosis of the liver seen on ultrasound -Zosyn # excoriated red skin ran groin -wound care consult # Hypokalemia -potassium replacement protocol # hypomagnesemia replace per protocol Continue to monitor # severe protein calorie malnutrition Albumin is only 1.5 Poor prognostic sign Started the patient on ensure # pain add morphine and [place] p.r.n. for pain control CONTINUE WITH PT Code Status: Full code Diet: Sodium-restricted diet OVERALL POOR PROGNOSIS SECONDARY TO CIRRHOSIS SECONDARY TO ALCOHOLISM Requested discharge planning consult Date of Service: September 22, 2024 Billing Provider: PARAM LAY Common Visit Codes: [id number] INP/OBS CARE(MOD) PARAM LAY September 22, 2024 11:40
[2024-09-22 18:30] VITALS: BP 122/83; PULSE 73; RESP 17; TEMP 98.3; O2SAT 99
[2024-09-22 20:00] VITALS: RESP 17; O2SAT 97
[2024-09-22 22:00] VITALS: BP 137/97; PULSE 78; RESP 19; TEMP 98; O2SAT 99
[2024-09-23 05:41] LABS: BASOPHILS # (AUTO) 0.2 X10'3 (0-0.2); BASOPHILS % (AUTO) 1.8 % (0-1); EOSINOPHILS # (AUTO) 0.2 X10'3 (0-0.9); HEMATOCRIT 30.6 % (42.0-52.0); HEMOGLOBIN 10.3 g/dl (14.0-17.9); LYMPHOCYTES # (AUTO) 2.4 X10'3 (1.1-4.8); LYMPHOCYTES % (AUTO) 26.7 % (21-51); MEAN CORPUSCULAR HEMOGLOBIN 35.3 PG (27.0-31.0); MEAN CORPUSCULAR HGB CONC 33.6 g/dL (33.0-36.5); MEAN CORPUSCULAR VOLUME 105.1 FL (78-98); MEAN PLATELET VOLUME 7.8 FL (7.4-10.4); MONOCYTES # (AUTO) 1.4 X10'3 (0-0.9); MONOCYTES % (AUTO) 15.7 % (2-12); NEUTROPHILS # (AUTO) 4.9 X10'3 (1.8-7.7); NEUTROPHILS % (AUTO) 53.8 % (42-75); PLATELET COUNT 312 X10'3 (140-440); RED BLOOD COUNT 2.91 X10'6 (4.70-6.10); RED CELL DISTRIBUTION WIDTH 19.9 % (11.5-14.5); WHITE BLOOD COUNT 9.1 X10'3 (4.5-11.0)
[2024-09-23 05:55] LABS: ALANINE AMINOTRANSFERASE 42 U/L (12-78); ALBUMIN 1.6 G/DL (3.4-5.0); ALBUMIN/GLOBULIN RATIO 0.3 (1.1-1.5); ALKALINE PHOSPHATASE 227 IU/L (46-116); ANION GAP 5 (8-16); ASPARTATE AMINO TRANSFERASE 81 U/L (10-37); BILIRUBIN,TOTAL 2.2 MG/DL (0.1-1.0); BLOOD UREA NITROGEN 11 MG/DL (7-18); BUN/CREATININE RATIO 14.7 (10.0-20.0); CALCIUM 8.3 MG/DL (8.5-10.1); CHLORIDE 103 MMOL/L (99-107); CREATININE 0.75 MG/DL (0.60-1.10); GLUCOSE 86 MG/DL (70-104); MAGNESIUM 1.5 MG/DL (1.5-2.4); SODIUM 134 MMOL/L (135-145); TOTAL PROTEIN 6.7 G/DL (6.4-8.2); eCRCL 119 ML/MIN; eGFR > 90 ML/MIN
[2024-09-23 06:00] VITALS: BP 108/75; PULSE 73; RESP 20; TEMP 98.3; O2SAT 97
[2024-09-23 08:45] VITALS: RESP 18; O2SAT 97
[2024-09-23 09:16] LABS: TOTAL CELLS COUNTED 100
[2024-09-23 09:17] LABS: ANISOCYTOSIS 1+; PLATELET ESTIMATE NORMAL; TARGET CELLS 1+
[2024-09-23 09:18] LABS: POLYCHROMASIA 1+
[2024-09-23 10:00] VITALS: BP 132/94; PULSE 89; RESP 21; TEMP 97.6; O2SAT 97
[2024-09-23] MEDS ORDERED: CEFD300C3 PO (10:45)
[2024-09-23] MEDS ORDERED: SPIR50TA5 PO (10:45)
[2024-09-23] MEDS ORDERED: FOLI1TAB27 PO (10:45)
[2024-09-23] MEDS ORDERED: FURO-149 PO (10:45)
--- NOTE | 2024-09-23 15:04 | HISTORY AND PHYSICAL ---
History & Physical Providers to CC ~ History of Present Illness Allergies: Coded Allergies: ketorolac (Verified Allergy, Severe, Hives, 04/05/24) hydroxyzine (Unverified Allergy, Mild, hives, 04/05/24) heparin (Verified Adverse Reaction, Intermediate, 09/05/24) "makes my head feel weird" Home Medications Home Medications Active Cefdinir 300 Mg Capsule 1 Cap PO Q12H 7 Days Spironolactone 50 Mg Tablet 100 Mg PO DAILY@0830 30 Days Lasix (Furosemide) 40 Mg Tablet 40 Mg PO DAILY 30 Days Folic Acid* (Folic Acid) Y Tab 1 Mg PO DAILY 30 Days Ibuprofen 800 Mg Tablet 1 Tab PO Q8H 10 Days Reported Sertraline HCl 50 Mg Tablet 1 Tab PO DAILY Sildenafil Citrate 100 Mg Tablet 1 Tab PO DAILY PRN Flomax (Tamsulosin HCl) 0.4 Mg Cap.sr.24h 1 Cap PO DAILY Family History Family History: Patient reports no known family medical history. 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
--- NOTE | 2024-09-23 15:09 | DISCHARGE SUMMARY ---
Discharge Summary Providers to CC ~ Discharge Summary Admission Diagnosis: Acute decompensated liver failure, ETOH Hospital Course DATE OF ADMISSION: 09/05/24 DATE OF DISCHARGE: 09/23/24 Discharge Diagnosis\\Comment: Acute decompensated liver failure, MELD score 22 Hepatic encephalopathy Alcohol-induced hepatitis longstanding history of EtOH abuse Cirrhosis Alcohol withdrawal DTs Hypokalemia Hypophosphatemia Hyponatremia Ascites, moderate Cholecystitis Hypokalemia Hypomagnesemia Severe protein calorie malnutrition Operations\\Procedures: None Consultants: None Complications: None Condition on DC: Stable New Medications: Cefdinir (Cefdinir) 300 Mg Capsule 1 CAP PO Q12H for 7 Days, #14 CAP 0 Refills Furosemide (Lasix) 40 Mg Tablet 40 MG PO DAILY for 30 Days, #30 TAB Folic Acid* (Folic Acid*) Y Tab 1 MG PO DAILY for 30 Days, #30 TAB Spironolactone (Spironolactone) 50 Mg Tablet 100 MG PO DAILY@0830 for 30 Days, #60 TAB Continued Medications: Ibuprofen (Ibuprofen) 800 Mg Tablet 1 TAB PO Q8H for 10 Days, #30 TAB Sertraline HCl (Sertraline HCl) 50 Mg Tablet 1 TAB PO DAILY Sildenafil Citrate (Sildenafil Citrate) 100 Mg Tablet 1 TAB PO DAILY PRN for ERECTILE DYSFUNCTION Tamsulosin Hcl (Flomax) 0.4 Mg Cap.sr.24h 1 CAP PO DAILY Discontinued Medications: Amlodipine Besylate (Amlodipine Besylate) 5 Mg Tablet 1 TAB PO DAILY for 30 Days, #30 TAB 0 Refills Ciprofloxacin HCl (Cipro) 250 Mg Tablet 1 TAB PO DAILY for 30 Days, #30 TAB 0 Refills Discharge Summary: History of Present Illness From H&P: "This is a 38-year-old male who was brought in by his girlfriend this morning the patient has been getting more weak and has been jaundice. The patient is a heavy alcoholic though he has cut back to a pt today used to drink a 5th of vodka a day last time the patient drank any alcohol was at 5:00 a.m.. The patient states that his vision was blurry this morning however it is improv ing- pertinent findings serum ammonia level of 95 serum potassium 2.7 bilirubin of 15 and a INR of 1.6, CT scan of the abdomen and pelvis demonstrated distended gallbladder possible mild fat stranding likely secondary to cholecystitis. The patient is admitted to the ortho floor on a court monitor with the alcohol withdrawal protocol in place." Hospital Course Diagnostic findings were notable for elevated INR >1.5, significant transaminitis with elevated t.bili, positive ethyl alcohol, hypokalemia, elevated ammonia level, CT abdomen/pelvis and ultrasound abdomen indicating hepatomegaly and moderate abdominal ascites, leukocytosis, procal >0.25, tachycardia. Physical assessment was notable for metabolic encephalopathy. Pertinent negative findings were negative chest x-ray, negative head CT, normal serum glucose, normal lipase. Patient was placed on seizure precaution, alcohol withdrawal and potassium replacement protocol and was treated with empirical antibiotics, lactulose, supplemental nutrition. IR Dr. Freire was consulted for paracentesis however, paracentesis was not done due to abdominal sonogram demonstrating only a small pocket near the right upper quadrant. Hence, patient was treated with diuretics and propranolol with improvement of amount of ascitic fluid. Repeat CT abdomen/pelvis indicated no acute intrathoracic or intraabdominal abnormality and no focal fluid collection. Patient did not experience further complications throughout the entire hospital stay and made a good recovery. Patient was seen and examined on the day of discharge. On day of discharge, vss and labs unremarkable. All labs, diagnostic workups, discharge plan discussed with patient in details during visit before discharge. All questions and concerns answered to the best of my professional knowledge. Patient ambulates independently. Patient is to be discharged home to self and to follow-up with PCP within 2 weeks. Physical Exam General: Generalized jaundice, A&Ox3, NAD HEENT: Normocephalic, PERRLA Neck: Supple, trachea midline, no JVD Chest: Clear to auscultation bilaterally Cardiovascular: RRR, S1&S2 GI: Soft and nontender Extremities: No cyanosis/clubbing/or edema CONTRACT PARALEGAL: CN II-XII intact, no focal deficits Musculoskeletal: No paraspinal muscle tenderness, no muscle spasm Skin: Warm and intact *Problems/Diagnosis: (1) Hepatic encephalopathy Status: Acute Total Time Spent on D/C: > 30 Minutes Date of Service: September 23, 2024 Billing Provider: PARAM LAY Common Visit Codes: 76327-PBH/OBS DISCH DAY >30min PARAM LAY September 23, 2024 15:09
== END 2024-09-23 12:15 | disposition home or self-care (01) ==
LOC: ER 09:56 → ED HOLD 12:15 → ORTHO 4S 16:45 → SUR 3N 09-13 22:19
PROVIDERS: ADMIT Family Medicine; ATTEND Family Medicine
PROC: BW251ZZ Computerized Tomography (CT Scan) of Chest, Abdomen and Pelvis using Low Osmolar Contrast (ICD-10-PCS; principal; 2024-09-19)
DX: K80.00 Calculus of gallbladder with acute cholecystitis without obstruction (principal); G93.41 Metabolic encephalopathy; F10.231 Alcohol dependence with withdrawal delirium; K70.40 Alcoholic hepatic failure without coma; E43 Unspecified severe protein-calorie malnutrition; K76.82 Hepatic encephalopathy; K70.11 Alcoholic hepatitis with ascites; E87.1 Hypo-osmolality and hyponatremia; K70.31 Alcoholic cirrhosis of liver with ascites; E83.39 Other disorders of phosphorus metabolism; R21 Rash and other nonspecific skin eruption; E87.6 Hypokalemia; D72.829 Elevated white blood cell count, unspecified; K82.8 Other specified diseases of gallbladder; F14.90 Cocaine use, unspecified, uncomplicated; Z90.49 Acquired absence of other specified parts of digestive tract; Z68.23 Body mass index [BMI] 23.0-23.9, adult
CPT/HCPCS: 36415; 70450; 71045; 71046; 71260; 74176; 74177; 76700; 76705; 80053; 80305; 80320; 81001; 82140; 82948; 83690; 83735; 84100; 84132; 84145; 85007; 85008; 85025; 85027; 85610; 86592; 86703; 86704; 86705; 87040; 87081; 87324; 87340; 87449; 87491; 87529; 87591; 92508; 92616; 93005; 97110; 97116; 97530; 99285; A4615; A6212; A6250; A6258; G0378; J0696; J1644; J1938; J2270; J2543; J3360; J3475; J3480; J3490; J7030; J7060; Q9967

== ENCOUNTER 2024-12-05 23:27 | Emergency (ER) | payer SELFPAY ==
[~2024-12-05] VITALS: Ht 167.6 cm; Wt 61.0 kg
[~2024-12-05 23:27] MED LIST changes: -AMLO-315 PO; +CEFD300C3 PO; -CIPR-260 PO; +FOLI1TAB27 PO; +FURO-149 PO; +SPIR50TA5 PO
[2024-12-05 23:32] VITALS: TEMP 97.2
--- NOTE | 2024-12-05 23:51 | ELECTROCARDIOGRAPH REPORT ---
[facility] Test Date: 2024-12-05 Test Time: 23:48:54 Pat Name: TOMMY WHITE Department: EMERGENCY ROOM Room: Gender: M Rn Interventional: JOSE : 1985 Requested By: PARVEZ FLORES Order Number: [id number] Reading MD: Measurements Intervals [place] Rate: 109 P: 66 MD: 139 QRS: 76 QRSD: 90 T: 9 QT: 329 QTc: 444 Interpretive Statements Sinus tachycardia Consider left ventricular hypertrophy Please click the below link to view image of tracing.
[2024-12-06 00:06] LABS: MEAN PLATELET VOLUME 8.3 FL (7.4-10.4); RED CELL DISTRIBUTION WIDTH 14.4 % (11.5-14.5)
[2024-12-06 00:23] LABS: CREATININE 0.81 MG/DL (0.60-1.10); ETHANOL 191 MG/DL (<10); TOTAL CARBON DIOXIDE 26.8 MMOL/L (24-32); eCRCL 105 ML/MIN; eGFR > 90 ML/MIN
[2024-12-06] MEDS: normal saline 1000ml 1,000 ML IV ONE (00:41)
[2024-12-06 00:44] VITALS: BP 147/108; PULSE 113; RESP 14; O2SAT 98
--- NOTE | 2024-12-06 01:30 | Physician Documentation ---
History of Present Illness ~ General Chief Complaint: Abdominal Pain Stated Complaint: ABD AND BACK PAIN, LEG NUMBNESS Time Seen by MD: 01:21 Primary Medical Doctor: NO PMD Mode of Arrival: POV History of Present Illness Initial Comments Chief Complaint: Abdominal pain Caveat: None Independent Historians: Paramedics History of Present Illness: Patient is a 39-year-old man who comes in complaining of diffuse abdominal pain for one month and generalized weakness. Patient denies any nausea or vomiting. No diarrhea. Patient denies any fever. Patient drinks alcohol daily. Patient's states he drinks a L of alcohol a day. Patient drank prior to arrival. Review of systems: All systems were reviewed and are negative except for what is indicated in the history of present illness. Past Medical History: Alcoholism Past Surgical History: Noncontributory Social History: Heavy daily alcohol use, tobacco use, methamphetamine use Medications: Reviewed as documented Nursing Notes Allergies: Reviewed as documented in Nursing Notes Medication Reconciliation Allergies: Coded Allergies: ketorolac (Verified Allergy, Severe, Hives, 04/05/24) hydroxyzine (Unverified Allergy, Mild, hives, 04/05/24) heparin (Verified Adverse Reaction, Intermediate, 09/05/24) "makes my head feel weird" Scheduled Cefdinir (Cefdinir), 1 CAP PO Q12H Folic Acid* (Folic Acid*), 1 MG PO DAILY Furosemide (Lasix), 40 MG PO DAILY Ibuprofen (Ibuprofen), 1 TAB PO Q8H Sertraline HCl (Sertraline HCl), 1 TAB PO DAILY, (Reported) Spironolactone (Spironolactone), 100 MG PO DAILY@0830 Tamsulosin Hcl (Flomax), 1 CAP PO DAILY, (Reported) Scheduled PRN Sildenafil Citrate (Sildenafil Citrate), 1 TAB PO DAILY PRN for ERECTILE DYSFUNCTION, (Reported) Past Medical History Past Medical History: No Pertinent History Past Surgical History: noncontributory Patient History: Patient reports no known family medical history. Alcohol Use: Heavy Drug Use: cocaine Lives with: S/O Lives In: Home Occupation: employed Review of Systems All Other Systems at this time: Reviewed and Negative ROS Patient denies any other acute symptoms other than above. All other systems are negative Physical Exam Physical Exam Vital Signs: RN Vital Signs have been reviewed: Yes, Temperature: 97.2, Source: Temporal, Heart Rate: 113, Respiratory Rate: 14, BP: 147/108, Pulse Oximetry: 98, Weight: 61.000 Oxygen Flow Rate: 0 Pulse Oximetry Reflects: adequate oxygenation Physical Exam General Appearance: No distress, disheveled, intoxicated HEENT: Normal OP, moist oral mucosa, PERRL, EOMI Neck: supple, normal ROM, trachea midline Pulmonary: No respiratory distress, CTA, BS equal Cardiac: RRR, no murmur, rub or gallop, GI: nondistended, soft, nontender, normal bowel sounds, no guarding, no rebound Extremities: normal ROM, no swelling, non-tender Skin: intact, dry, warm, no rashes Neuro: AAOx3, slurred speech, no focal motor weakness Psych: normal affect, good eye contact, no apparent hallucination, normal speech Progress Results/Orders Results/Orders Orders - PARVEZ FLORES MD Straight Cath For Urine Sample (12/05/24 23:47) Completed Orders - PARVEZ FLORES MD Urinalysis, Cult If Indicated (12/05/24 23:47) Cbc/Diff (12/05/24 23:47) BMP (12/05/24 23:47) Lipase (12/05/24 23:47) CMP (12/05/24 23:47) * Iv Access / Saline Lock * (12/05/24 23:47) Drug Screen, Urine (12/05/24 23:48) Ethanol (12/05/24 23:48) Electrocardiogram (12/05/24 ) Normal Saline 1000ml (0.9% Sodium Chlori (12/05/24 23:50) Laboratory Tests Test 12/05/24 23:57 12/06/24 01:24 White Blood Count 8.4 Red Blood Count 5.36 Hemoglobin 18.1 *H Hematocrit 53.2 H Mean Corpuscular Volume 99.2 H Mean Corpuscular Hemoglobin 33.8 H Mean Corpuscular Hemoglobin Concent 34.1 Red Cell Distribution Width 14.4 Platelet Count 171 Mean Platelet Volume 8.3 Neutrophils (%) (Auto) 41.3 L Lymphocytes (%) (Auto) 49.2 Monocytes (%) (Auto) 8.6 Eosinophils (%) (Auto) 0.5 Basophils (%) (Auto) 0.4 Neutrophils # (Auto) 3.5 Lymphocytes # (Auto) 4.1 Monocytes # (Auto) 0.7 Eosinophils # (Auto) 0.0 Basophils # (Auto) 0.0 CBC Comment Sodium Level 137 Potassium Level 3.3 L Chloride Level 101 Carbon Dioxide Level 26.8 Anion Gap 9 Blood Urea Nitrogen 5 L Creatinine 0.81 Estimated GFR/1.73 m2 > 90 BUN/Creatinine Ratio 6.2 L Glucose Level 101 Calcium Level 9.0 Total Bilirubin 0.8 Aspartate Amino Transf (AST/SGOT) 122 H Alanine Aminotransferase (ALT/SGPT) 38 Alkaline Phosphatase 148 H Total Protein 8.8 H Albumin 3.8 Globulin 5.0 H Albumin/Globulin Ratio 0.8 L Lipase 14 L Chemistry Comments Ethyl Alcohol Level 191 H Urine Specimen Description Cln catch midstream Urine Color Yellow Urine Clarity Clear Urine pH 6.0 Urine Specific [place] <=1.005 Urine Protein Negative Urine Glucose (UA) Negative Urine Ketones Negative Urine Occult Blood Negative Urine Nitrite Negative Urine Bilirubin Negative Urine Urobilinogen 0.2 Urine Leukocyte Esterase Negative Urine Culture Indicated Not ind Volume Urine Centrifuged 10 ml Urine Comment Urine Opiates Screen Negative Urine Methadone Screen Negative Urine Fentanyl Screen Negative Urine Barbiturates Screen Negative Urine Phencyclidine Screen Negative Urine Amphetamines Screen Positive Urine Benzodiazepines Screen Negative Urine Cocaine Screen Negative Urine Cannabinoids Screen Negative Drug Screen Comment Medical Decision Making Findings Differential diagnosis includes but is not limited to: Alcohol intoxication, substance abuse, alcohol withdrawal, electrolyte abnormalities, acute kidney injury, dehydration Laboratory data independent interpretation: CBC: Hemoglobin elevated at 18.1 CMP: Potassium mildly low at 3.3, normal renal function, total bilirubin is normal at 0.8, AST is elevated at 122, ALT is elevated at 38, alk-phos is elevated at 148, lipase is normal at 14 Toxicology: Urine drug screen positive for methamphetamine, blood alcohol level 191 Emergency department course/medical decision-making: Patient presents with abdominal pain and alcohol intoxication. Patient is otherwise neurologically intact. Patient's abdominal exam is unremarkable. Patient's lab work is unremarkable. Patient does not require imaging. Patient is abdominal pain is not acute. May be related to alcoholic gastritis. Patient is given 1 L of normal saline. He does not appear to be in any pain. Patient is stable for discharge. Departure Time of Disposition: 01:31 Disposition: HOME / SELF CARE / HOMELESS Impression: Primary Impression: Encounter for medical screening examination Additional Impression: Alcohol intoxication Qualified Codes: F10.929 - Alcohol use, unspecified with intoxication, unspecified Condition: Stable Discharge Instructions: Medical Screening Exam Additional Instructions: YOU NEED TO FOLLOW UP WITH YOUR PRIMARY CARE DOCTOR FOR ALL OF YOUR MEDICATIONS AND CHRONIC MEDICAL PROBLEMS. FOLLOW UP WITH [facility]. TELL THEM YOU WERE REFERRED FROM THE ER. YOU MAY ALSO TRY GOING TO [facility]. Referrals: [facility] Education Educated: Patient Educated regarding: diagnosis, treatment, need for follow up Signature Scribe Signature: No scribe Attestation: No scribe PARVEZ FLORES MD Dec 06, 2024 01:30
[2024-12-06 02:35] LABS: URINE AMPHETAMINE SCREEN POSITIVE (Neg); URINE BARBITUATE SCREEN NEGATIVE (Neg); URINE BENZODIAZEPINES SCREEN NEGATIVE (Neg); URINE CANNABINOID SCREEN NEGATIVE (Neg); URINE COCAINE SCREEN NEGATIVE (Neg); URINE METHADONE SCREEN NEGATIVE (Neg); URINE OPIATE SCREEN NEGATIVE (Neg); URINE PHENCYCLIDINE SCREEN NEGATIVE (Neg)
[2024-12-06 02:37] LABS: LEUKOCYTE ESTERASE ,URINE NEGATIVE (Neg); OCCULT BLOOD,URINE NEGATIVE (Neg)
[2024-12-06 03:00] LABS: NITRITES, URINE NEGATIVE (Neg); UA COLLECTION TYPE CLN CATCH MIDSTREAM
== END 2024-12-06 02:03 | disposition home or self-care (01) ==
LOC: ER 23:28
DX: R10.9 Unspecified abdominal pain (principal); F10.129 Alcohol abuse with intoxication, unspecified; R53.1 Weakness; Z88.8 Allergy status to other drugs, medicaments and biological substances; Z79.899 Other long term (current) drug therapy; Y90.9 Presence of alcohol in blood, level not specified
CPT/HCPCS: 36415; 80053; 80305; 80320; 81003; 83690; 85025; 93005; 96360; 99284; J7030

== ENCOUNTER 2025-02-18 05:52 | Emergency (ER) | payer MEDICAID ==
[~2025-02-18] VITALS: Ht 167.6 cm; Wt 65.5 kg
[2025-02-18] MEDS: LidoCAINE 2% Topical Jelly 11mL syringe (UROJET) TOP ONE (06:20)
[2025-02-18 06:48] LABS: MEAN PLATELET VOLUME 7.3 FL (7.4-10.4); RED CELL DISTRIBUTION WIDTH 14.9 % (11.5-14.5)
[2025-02-18 07:09] LABS: CREATININE 0.65 MG/DL (0.60-1.10); TOTAL CARBON DIOXIDE 25.6 MMOL/L (24-32); eCRCL 136 ML/MIN; eGFR > 90 ML/MIN
[2025-02-18 07:39] LABS: LEUKOCYTE ESTERASE ,URINE TRACE (Neg); NITRITES, URINE NEGATIVE (Neg); OCCULT BLOOD,URINE NEGATIVE (Neg)
[2025-02-18 07:44] LABS: UA COLLECTION TYPE CLN CATCH MIDSTREAM
[2025-02-18 07:46] LABS: MUCUS STRANDS FEW /LPF (Neg); SQUAMOUS EPITHELIAL CELL,UR FEW /LPF (FEW)
[2025-02-18] MEDS ORDERED: CEPH-585 PO (07:53)
--- NOTE | 2025-02-18 07:53 | Physician Documentation ---
History of Present Illness ~ Chief Complaint: Flank Pain Stated Complaint: KIDNEY DISCOMFORT Time Seen by MD: 06:01 Primary Medical Doctor: NO PMD Mode of Arrival: EMS, Stretcher HPI 39 year old male reports difficulty urinating and L flank pain. He has a history of BPH and difficulty urinating. Denies fever, N/V/D, dysuria. Medication Reconciliation Allergies: Coded Allergies: ketorolac (Verified Allergy, Severe, Hives, 02/18/25) heparin (Verified Adverse Reaction, Intermediate, 09/05/24) "makes my head feel weird" Scheduled Cefdinir (Cefdinir), 1 CAP PO Q12H Folic Acid* (Folic Acid*), 1 MG PO DAILY Furosemide (Lasix), 40 MG PO DAILY Ibuprofen (Ibuprofen), 1 TAB PO Q8H Sertraline HCl (Sertraline HCl), 1 TAB PO DAILY, (Reported) Spironolactone (Spironolactone), 100 MG PO DAILY@0830 Tamsulosin Hcl (Flomax), 1 CAP PO DAILY, (Reported) Scheduled PRN Sildenafil Citrate (Sildenafil Citrate), 1 TAB PO DAILY PRN for ERECTILE DYSFUNCTION, (Reported) Past Medical History Past Medical History: No Pertinent History Past Surgical History: noncontributory Patient History: Patient reports no known family medical history. Alcohol Use: Heavy Drug Use: cocaine Lives with: S/O Lives In: Home Occupation: employed Review of Systems All Other Systems at this time: Reviewed and Negative Physical Exam Vital Signs: RN Vital Signs have been reviewed: Yes, Temperature: 98.2, Source: Oral, Heart Rate: 91, Respiratory Rate: 18, BP: 156/110, Pulse Oximetry: 100, Weight: 65.450 Oxygen Flow Rate: 0 Physical Exam HEENT: PERRL, moist oral mucosa, EOMI Pulmonary: No respiratory distress MSK: no deformity Skin: w/d/i, no rash Neuro: alert, nonfocal Psych: normal affect Progress Results/Orders Results/Orders Orders - WENDY OLRA MD * Bladder Scan / Post Residual (02/18/25 06:06) * (A) White- Protocol * Q12H@07,19 (02/18/25 06:20) Cult Urine + [place] [address] (02/18/25 07:46) Cephalexin Capsule (Keflex Capsule) (02/18/25 07:50) Completed Orders - WENDY LORA MD Cbc/Diff (02/18/25 06:03) BMP (02/18/25 06:03) Lipase (02/18/25 06:03) CMP (02/18/25 06:03) Lidocaine 2% Jelly 11ml Syr (Glydo-Lidoc (02/18/25 06:20) Ua W/Microscopic, Cult If Ind (02/18/25 07:20) Vital Signs 02/18/25 02/18/25 05:59 06:22 Temp 98.2 Pulse 91 Resp 16 18 B/P (MAP) 156/110 Pulse Ox 100 O2 Flow Rate 0 Laboratory Tests Test 02/18/25 06:28 02/18/25 07:20 White Blood Count 7.2 Red Blood Count 3.58 L Hemoglobin 12.8 L Hematocrit 37.7 L Mean Corpuscular Volume 105.6 H Mean Corpuscular Hemoglobin 35.9 H Mean Corpuscular Hemoglobin Concent 34.0 Red Cell Distribution Width 14.9 H Platelet Count 304 Mean Platelet Volume 7.3 L Neutrophils (%) (Auto) 53.3 Lymphocytes (%) (Auto) 32.4 Monocytes (%) (Auto) 11.9 Eosinophils (%) (Auto) 1.1 Basophils (%) (Auto) 1.3 H Neutrophils # (Auto) 3.8 Lymphocytes # (Auto) 2.3 Monocytes # (Auto) 0.9 Eosinophils # (Auto) 0.1 Basophils # (Auto) 0.1 CBC Comment Sodium Level 139 Potassium Level 3.7 Chloride Level 103 Carbon Dioxide Level 25.6 Anion Gap 10 Blood Urea Nitrogen 9 Creatinine 0.65 Estimated GFR/1.73 m2 > 90 BUN/Creatinine Ratio 13.8 Glucose Level 103 Calcium Level 8.6 Total Bilirubin 1.1 H Aspartate Amino Transf (AST/SGOT) 112 H Alanine Aminotransferase (ALT/SGPT) 57 Alkaline Phosphatase 143 H Total Protein 7.6 Albumin 3.4 Globulin 4.2 Albumin/Globulin Ratio 0.8 L Lipase 16 Chemistry Comments Urine Specimen Description Cln catch midstream Urine Color Yellow Urine Clarity Clear Urine pH 6.0 Urine Specific [place] 1.025 Urine Protein Trace Urine Glucose (UA) Negative Urine Ketones Negative Urine Occult Blood Negative Urine Nitrite Negative Urine Bilirubin Small Urine Urobilinogen 0.2 Urine Leukocyte Esterase Trace H Urine RBC None seen Urine WBC 10-20 H Urine Squamous Epithelial Cells Few Urine Bacteria Few Urine Mucus Few Urine Culture Indicated Indicated Volume Urine Centrifuged 10 ml Urine Comment Medical Decision Making Additional information obtaine: N/A Findings 39 year old male with L flank pain and retention. Bladder scan did not demonstrate significant urinary retention; UA suggested UTI. Rx ABx and return precautions. Urinary Diff Dx:Considerations: Include: Other Genital Diff Dx:Considerations: Include: Other Additional Comment Ddx = pyelonephrtitis, cystitis, urethritis, kidney stone, acute urinary retention. Departure Disposition: HOME / SELF CARE / HOMELESS Impression: Primary Impression: UTI (urinary tract infection) Condition: Stable Discharge Instructions: Urinary Tract Infection, Adult Referrals: NO PRIMARY CARE PROVIDER (PCP) Prescriptions Cephalexin*Monohydrate* (Keflex*) 500 Mg Capsule 1 CAP PO QID, #28 CAP Prov: WENDY LORA MD 02/18/25 Education Educated: Patient, Family Educated regarding: diagnosis, treatment, prognosis, need for follow up Signature Scribe Signature: . Attestation: . WENDY LORA MD Feb 18, 2025 07:53
[2025-02-18 07:56] VITALS: BP 132/94; PULSE 83; RESP 12; TEMP 98.2; O2SAT 99
== END 2025-02-18 08:05 | disposition home or self-care (01) ==
LOC: ER 05:52
DX: N39.0 Urinary tract infection, site not specified (principal); F14.90 Cocaine use, unspecified, uncomplicated; F10.90 Alcohol use, unspecified, uncomplicated; Z88.8 Allergy status to other drugs, medicaments and biological substances; Z79.899 Other long term (current) drug therapy; Y90.9 Presence of alcohol in blood, level not specified
CPT/HCPCS: 36415; 80053; 81001; 83690; 85025; 87088; 99284